=== PATIENT | male | born 1950 | race Caucasian/White ===

== ENCOUNTER 2020-03-30 07:05 | Outpatient (NON) | payer MEDICARE, SELFPAY ==
[2020-04-01 16:42] LABS: SARS-CoV-2 RNA PCR Negative
== END 2020-03-30 07:06 ==
PROVIDERS: PCP Student in an Organized Health Care Education/Training Program; Visit Provider Student in an Organized Health Care Education/Training Program
DX: R52 Pain, unspecified (principal); R68.83 Chills (without fever); Z20.828 Contact with and (suspected) exposure to other viral communicable diseases
CPT/HCPCS: 87635; C9803; U0003

== ENCOUNTER 2020-11-14 09:11 | Observation (INO) | payer MEDICARE, SELFPAY ==
[2020-11-14] VITALS (8 sets, daily range): BP systolic 106–127; BP diastolic 74–81; PULSE 60–69; RESP 16–20; TEMP 36.6–38.4; O2SAT 97–98; BMI 23.3
--- NOTE | ~2020-11-14 | CT_ITS ---
EXAMINATION: CT abdomen pelvis w con EXAM DATE: 11/14/2020 10:59 INDICATION: Low abdominal pain, dysuria. TECHNIQUE: Spiral CT of the abdomen and pelvis was performed following intravenous injection of 100 m L Omnipaque 350. Axial, coronal and sagittal images of the abdomen and pelvis were reviewed. The do se-length product (DLP) for this examination was 325.40 mGy-cm. The exposure was tailored according to patient size (auto mA exposure control), and iterative reconstruction (ASIR) was used as additiona l dose reduction technique. There is no prior study for comparison. FINDINGS: The liver, spleen, adrenal glands and pancreas are unremarkable. Gallbladder is unremarkab le. No biliary obstruction. Portal and splenic veins are patent. Kidneys enhance symmetrically. T here is no hydronephrosis. The prostate is unremarkable. The bladder is unremarkable. There is no retroperitoneal or pelvic lymphadenopathy. There is mild to moderate scattered arteriosclerotic di sease. Mild sigmoid diverticulosis with moderate adjacent inflammation, acute diverticulitis with possible m icroperforation. No gross free intraperitoneal air. No abscess. Inflammatory cancer not entirely excl udable. The stomach and small bowel are unremarkable. There is expected amount of colonic stool. N o free intraperitoneal gas. The heart is normal in size. There are no pericardial or pleural effus ions. Bibasilar subsegmental atelectasis dependent aspects. There are no osteoblastic or osteolytic lesions identified. Small umbilical fat-containing hernia. IMPRESSION: Acute sigmoid diverticulitis with possible microperforation. No abscess. Inflammatory can cer not excludable. Reviewed, dictated and finalized at location B. IMPRESSION: Acute sigmoid diverticulitis with possible microperforation. No abs cess. Inflammatory cancer not excludable.
[2020-11-14] MEDS: FAMOTIDINE 20 MG/2 ML VIAL IV PUSH ×2 (09:38→22:20)
[2020-11-14] MEDS: ONDANSETRON INJ 4 MG/2 ML VIAL IV PUSH (09:38)
[2020-11-14] MEDS: SODIUM CHLORIDE 0.9% IV 1,000 ML 999 ML IV CONT (09:38)
--- NOTE | 2020-11-14 09:44 | ED.GENADULT ---
HPI - General Adult General Chief complaint: Abdominal Pain Stated complaint: Abd Pain Time Seen by Provider: 11/14/20 09:18 Source: patient and RN notes reviewed Mode of arrival: ambulatory Limitations: no limitations History of Present Illness HPI narrative: Patient is a 70-year-old male who presents to emergency department for evaluation of GI discomfort had a liquid stool initially felt as though he may have been constipated took Ex-Lax. Patient notes he has diffuse cramping of the abdomen worse in the suprapubic region. Patient notes prior evening he did have some discomfort with urinating coupled with chills and sweats also reports nausea. Patient denies rectal bleeding emesis melena and on arrival does not appear uncomfortable has not eaten drinking or taking anything for his symptoms today. Patient notes that he is fully vaccinated against Covid Related Data Allergies Allergy/AdvReac Type Severity Reaction Status Date / Time No Known Allergies Allergy Verified 03/29/19 15:12 Review of Systems Review of Systems: All systems reviewed & are unremarkable except as noted in HPI and below PMFSH Surgical History Surgical History H/O inguinal hernia repair History of tonsillectomy Social History Social History Smoking status: Current every day smoker Gender identity (if verbalized by the patient): Male Exam Narrative: Exam Narrative: GENERAL: Well-appearing, well-nourished, and in no acute distress. HEAD: Normocephalic, atraumatic. EYES: PERRLA and EOMI. ENT: Nares clear, no rhinorrhea or epistaxis. Mucous membranes moist. CHEST: Clear to auscultation. No respiratory distress. No wheezes rales or rhonchi HEART: Regular rate and rhythm. No murmur heard. Normal peripheral pulses. ABDOMEN: Soft, generalized tenderness with voluntary guarding, nondistended EXTREMITIES: Normal range of motion. No edema. SKIN: Warm, dry, no rash. NEURO: No focal deficits. Alert and oriented x3. PSYCH: Normal mood and affect. Course Course Emergency Course: Patient in the room at this time aware of case findings treatment plan and diagnosis will be brought into the hospital given his findings for further evaluation is afebrile nontoxic-appearing no distress will be brought onto the surgical team Consultations Consultation #1: Discussed case with Dr. Og general surgeon who will admit the patient clear liquid diet IV antibiotics Date: 11/14/20 Time: 12:20 Vital Signs Vital signs: Vital Signs Temperature 98 F 11/14/20 09:16 Pulse Rate 69 11/14/20 09:16 Respiratory Rate 16 11/14/20 09:16 Blood Pressure 106/81 11/14/20 09:16 Pulse Oximetry 97 11/14/20 09:16 Temperature 98 F 11/14/20 10:27 Pulse Rate 64 11/14/20 10:35 Respiratory Rate 18 11/14/20 10:35 Blood Pressure 115/76 11/14/20 10:35 Pulse Oximetry 97 11/14/20 10:35 Medical Decision Making MDM Narrative Medical decision making narrative: Patient diagnosed microperforation diverticulitis, patient is afebrile nontoxic-appearing no distress felt appropriate inpatient therapy given the microperforation antibiotics fluids and surgical consult established patient agreeing with this plan Vital Signs Vital Signs: Vital Signs Temperature 98 F 11/14/20 09:16 Pulse Rate 69 11/14/20 09:16 Respiratory Rate 16 11/14/20 09:16 Blood Pressure 106/81 11/14/20 09:16 Pulse Oximetry 97 11/14/20 09:16 Temperature 98 F 11/14/20 10:27 Pulse Rate 64 11/14/20 10:35 Respiratory Rate 18 11/14/20 10:35 Blood Pressure 115/76 11/14/20 10:35 Pulse Oximetry 97 11/14/20 10:35 Lab Data Result diagrams: 11/14/20 09:29 11/14/20 09:29 Labs: Lab Results 11/14/20 11/14/20 11/14/20 Range/Units 09:29 09:29 09:29 WBC 12.3 H (4.5-10.0) K/mm3 RBC 4.87 (4.6-6.20) M/mm3 Hgb
[2020-11-14 09:51] LABS: Basophils Percent Auto 0.2 % (0.2-1.2); Hematocrit 46.6 % (42.0-52.0); Immature Granulocyte Absolute 0.07 K/mm3 (0.00-0.031); Immature Granulocyte Percent A 0.6 % (0-0.5); Immature Platelet Fraction Pct 2.1 % (0.9-11.2); Lymphocytes Absolute Auto 0.77 K/mm3 (0.9-3.2); Lymphocytes Percent Auto 6.3 % (18.3-44.2); Mean Corpuscular HGB Conc 34.3 g/dl (32-36); Mean Corpuscular Hemoglobin 32.9 pg (26-34); Mean Corpuscular Volume 95.7 fl (80-100); Mean Platelet Volume 9.5 fl (7.4-10.4); Monocytes Absolute Auto 1.2 K/mm3 (0.1-0.6); Monocytes Percent Auto 9.7 % (2.6-8.5); Neutrophils Absolute Auto 10.3 K/mm3 (1.3-6.7); Neutrophils Percent Auto 83.2 % (45.5-73.1); Platelet Count Result 139 k/mm3 (150-375); Red Blood Count 4.87 M/mm3 (4.6-6.20); Red Cell Distribution Width 12.8 % (11.5-14.5); White Blood Count 12.3 K/mm3 (4.5-10.0)
[2020-11-14 10:05] LABS: Alanine Aminotransferase 17 U/L (4-50); Albumin Level 4.4 g/dL (3.5-5.1); Alkaline Phosphatase 72 U/L (38-126); Anion Gap 11 mmol/L (8-16); Aspartate Amino Transferase 35 U/L (17-59); Blood Urea Nitrogen 18 mg/dL (9-20); Calcium 9.4 mg/dL (8.4-10.2); Carbon Dioxide 24 mmol/L (22-30); Chloride 100 mmol/L (98-107); Estimated CRCL calculation 58 ml/min; Estimated Glomerular Filt Rate 60; Glucose 110 mg/dL (75-110); Lipase 125 U/L (23-300); Sodium 135 mmol/L (137-145)
[2020-11-14 10:06] LABS: Add Urine Microscopic? YES; Appearance Urine Cloudy (Clear); Bacteria Urine Trace /hpf; Bilirubin Urine Negative (Negative); Blood Urine Negative (Negative); Color Urine Amber (Yellow); Glucose Urine UA Negative (Negative); Ketones Urine 1+ mg/dL (Negative); Leukocyte Esterase Ur Negative LEU/UL (Negative); Mucus Urine Few /lpf; Nitrate Urine Negative (Negative); Protein Urine Negative (Negative); RBC Urine 0-2 /hpf (0-2); Specific Grav Ur 1.021 (1.001-1.035); Urobilinogen Urine Negative mg/dL (<2.0); WBC Urine 0-3 /hpf
[2020-11-14] MEDS: HYOSCYAMINE SULFATE 0.125 MG TABLET PO (12:30)
[2020-11-14] MEDS: PANTOPRAZOLE SODIUM IV 40 MG VIAL IV PUSH (12:30)
--- NOTE | 2020-11-14 13:07 | PM.IMHP ---
H&P: HPI History of Present Illness Date/Time: 11/14/20 13:07 Chief Complaint: Lower abdominal pain Narrative: This is a 70-year-old male who presented to the ER with complaints of lower abdominal pain. He reports initially noticing mild pain about 1-2 days ago that he attributed to constipation. He took an OTC laxative and had multiple bowel movements without relief in symptoms. He reports yesterday also having chills and body aches, but no fever. Last night following dinner, his pain worsened and continued through the night. The pain was unrelenting this morning and he presented to the ER for evaluation. Never had this pain in the past. CT scan of the abd/pelvis showed acute sigmoid diverticulitis with microperforation and a small fat-containing umbilical hernia. Labs showed a WBC count of 12,300, but otherwise unremarkable. Our service was contacted by the ED physician for surgical evaluation of the diverticulitis. He is now seen in the ER. He reports his pain has improved with analgesics, but is still present. He does reports some nausea, but no vomiting. He has never had a colonoscopy in the past, and no history of diverticulitis. He reports doing Cologuard multiple times in the past that were all negative. Review of Systems Review of Systems: All systems reviewed & are unremarkable except as noted in HPI and below Constitutional: Constitutional: Reports as per HPI, Reports body ache(s) (yesterday), Reports chills, Denies fatigue, Denies fever(s) and Reports night sweats Eyes: Eyes: Reports no additional eye complaints and Denies change in vision ENT: Reports system reviewed and no additional complaints, except as documented and Reports Normal hearing present Cardiovascular: Cardiovascular: Reports no additional cardiovascular complaints, Denies chest pain and Denies leg edema Respiratory: Respiratory: Reports no additional respiratory complaints, Denies cough and Denies dyspnea Gastrointestinal: Gastrointestinal: Reports as per HPI, Reports no additional gastrointestinal complaints, Reports abdominal pain (suprapubic), Denies melena, Denies bloating, Denies hematochezia, Denies change in bowel habits, Denies tenesmus, Denies diarrhea, Denies loose stools, Reports nausea and Denies vomiting Genitourinary: Genitourinary: Denies hematuria and Denies dysuria Musculoskeletal: Musculoskeletal: Denies abnormal gait, Denies deformity and Denies joint swelling Integumentary/Breasts: Skin/Breast: Denies wounds and Denies jaundice Neurologic: Reports system reviewed and no additional complaints, except as documented, Denies dizziness, Denies focal weakness, Denies numbness and Denies tingling Psychiatric: Psychiatric: Denies anxiety and Denies depression [facility] Past Medical History Medical History History of hepatitis C Treated in 2018 Surgical History Surgical History H/O inguinal hernia repair Open right inguinal hernia repair x 2 History of tonsillectomy Family History Family History Other No pertinent family history Social History Social History Smoking status: Former smoker Additional smoking assessment comments: Smoked for 30 years and quit over 10 years ago Alcohol intake: never Substance use: never Living arrangements: alone Additional living arrangements comments: Lives alone. Occupation/Education: retired Additional occupation/education comments: Living in [place], from [place], for the past 2 years working on an [employer]ion. 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 Gender identity (if verbalized by the patient): Male Meds Home Medications and Allergies Allergies Allergy/AdvReac Type Severity Reaction Status Date / Time No Known Allergies Allergy Verified 03/29/19 15:12 Mayuri
[2020-11-14] MEDS: MORPHINE SULFATE (*CRX) 4 MG/ML INJ IV PUSH (13:10)
[2020-11-14] MEDS: LACTATED RINGERS 1,000 ML 125 ML IV CONT ×2 (13:14→23:43)
--- NOTE | 2020-11-14 14:00 | PC.NURSE ---
Pt asked Adeline Duran to go to car to retrieve overnight bag, he agreed. Pt ambulatory to vehicle and back without incident.
--- NOTE | 2020-11-14 14:47 | ADMGEN ---
This patient, Dorian Stephens, was admitted to 2 Medical Room 258-. Patient/family oriented to hospital policies and general routines including ID bracelet, bed and alarms, visiting hours, pain management, procedures, bathroom and other care routines, personal items, smoking policy, room service/diet, and visiting hours. Information on how to activate the Rapid Response Team has been discussed. Patient/Family are encouraged to report perceived risks to care and to ask questions if they do not understand what they are told or what they should do.
--- NOTE | 2020-11-14 20:15 | PC.NURSE ---
Per Dr. Og no blood cultures needed at this time. Treat fevers with ordered PRN IV tylenol.
[2020-11-14] MEDS: MIRTAZAPINE 15 MG TABLET PO (20:28)
[2020-11-15 05:16] LABS: Basophils Percent Auto 0.2 % (0.2-1.2); Eosinophils Absolute Auto 0.1 K/mm3 (0-0.3); Eosinophils Percent Auto 1.2 % (0-4.4); Hematocrit 41.3 % (42.0-52.0); Hemoglobin 14.1 g/dL (14.0-18.0); Immature Granulocyte Absolute 0.05 K/mm3 (0.00-0.031); Immature Granulocyte Percent A 0.5 % (0-0.5); Immature Platelet Fraction Pct 1.9 % (0.9-11.2); Lymphocytes Percent Auto 11.8 % (18.3-44.2); Mean Corpuscular HGB Conc 34.1 g/dl (32-36); Mean Corpuscular Hemoglobin 33.2 pg (26-34); Mean Corpuscular Volume 97.2 fl (80-100); Mean Platelet Volume 9.6 fl (7.4-10.4); Monocytes Absolute Auto 0.8 K/mm3 (0.1-0.6); Monocytes Percent Auto 8.8 % (2.6-8.5); Neutrophils Absolute Auto 7.3 K/mm3 (1.3-6.7); Neutrophils Percent Auto 77.5 % (45.5-73.1); Platelet Count Result 120 k/mm3 (150-375); Red Blood Count 4.25 M/mm3 (4.6-6.20); Red Cell Distribution Width 12.8 % (11.5-14.5); White Blood Count 9.4 K/mm3 (4.5-10.0)
[2020-11-15 05:18] VITALS: BP 117/67; PULSE 52; RESP 18; TEMP 37.2; O2SAT 97
[2020-11-15 06:19] LABS: Anion Gap 6 mmol/L (8-16); Blood Urea Nitrogen 14 mg/dL (9-20); Calcium 8.6 mg/dL (8.4-10.2); Carbon Dioxide 29 mmol/L (22-30); Chloride 104 mmol/L (98-107); Estimated CRCL calculation 53 ml/min; Estimated Glomerular Filt Rate 55; Glucose 91 mg/dL (75-110); Sodium 139 mmol/L (137-145)
[2020-11-15] MEDS: SACCHAROMYCES BOULARDII 250 MG CAPSULE PO ×3 (09:16→17:26)
[2020-11-15] MEDS: FAMOTIDINE 20 MG/2 ML VIAL IV PUSH ×2 (09:16→20:58)
--- NOTE | 2020-11-15 09:56 | PM.PNGS ---
Progress Note: A&P Assessment and Plan (1) Diverticulitis of colon with perforation: Code(s): K57.20 - Diverticulitis of large intestine with perforation and abscess without bleeding Status: Acute Assessment and Plan: better, exam improved, cont abx, soft diet, home in am if tabatha diet Subjective Subjective Date/Time Seen: 11/15/20 09:56 feels better, soreness improved, tabatha clears Review of Systems Review of Systems: All systems reviewed & are unremarkable except as noted in HPI and below Exam Const: General: cooperative, comfortable and no acute distress Nutritional Appearance: average body habitus Orientation/consciousness: patient oriented x3 Resp: Effort & Inspection: normal respiratory effort Auscultation: clear to auscultation bilaterally Cardio: Rate: regular rate Rhythm: regular rhythm GI: Inspection: normal to inspection GI Palp: Yes Soft to palpation, Yes Tenderness to palpation present (GI) and No Guarding due to palpation present (GI) Other: soft, sl dist, mild TTP LLQ Objective Data Vital Signs Vital Signs: Vital Signs - 24 hr 11/14/20 10:27 11/14/20 10:35 11/14/20 15:02 Temperature 36.6 C 36.8 C Pulse Rate 64 64 Respiratory Rate 18 18 Blood Pressure 115/76 115/76 Pulse Oximetry 97 97 11/14/20 15:17 11/14/20 20:22 11/14/20 20:25 Temperature 36.6 C 38.4 C H 38.4 C H Pulse Rate 60 64 Respiratory Rate 18 20 Blood Pressure 125/78 127/74 Pulse Oximetry 97 98 11/14/20 22:25 11/15/20 05:18 Temperature 37.1 C 37.2 C Pulse Rate 52 L Respiratory Rate 18 Blood Pressure 117/67 Pulse Oximetry 97 Intake/Output Intake/Output: Intake & Output 11/12/20 11/13/20 11/14/20 11/15/20 23:59 23:59 23:59 23:59 Intake Total 2660 970 Output Total 500 1800 Balance 2160 -830 Meds/Results Medications: Active Medications Generic Name Dose Route Start Last Admin Trade Name Freq PRN Reason Stop Dose Admin Famotidine 20 mg 11/14/20 21:00 11/15/20 09:16 Famotidine 20 Mg/2 Ml Vial IV PUSH 20 mg Q12HR DAWIT Administration Acetaminophen 1,000 mg in 100 mls @ 400 mls/hr 11/14/20 12:21 11/14/20 20:37 Ofirmev 1,000 Mg Ivpb IVPB 11/15/20 12:22 Infused Q6H PRN Infusion Mild Pain (1-3) or Fever Lactated Ringer's 1,000 mls @ 125 mls/hr 11/14/20 12:25 11/14/20 23:43 Lr - Lactated Ringers Iv IV CONT 125 mls/hr .Q8H DAWIT Administration Piperacillin/Tazobactam/Dextrose 3.375 gm in 50 mls @ 100 mls/hr 11/14/20 18:00 11/15/20 05:35 Zosyn 3.375 Gm/D5w 50ml Pm IVPB Infused Q6HR DAWIT Infusion Mirtazapine 15 mg 11/14/20 21:00 11/14/20 20:28 Mirtazapine 15 Mg Tablet PO 15 mg HS DAWIT Administration Ondansetron HCl 4 mg 11/14/20 12:21 Ondansetron Inj 4 Mg/2 Ml Vial IV PUSH Q4H PRN Nausea Pantoprazole Sodium 40 mg 11/15/20 09:00 Pantoprazole Sodium Iv 40 Mg Vial IV PUSH QAM DAWIT Saccharomyces Boulardii 250 mg 11/15/20 09:00 11/15/20 09:16 Saccharomyces Boulardii 250 Mg Capsule PO 250 mg TID DAWIT Administration Radiology Results: ITS Impressions Abdomen/Pelvis CT 11/14/20 11:06 IMPRESSION: Acute sigmoid diverticulitis with possible microperforation. No abscess. Inflammatory cancer not excludable. Labs Labs: Laboratory Results - last 24 hr 11/14/20 11/14/20 11/14/20 09:29 09:29 09:29 WBC 12.3 H RBC 4.87 Hgb 16.0 Hct 46.6 MCV 95.7 MCH 32.9 MCHC 34.3 RDW 12.8 Plt Count 139 L MPV 9.5 Immature Gran % (Auto) 0.6 H Neut % (Auto) 83.2 H Lymph % (Auto) 6.3 L [place] % (Auto) 9.7 H Eos % (Auto) 0.0 Baso % (Auto) 0.2 Lymph # (Auto) 0.77 L [place] # (Auto) 1.2 H Eos # (Auto) 0.0 Baso # (Auto) 0.0 Abs Immat Gran (auto) 0.07 H Absolute Neuts (auto) 10.3 H Absolute Nucleated RBC 0.0 Nucleated RBC % 0.0 % Immature Plt Fraction 2.1 Sodium 135 L Potassium 4.0 Chloride 100 Carbon Dioxi
[2020-11-15 10:35] VITALS: O2SAT 95
[2020-11-15] MEDS: PANTOPRAZOLE SODIUM IV 40 MG VIAL IV PUSH (11:15)
[2020-11-15 14:00] VITALS: BP 111/66; PULSE 50; RESP 16; TEMP 37.2; O2SAT 98
[2020-11-15] MEDS: LACTATED RINGERS 1,000 ML 125 ML IV CONT (20:57)
[2020-11-15] MEDS: MIRTAZAPINE 15 MG TABLET PO (20:59)
[2020-11-15 21:23] VITALS: BP 110/63; PULSE 58; RESP 18; TEMP 36.8; O2SAT 98
[2020-11-16] MEDS: LACTATED RINGERS 1,000 ML 125 ML IV CONT (05:21)
[2020-11-16 06:00] VITALS: BP 129/74; PULSE 60; RESP 18; TEMP 36.7; O2SAT 94
[2020-11-16 07:02] LABS: Hematocrit 44.8 % (42.0-52.0); Hemoglobin 15.8 g/dL (14.0-18.0); Immature Platelet Fraction Pct 2.9 % (0.9-11.2); Mean Corpuscular HGB Conc 35.3 g/dl (32-36); Mean Corpuscular Hemoglobin 33.6 pg (26-34); Mean Corpuscular Volume 95.3 fl (80-100); Mean Platelet Volume 9.6 fl (7.4-10.4); Platelet Count Result 127 k/mm3 (150-375); Red Cell Distribution Width 12.4 % (11.5-14.5); White Blood Count 6.3 K/mm3 (4.5-10.0)
[2020-11-16] MEDS: FAMOTIDINE 20 MG/2 ML VIAL IV PUSH (08:37)
[2020-11-16] MEDS: PANTOPRAZOLE SODIUM IV 40 MG VIAL IV PUSH (08:37)
[2020-11-16] MEDS: SACCHAROMYCES BOULARDII 250 MG CAPSULE PO ×2 (08:37→12:30)
[2020-11-16] MEDS: polyethylene glycoL 3350 17 GM POWD.PACK PO (11:44)
[2020-11-16 14:00] VITALS: BP 144/83; PULSE 53; RESP 16; TEMP 36.4; O2SAT 98
--- NOTE | 2020-11-16 14:25 | PM.DS ---
DS: Admitting Diagnosis Admitting Diagnosis Admitting Diagnosis: Diverticulitis DS: Discharge Diagnosis Discharge Diagnosis (1) Diverticulitis of colon with perforation: Code(s): K57.20 - Diverticulitis of large intestine with perforation and abscess without bleeding Status: Acute DS: Summary Hospital Course Reason for hospitalization: diverticulitis Hospital Course: this is a 70-year-old man presented to the emergency department on 11/14/2020 with complaints of left lower quadrant abdominal pain. He was found have an elevated white blood count and CT showed acute diverticulitis with possible microperforation. He was placed on Zosyn and was admitted to the hospital. His pain was controlled and he was initially placed on bowel rest. Once his pain improved he was started on a clear liquid diet and was slowly advanced over 2 days to a solid diet. His white blood count normalized and he showed no fevers or other worsening symptoms. On 11/16/2020 his pain was almost resolved and he was tolerating a regular diet. Was then discharged on 11/17/2019. Status at Discharge Functional status at discharge: independent ambulation Overall status at discharge: patient is progressing back to baseline Time Spent with Patient Time attestation: Total time spent providing and/or coordinating discharge services: Time spent: Less than 30 minutes Exam Const: General: comfortable and no acute distress Orientation/consciousness: patient oriented x3 Limitations: no limitations Resp: Effort & Inspection: normal respiratory effort Auscultation: clear to auscultation bilaterally Cardio: Jugular venous distension: no JVD Rate: regular rate Rhythm: regular rhythm Heart sounds: S1 normal heart sound present and S2 normal heart sound present GI: Inspection: normal to inspection and non-distended GI Palp: Yes Soft to palpation, Yes Tenderness to palpation present (GI) (mild left lower quadrant), No Guarding due to palpation present (GI) and No Rebound tenderness present DS: Data Data Completed and Pending Labs on day of discharge: Labs from last 24 hours 11/16/20 06:51 WBC 6.3 RBC 4.70 Hgb 15.8 Hct 44.8 MCV 95.3 MCH 33.6 MCHC 35.3 RDW 12.4 Plt Count 127 L MPV 9.6 % Immature Plt Fraction 2.9 Imaging Radiologist's impression: ITS Impressions Abdomen/Pelvis CT 11/14/20 11:06 IMPRESSION: Acute sigmoid diverticulitis with possible microperforation. No abscess. Inflammatory cancer not excludable. Discharge Plan Discharge Attending physician on discharge: Juany Og Consulting providers: Juan Duran Discharging Clinician: Jesus Marques Patient Disposition: Home, Self-Care Activity: may shower, unlimited and as tolerated Diet: low fiber Discharge Instructions: Stay on low fiber diet for 2 weeks, then may slowly transition back to a high fiber diet. Patient Instructions: Antibiotic Form, Diverticulitis (DC), Diverticulitis (GEN), Low Fiber Diet (GEN) Stand Alone Forms: General Discharge Information Follow-up/Referrals: Juany Og MD [Physician] - Mauricio,DO Patrick [Primary Care Provider] - Discharge Medications: New ciprofloxacin HCl 500 mg tablet 500 mg PO Q12H Qty: 14 RF: 0 metronidazole [Flagyl] 500 mg tablet 500 mg PO Q12H Qty: 14 RF: 0 Continued mirtazapine 15 mg tablet 15 mg PO HS RF: 0 doxylamine succinate 25 mg Tablet 25 mg PO HS PRN (Reason: Sleep) RF: 0 Date of admission: 11/14/20 12:22 Primary Care Provider: Mauricio,Patrick Admitting Provider: Juany Og Attending physician on admission: Juany Og Condition: Stable
== END 2020-11-16 16:10 | disposition home or self-care (01) ==
LOC: ANHED 12:04 → ANH2MED 11-15 09:53
PROVIDERS: Emergency Medicine Emergency Medical Services; Admitting Provider Surgery; Emergency Provider Emergency Medicine; PCP Student in an Organized Health Care Education/Training Program; Visit Provider Surgery
DX: K57.20 Diverticulitis of large intestine with perforation and abscess without bleeding (principal); Z86.19 Personal history of other infectious and parasitic diseases; Z87.891 Personal history of nicotine dependence
CPT/HCPCS: 36415; 74177; 80048; 80053; 81001; 83690; 85025; 85027; 85055; 96361; 96365; 96366; 96375; 96376; 99285; A9270; C9113; G0378; J0131; J2270; J2405; J2543; J7030; J7120; Q9967

== ENCOUNTER 2021-10-13 09:22 | Emergency (ER) | payer MEDICARE, SELFPAY ==
[2021-10-13 10:03] VITALS: BP 122/97; PULSE 50; RESP 14; TEMP 36.7; O2SAT 100
--- NOTE | 2021-10-13 10:57 | ED.WOUNDLAC ---
HPI - Wound/Laceration General Chief Complaint: Wound/Laceration Stated Complaint: laceration to R index finger Time Seen by Provider: 10/13/21 10:21 History of Present Illness HPI narrative: 71-year-old male presents to the ER today for evaluation of a laceration to his right index finger. Injury happened 2 weeks ago. He is concerned because it has not completely healed. He is is expecting to get sutures at today's visit. No redness, swelling, or drainage from the wound. Related Data Home Medications Medication Instructions Recorded Confirmed doxylamine succinate 25 mg tablet 25 mg PO HS PRN Sleep 11/14/20 11/27/20 mirtazapine 15 mg tablet 15 mg PO HS 11/14/20 11/27/20 Allergies Allergy/AdvReac Type Severity Reaction Status Date / Time No Known Allergies Allergy Verified 11/27/20 09:41 Review of Systems Review of Systems: CONSTITUTIONAL: Denies fever, chills, or sweats. EYES: Denies visual changes, redness, or discharge. ENT: Denies rhinorrhea, congestion, sore throat, or otalgia. CARDIOVASCULAR: Denies chest pain, palpitations, or edema. RESPIRATORY: Denies cough or dyspnea. GASTROINTESTINAL: Denies abdominal pain, nausea, vomiting, or diarrhea. GENITOURINARY: Denies dysuria or hematuria. SKIN: As per HPI MUSCULOSKELETAL: Denies back pain, joint pain, or myalgia. NEUROLOGIC: Denies headache, numbness, dizziness, or weakness. PSYCHIATRIC: Denies anxiety or depression. [facility] Past Medical History Medical History History of hepatitis C Treated in 2018 Surgical History Surgical History H/O inguinal hernia repair Open right inguinal hernia repair x 2 History of tonsillectomy Family History Family History Other No pertinent family history Social History Social History Smoking status: Former smoker Additional smoking assessment comments: Smoked for 30 years and quit over 10 years ago Alcohol intake: never Substance use: never Additional living arrangements comments: Lives alone. 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 Gender identity (if verbalized by the patient): Male Spiritual care concerns: No Exam Narrative: GENERAL: Well-appearing, well-nourished, and in no acute distress. HEAD: Normocephalic, atraumatic. NECK: Supple. CHEST: No respiratory distress. HEART: Regular rate and rhythm. . SKIN: small <1cm wound, crescent shape over the PIP joint of right index finger, dry wound bed, partially healed wound NEURO: No focal deficits. Alert and oriented x3. PSYCH: Normal mood and affect. Course Course Emergency Course: Discussed with patient that the wound is 2 weeks old and will have to heal by secondary intention. Pt given reassurance that it may need additional time to heal completely. Vital Signs Vital signs: Vital Signs Temperature 36.7 C 10/13/21 10:03 Pulse Rate 50 L 10/13/21 10:03 Respiratory Rate 14 10/13/21 10:03 Blood Pressure 122/97 H 10/13/21 10:03 Pulse Oximetry 100 10/13/21 10:03 Oxygen Delivery Room Air 10/13/21 10:03 Temperature 36.7 C 10/13/21 10:03 Pulse Rate 50 L 10/13/21 10:03 Respiratory Rate 14 10/13/21 10:03 Blood Pressure 122/97 H 10/13/21 10:03 Pulse Oximetry 100 10/13/21 10:03 Oxygen Delivery Room Air 10/13/21 10:03 Discharge Plan Discharge Clinical Impression: Laceration of right index finger Patient Disposition: Home, Self-Care Condition: Stable Instructions: Antibiotic Form, Chronic Wounds (ED) Additional Instructions: Continue to apply neosporin and bandaid to wound. Your wound is healing even if slowly. There is no evidence for infection. Pre
== END 2021-10-13 11:20 | disposition home or self-care (01) ==
PROVIDERS: Emergency Provider Nurse Practitioner Family; PCP Student in an Organized Health Care Education/Training Program
DX: S61.210A Laceration without foreign body of right index finger without damage to nail, initial encounter (principal); X58.XXXA Exposure to other specified factors, initial encounter
CPT/HCPCS: 99282

== ENCOUNTER 2023-04-08 10:45 | Emergency (ER) | payer MEDICARE, SELFPAY ==
--- NOTE | ~2023-04-08 | XR_ITS ---
EXAMINATION: XR chest 2V 04/08/2023 12:05 INDICATION: Chest tightness PROCEDURE: 2 view chest COMPARISON: No prior studies for comparison. FINDINGS: The lungs are clear. The cardiomediastinal silhouette is within normal limits. There are no pleural effusions. There is no pneumothorax suspected. IMPRESSION: 1: NO ACUTE CARDIOPULMONARY DISEASE. Reviewed, dictated and finalized at location L. TROCARDIOGRAPH OPERATOR
[2023-04-08 10:50] VITALS: BP 146/95; PULSE 81; RESP 16; TEMP 37.2; O2SAT 99
--- NOTE | 2023-04-08 10:59 | ECG_ITS ---
Measurements Intervals [place] Rate: 71 P: 79 MA: 203 QRS: -61 QRSD: 100 T: 65 QT: 373 QTc: 406 Interpretive Statements SINUS RHYTHM WITH SINUS ARRHYTHMIA POSSIBLE RIGHT ATRIAL ENLARGEMENT LEFT ATRIAL ENLARGEMENT BORDERLINE AV CONDUCTION DELAY INCOMPLETE RIGHT BUNDLE BRANCH BLOCK LEFT ANTERIOR FASCICULAR BLOCK CANNOT RULE OUT SEPTAL INFARCT, AGE INDETERMINATE BASELINE ARTIFACT- III, AVL, V5-V6 ABNORMAL ECG NO PREVIOUS ECG AVAILABLE FOR COMPARISON Electronically Signed On 04-08-2023 11:26:33 [facility] by Darrin Winslow D.O.
[2023-04-08 11:31] LABS: Basophils Percent Auto 0.5 % (0.2-1.2); Eosinophils Percent Auto 0.2 % (0-4.4); Hematocrit 42.5 % (42.0-52.0); Hemoglobin 14.7 g/dL (14.0-18.0); Immature Granulocyte Absolute 0.01 K/mm3 (0.00-0.031); Immature Granulocyte Percent A 0.2 % (0-0.5); Immature Platelet Fraction Pct 2.2 % (0.9-11.2); Lymphocytes Absolute Auto 0.78 K/mm3 (0.9-3.2); Mean Corpuscular HGB Conc 34.6 g/dl (32-36); Mean Corpuscular Hemoglobin 33.4 pg (26-34); Mean Corpuscular Volume 96.6 fl (80-100); Mean Platelet Volume 9.5 fl (7.4-10.4); Monocytes Absolute Auto 0.4 K/mm3 (0.1-0.6); Monocytes Percent Auto 7.1 % (2.6-8.5); Neutrophils Absolute Auto 4.8 K/mm3 (1.3-6.7); Platelet Count Result 138 k/mm3 (150-375); Red Cell Distribution Width 12.2 % (11.5-14.5)
[2023-04-08 11:37] LABS: Appearance Urine Cloudy (Clear); Bacteria Urine None Seen /hpf; Bilirubin Urine Negative (Negative); Blood Urine Negative (Negative); Color Urine Yellow (Yellow); Glucose Urine UA Negative (Negative); Ketones Urine Negative (Negative); Leukocyte Esterase Ur Trace LEU/UL (Negative); Nitrate Urine Negative (Negative); Non Pathogenic Casts 0-2; Protein Urine Negative (Negative); RBC Urine 0-2 /hpf (0-2); Specific Grav Ur 1.013 (1.001-1.035); Squamous Epithelial Cell Urine None seen /hpf (Few); Urobilinogen Urine 0.2 mg/dL (<2.0); WBC Urine 0-5 /hpf; pH Urine 7.5 (5.0-9.0)
[2023-04-08 11:42] LABS: Add Urine Microscopic? YES; Alanine Aminotransferase 18 U/L (6-50); Albumin Level 4.4 g/dL (3.5-5.1); Alkaline Phosphatase 66 U/L (38-126); Anion Gap 11 mmol/L (8-16); Aspartate Amino Transferase 35 U/L (17-59); Bilirubin,Total 0.6 mg/dL (0.2-1.3); Blood Urea Nitrogen 18 mg/dL (9-20); Calcium 9.3 mg/dL (8.4-10.2); Carbon Dioxide 22 mmol/L (22-30); Chloride 99 mmol/L (98-107); Estimated CRCL calculation 68 ml/min; Estimated Glomerular Filt Rate > 60; Glucose 101 mg/dL (65-110); Potassium 4.1 mmol/L (3.4-5.0); Sodium 132 mmol/L (137-145)
[2023-04-08 11:53] LABS: Troponin I < 0.012 ng/mL (0.000-0.034)
[2023-04-08 13:29] VITALS: BP 140/84; PULSE 63; RESP 17; O2SAT 99
[2023-04-08 13:32] VITALS: BP 127/98; PULSE 58; RESP 12; O2SAT 98
[2023-04-08 13:47] VITALS: BP 134/80; PULSE 55; RESP 16; TEMP 36.4; O2SAT 98
--- NOTE | 2023-04-08 14:05 | ED.GENADULT ---
HPI - General Adult General Chief complaint: Unspecified Stated complaint: INT TINGLING TO EXT Time Seen by Provider: 04/08/23 13:05 Source: patient Mode of arrival: ambulatory Limitations: no limitations History of Present Illness HPI narrative: 72 YEARS OLD WHITE MALE DROVE HIMSELF TO THE EMERGENCY ROOM WITH MULTIPLE SYMPTOMS. PATIENT REPORTED THAT HE BEEN WORKING OUT TOO MUCH AND PROBABLY HURT HIS ARM AND RIGHT HIP 2 WEEKS AGO. CURRENTLY NO PAIN. PATIENT WAS CONCERNED ABOUT NOT DOING TOO MUCH ACTIVITY, TODAY DEVELOPED SOME NUMBNESS OF THE FEET BILATERALLY, WENT TO WALK FOR AT LEAST 1 HOUR WITH COMPLETE IMPROVEMENT. CURRENTLY IS ASYMPTOMATIC, JUST HUNGRY AND ANXIOUS. HE DENIES ANY FEVER, CHILLS, NAUSEA, VOMITING, DIARRHEA, CONSTIPATION, CHEST PAIN, SHORTNESS OF BREATH, HEADACHE OR FOCAL NEURO DEFICIT Related Data Home Medications Medication Instructions Recorded Confirmed doxylamine succinate 25 mg tablet 25 mg PO HS PRN Sleep 11/14/20 11/27/20 mirtazapine 15 mg tablet 15 mg PO HS 11/14/20 11/27/20 Allergies Allergy/AdvReac Type Severity Reaction Status Date / Time No Known Allergies Allergy Verified 11/27/20 09:41 Review of Systems Review of Systems: All systems reviewed & are unremarkable except as noted in HPI and below PMFSH Past Medical History Medical History History of hepatitis C Treated in 2018 Surgical History Surgical History H/O inguinal hernia repair Open right inguinal hernia repair x 2 History of tonsillectomy Family History Family History Other No pertinent family history Social History Social History Smoking status: Former smoker Additional smoking assessment comments: Smoked for 30 years and quit over 10 years ago Alcohol intake: never Substance use: never Living arrangements: alone Additional living arrangements comments: Lives alone. 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 Gender identity (if verbalized by the patient): Male Spiritual care concerns: No Exam Narrative: GENERAL APPEARANCE: WELL-DEVELOPED, WELL-NOURISHED PATIENT WEARING GLOVES SKIN: NORMAL COLOR HEAD: NORMOCEPHALIC, NONTRAUMATIC EYES: CLEAR CONJUNCTIVA ENT: OROPHARYNX NORMAL, EARS NORMAL, NOSE NORMAL NECK: SUPPLE, NONTENDER CHEST AND RESPIRATORY: AIRWAY PATENT, NO RESPIRATORY DISTRESS, NO ACCESSORY MUSCLE USE HEART: REGULAR RATE/RHYTHM ABDOMEN: SOFT, NONTENDER, NO ORGANOMEGALY, QUIET BOWEL SOUNDS VASCULAR: NORMAL PERIPHERAL PULSES, NORMAL CAPILLARY REFILL. MUSCULOSKELETAL: NORMAL RANGE OF MOTION, NONTENDER BACK NEUROLOGIC: ALERT AND ORIENTED ?3, PACKAGING DESIGN ENGINEER IS NORMAL TESTED, NO GROSS MOTOR DEFICIT Course Reevaluation(s) Reevaluation #1: CURRENTLY PATIENT FEELING ANXIOUS AND HUNGRY OTHERWISE FEELING OKAY. THE PATIENT IS ASKING ME THAT HE EATS A LOT OF FRUIT AND VEGETABLE AND IF THIS IS OKAY OR NOT. Date: 04/08/23 Time: 14:44 Vital Signs Vital signs: Vital Signs Temperature 37.2 C 04/08/23 10:50 Pulse Rate 81 04/08/23 10:50 Respiratory Rate 16 04/08/23 10:50 Blood Pressure 146/95 H 04/08/23 10:50 Pulse Oximetry 99 04/08/23 10:50 Oxygen Delivery Room Air 04/08/23 10:50 Temperature 37.2 C 04/08/23 10:50 Pulse Rate 81 04/08/23 10:50 Respiratory Rate 16 04/08/23 10:50 Blood Pressure 146/95 H 04/08/23 10:50 Pulse Oximetry 9
[2023-04-08 14:51] LABS: Creatine Kinase 227 U/L (55-170)
== END 2023-04-08 15:02 | disposition home or self-care (01) ==
PROVIDERS: Emergency Provider Emergency Medicine; PCP Student in an Organized Health Care Education/Training Program
DX: F41.9 Anxiety disorder, unspecified (principal); Z86.19 Personal history of other infectious and parasitic diseases; Z87.891 Personal history of nicotine dependence; R94.31 Abnormal electrocardiogram [ECG] [EKG]; I45.2 Bifascicular block
CPT/HCPCS: 36415; 71046; 80053; 81001; 82550; 84484; 85025; 85055; 93005; 99284

== ENCOUNTER 2023-04-15 14:26 | Emergency (ER) | payer MEDICARE, SELFPAY ==
[2023-04-15 14:28] VITALS: BP 143/87; PULSE 66; RESP 18; TEMP 37.2; O2SAT 99
--- NOTE | 2023-04-15 14:33 | ECG_ITS ---
Measurements Intervals [place] Rate: 60 P: 76 WY: 198 QRS: -52 QRSD: 100 T: 63 QT: 374 QTc: 376 Interpretive Statements SINUS RHYTHM MARKED LEFT AXIS DEVIATION [QRS AXIS < -30] COMPARED TO ECG 04/08/2023 11:12:44 NO SIGNIFICANT CHANGE Electronically Signed On 04-15-2023 19:18:15 SUBWAY TRAIN DRIVER by Yessenia Duran M.D.
[2023-04-15 19:01] VITALS: BP 143/78; PULSE 59; RESP 16; O2SAT 99
== END 2023-04-15 19:05 | disposition left against medical advice (07) ==
PROVIDERS: Emergency Provider Emergency Medicine; PCP Student in an Organized Health Care Education/Training Program
DX: R42 Dizziness and giddiness (principal)
CPT/HCPCS: 93005; 99199

== ENCOUNTER 2023-04-17 18:39 | Emergency (ER) | payer MEDICARE, SELFPAY ==
[2023-04-17 18:51] VITALS: BP 139/78; PULSE 58; RESP 18; TEMP 36.8; O2SAT 97
--- NOTE | 2023-04-17 19:50 | PC.NURSE ---
Pt states he wants to leave and will f/u with PCP Wednesday.
== END 2023-04-17 23:03 | disposition left against medical advice (07) ==
LOC: ANHED 21:16
PROVIDERS: PCP Student in an Organized Health Care Education/Training Program
DX: R42 Dizziness and giddiness (principal)
CPT/HCPCS: 99199

== ENCOUNTER 2023-04-21 15:37 | Emergency (ER) | payer MEDICARE, SELFPAY ==
--- NOTE | ~2023-04-21 | XR_ITS ---
EXAMINATION: XR chest 2V DATE: 04/21/2023 16:14 INDICATION: Chest pain. TECHNIQUE: Frontal and lateral views of the chest were obtained. COMPARISON: Chest 2 views 04/08/2023, CT abdomen and pelvis 11/14/2020 FINDINGS: There is no pneumonia, pleural effusion, or pneumothorax. The heart size is normal. IMPRESSION: 1. No acute cardiopulmonary disease. Reviewed, dictated and finalized at location A. RVISOR STITCHING DEPARTMENT
[2023-04-21 15:39] VITALS: BP 149/89; PULSE 60; RESP 16; TEMP 36.6; O2SAT 98
--- NOTE | 2023-04-21 15:40 | ECG_ITS ---
Measurements Intervals [place] Rate: 61 P: 73 W[place]: 194 QRS: -8 QRSD: 99 T: 63 QT: 378 QTc: 384 Interpretive Statements SINUS RHYTHM CANNOT RULE OUT SEPTAL MYOCARDIAL INFARCTION , PROBABLY OLD [40+ ms Q WAVE IN V1/V2] COMPARED TO ECG 04/15/2023 14:38:41 NO SIGNIFICANT CHANGES Electronically Signed On 04-21-2023 16:43:41 WELDER FABRICATOR by Ansley Jim M.D.
[2023-04-21 16:19] LABS: Basophils Percent Auto 0.5 % (0.2-1.2); Eosinophils Absolute Auto 0.1 K/mm3 (0-0.3); Eosinophils Percent Auto 0.8 % (0-4.4); Hematocrit 41.8 % (42.0-52.0); Hemoglobin 14.3 g/dL (14.0-18.0); Immature Granulocyte Absolute 0.04 K/mm3 (0.00-0.031); Immature Granulocyte Percent A 0.5 % (0-0.5); Immature Platelet Fraction Pct 2.9 % (0.9-11.2); Lymphocytes Absolute Auto 1.16 K/mm3 (0.9-3.2); Lymphocytes Percent Auto 15.4 % (18.3-44.2); Mean Corpuscular HGB Conc 34.2 g/dl (32-36); Mean Corpuscular Hemoglobin 33.2 pg (26-34); Mean Platelet Volume 9.9 fl (7.4-10.4); Monocytes Absolute Auto 0.7 K/mm3 (0.1-0.6); Neutrophils Absolute Auto 5.6 K/mm3 (1.3-6.7); Neutrophils Percent Auto 73.8 % (45.5-73.1); Platelet Count Result 129 k/mm3 (150-375); Red Blood Count 4.31 M/mm3 (4.6-6.20); White Blood Count 7.6 K/mm3 (4.5-10.0)
[2023-04-21 16:28] LABS: INR 1.1; Prothrombin Time 14.2 Seconds (11.1-14.7)
[2023-04-21 16:29] LABS: Partial Thromboplastin Time 27.9 SECONDS (22.3-36.8)
[2023-04-21 16:31] LABS: Alanine Aminotransferase 19 U/L (6-50); Albumin Level 4.5 g/dL (3.5-5.1); Alkaline Phosphatase 63 U/L (38-126); Anion Gap 6 mmol/L (8-16); Aspartate Amino Transferase 36 U/L (17-59); Bilirubin,Total 0.5 mg/dL (0.2-1.3); Blood Urea Nitrogen 25 mg/dL (9-20); Calcium 9.3 mg/dL (8.4-10.2); Carbon Dioxide 30 mmol/L (22-30); Chloride 93 mmol/L (98-107); Estimated CRCL calculation 64 ml/min; Estimated Glomerular Filt Rate > 60; Glucose 141 mg/dL (65-110); Lipase 136 U/L (23-300); Potassium 4.1 mmol/L (3.4-5.0); Sodium 129 mmol/L (137-145)
[2023-04-21 16:43] LABS: Troponin I < 0.012 ng/mL (0.000-0.034)
--- NOTE | 2023-04-21 17:33 | PC.NURSE ---
no answer for room at 1732
--- NOTE | 2023-04-21 17:46 | PC.NURSE ---
no answer for room at 1748
--- NOTE | 2023-04-21 18:00 | PC.NURSE ---
no answer x3 for room at this time.
== END 2023-04-21 17:33 | disposition left against medical advice (07) ==
LOC: ANHED 18:04
PROVIDERS: Emergency Provider Emergency Medicine; PCP Student in an Organized Health Care Education/Training Program
DX: R07.9 Chest pain, unspecified (principal)
CPT/HCPCS: 36415; 71046; 80053; 83690; 84484; 85025; 85055; 85610; 85730; 93005; 99199

== ENCOUNTER 2023-04-22 01:14 | Emergency (ER) | payer MEDICARE, SELFPAY ==
--- NOTE | ~2023-04-22 | CT_ITS ---
CT of the Abdomen and Pelvis: Indication: Abdominal pain Technique: 2.5 mm axial scans were obtained through the abdomen and pelvis following intravenous adm inistration of 100 cc of Omnipaque 350. Dose reduction technique was used on this scan by utilizing a utomated exposure control and iterative reconstruction technique. The dose-length product (DLP) was 3 12.04 mGy-cm. COMPARISON: 11/14/2020 Findings: Scans through the lung bases are unremarkable. The liver, spleen, pancreas, gallbladder, adrenals and kidneys are within normal limits. There are at herosclerotic calcifications of the aorta. No lymphadenopathy. No bowel obstruction or bowel wall thickening. Appendix measures 8 mm in diameter. Questionable minim al infiltration of periappendiceal fat. No abscess or free air.. Images through the pelvis were performed. Urinary bladder unremarkable. No pelvic mass seen. No ascit es. Impression: Findings raise the possibility of very early acute appendicitis. Clinical correlation required. Reviewed, dictated and finalized at [facility]. EMATICAL STATISTICIAN Impression: Findings raise the possibility of very early acute appendicitis. Clinical corre lation required.
[2023-04-22 01:18] VITALS: BP 128/78; PULSE 53; RESP 14; TEMP 36.7; O2SAT 100
--- NOTE | 2023-04-22 02:20 | ED.GENADULT ---
HPI - General Adult General Chief complaint: Abdominal Pain Stated complaint: UMBILICAL PAIN Time Seen by Provider: 04/22/23 01:36 History of Present Illness HPI narrative: Patient is 72-year-old gentleman who presents to emergency department with chief complaint of epigastric pain. Patient reports that time he feels though he has had multiple heart attacks over the last several years the patient reports that he has not had a cardiac catheterization never been officially told that he has a heart attack but he just knows that he has had a heart attack the patient reports that he has seen his primary doctor but they do not believe that he has had anything and the patient reports that he was seen in the emergency department several other times but they do not find anything wrong with him patient reports that he has pain in the epigastric region reports that the pain is not improved by anything Related Data Home Medications Medication Instructions Recorded Confirmed doxylamine succinate 25 mg tablet 25 mg PO HS PRN Sleep 11/14/20 11/27/20 mirtazapine 15 mg tablet 15 mg PO HS 11/14/20 11/27/20 Allergies Allergy/AdvReac Type Severity Reaction Status Date / Time No Known Allergies Allergy Verified 04/15/23 14:27 Review of Systems Review of Systems: A 10 system review of systems was completed on the patient and is negative except for what is stated in the HPI. Nursing and ancillary documentation was reviewed. [facility] Past Medical History Medical History History of hepatitis C Treated in 2018 Surgical History Surgical History H/O inguinal hernia repair Open right inguinal hernia repair x 2 History of tonsillectomy Family History Family History Other No pertinent family history Social History Social History Smoking status: Former smoker Additional smoking assessment comments: Smoked for 30 years and quit over 10 years ago Alcohol intake: never Substance use: never Living arrangements: alone Additional living arrangements comments: Lives alone. Occupation/Education: retired Additional occupation/education comments: Living in [place], from [place], for the past 2 years working on an [employer]. 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 Gender identity (if verbalized by the patient): Male Spiritual care concerns: No Exam Narrative: GENERAL: Well-appearing, well-nourished, and in no acute distress. HEAD: Normocephalic, atraumatic. EYES: PERRLA and EOMI. ENT: Nares clear, no rhinorrhea or epistaxis. Mucous membranes moist. NECK: Supple. CHEST: Clear to auscultation. No respiratory distress. HEART: Regular rate and rhythm. No murmur heard. Normal peripheral pulses. ABDOMEN: Soft, tenderness palpation of the epigastric region, nondistended, normal active bowel sounds. EXTREMITIES: Normal range of motion. No edema. SKIN: Warm, dry, no rash. NEURO: No focal deficits. Alert and oriented x3. PSYCH: Normal mood and affect. Course Vital Signs Vital signs: Vital Signs Temperature 36.7 C 04/22/23 01:18 Pulse Rate 53 L 04/22/23 01:18 Respiratory Rate 14 04/22/23 01:18 Blood Pressure 128/78 04/22/23 01:18 Pulse Oximetry 100 04/22/23 01:18 Oxygen Delivery Room Air 04/22/23 01:18 Temperature 36.7 C 04/22/23 01:18 Pulse Rate 64 04/22/23 04:52 Respiratory Rate 12 04/22/23 04:52 Blood Pressure 126/82 04/22/23 04:52 Pulse Oximetry 98 04/22/23 04:52 Oxygen Delivery Room Air 04/22/23 01:18 Medical Decision Making [facility] Narrative Medical decision making narrative: differential diagnosis includes gastritis, pancreatitis, ACS, unstable angina, EKG was reviewed from earlier that showed no acute ischemic pruitt
[2023-04-22 02:40] LABS: Troponin I < 0.012 ng/mL (0.000-0.034)
[2023-04-22 03:30] VITALS: BP 121/74; PULSE 99; RESP 20; O2SAT 100
[2023-04-22 04:52] VITALS: BP 126/82; PULSE 64; RESP 12; O2SAT 98
[2023-04-22 05:10] VITALS: BP 130/87; PULSE 80; RESP 14; O2SAT 97
== END 2023-04-22 05:13 | disposition home or self-care (01) ==
PROVIDERS: Emergency Provider Emergency Medicine; PCP Student in an Organized Health Care Education/Training Program
DX: K29.70 Gastritis, unspecified, without bleeding (principal); Z86.19 Personal history of other infectious and parasitic diseases; Z87.891 Personal history of nicotine dependence
CPT/HCPCS: 36415; 74177; 84484; 99284; Q9967

== ENCOUNTER 2023-08-02 08:11 | Outpatient (CLI) | payer MEDICARE, SELFPAY ==
[2023-08-02 14:07] LABS: Basophils Percent Auto 0.9 % (0.2-1.2); Eosinophils Absolute Auto 0.1 K/mm3 (0-0.3); Eosinophils Percent Auto 2.3 % (0-4.4); Hematocrit 43.4 % (42.0-52.0); Hemoglobin 14.6 g/dL (14.0-18.0); Immature Granulocyte Absolute 0.01 K/mm3 (0.00-0.031); Immature Granulocyte Percent A 0.2 % (0-0.5); Lymphocytes Absolute Auto 1.43 K/mm3 (0.9-3.2); Lymphocytes Percent Auto 32.7 % (18.3-44.2); Mean Corpuscular HGB Conc 33.6 g/dl (32-36); Mean Corpuscular Hemoglobin 33.9 pg (26-34); Mean Corpuscular Volume 100.7 fl (80-100); Mean Platelet Volume 10.9 fl (7.4-10.4); Monocytes Absolute Auto 0.5 K/mm3 (0.1-0.6); Monocytes Percent Auto 12.4 % (2.6-8.5); Neutrophils Absolute Auto 2.3 K/mm3 (1.3-6.7); Neutrophils Percent Auto 51.5 % (45.5-73.1); Platelet Count Result 126 k/mm3 (150-375); Red Blood Count 4.31 M/mm3 (4.6-6.20); Red Cell Distribution Width 12.6 % (11.5-14.5); White Blood Count 4.4 K/mm3 (4.5-10.0)
[2023-08-02 15:01] LABS: Vitamin D 25 Hydroxy 56.7 ng/mL
[2023-08-02 15:58] LABS: Free T4 Free Thyroxine Reflex 0.91 ng/dL (0.78-2.19)
[2023-08-02 18:52] LABS: Total Triiodothyronine (T3) 1.15 NG/ML (0.97-1.69)
[2023-08-02 21:54] LABS: Alanine Aminotransferase 14 U/L (6-50); Albumin Level 4.2 g/dL (3.5-5.1); Alkaline Phosphatase 61 U/L (38-126); Anion Gap 5 mmol/L (8-16); Aspartate Amino Transferase 35 U/L (17-59); Bilirubin,Total 0.8 mg/dL (0.2-1.3); Blood Urea Nitrogen 24 mg/dL (9-20); Calcium 9.4 mg/dL (8.4-10.2); Carbon Dioxide 30 mmol/L (22-30); Chloride 100 mmol/L (98-107); Cholesterol 148 mg/dL (0-200); Estimated Glomerular Filt Rate > 60; Glucose 91 mg/dL (65-110); HDL Direct 55 mg/dL; Potassium 4.2 mmol/L (3.4-5.0); Sodium 135 mmol/L (137-145); Triglycerides 38 mg/dL (<150)
[2023-08-02 22:05] LABS: LDL Cholesterol Direct 81 mg/dL
[2023-08-02 22:23] LABS: Prostate Specific Antigen 0.9 ng/mL (< OR = 4.0)
== END 2023-08-02 08:12 | disposition home or self-care (01) ==
LOC: ANHGOSHLAB 08:14
PROVIDERS: PCP Family Medicine; Visit Provider Family Medicine
DX: E78.5 Hyperlipidemia, unspecified (principal); G47.00 Insomnia, unspecified; Z12.5 Encounter for screening for malignant neoplasm of prostate; E87.1 Hypo-osmolality and hyponatremia; E53.8 Deficiency of other specified B group vitamins; E55.9 Vitamin D deficiency, unspecified
CPT/HCPCS: 36415; 80053; 80061; 82306; 82607; 84153; 84439; 84443; 84480; 85025; G0103

== ENCOUNTER 2023-08-03 11:25 | Outpatient (CLI) | payer MEDICARE, SELFPAY ==
[2023-08-03 14:04] LABS: Basophils Percent Auto 0.8 % (0.2-1.2); Eosinophils Absolute Auto 0.1 K/mm3 (0-0.3); Eosinophils Percent Auto 1.3 % (0-4.4); Hematocrit 42.9 % (42.0-52.0); Hemoglobin 14.4 g/dL (14.0-18.0); Immature Granulocyte Absolute 0.01 K/mm3 (0.00-0.031); Immature Granulocyte Percent A 0.2 % (0-0.5); Lymphocytes Absolute Auto 1.03 K/mm3 (0.9-3.2); Lymphocytes Percent Auto 21.5 % (18.3-44.2); Mean Corpuscular HGB Conc 33.6 g/dl (32-36); Mean Corpuscular Hemoglobin 33.6 pg (26-34); Mean Platelet Volume 10.8 fl (7.4-10.4); Monocytes Absolute Auto 0.6 K/mm3 (0.1-0.6); Monocytes Percent Auto 11.9 % (2.6-8.5); Neutrophils Absolute Auto 3.1 K/mm3 (1.3-6.7); Neutrophils Percent Auto 64.3 % (45.5-73.1); Platelet Count Result 127 k/mm3 (150-375); Red Blood Count 4.29 M/mm3 (4.6-6.20); Red Cell Distribution Width 12.7 % (11.5-14.5); White Blood Count 4.8 K/mm3 (4.5-10.0)
== END 2023-08-03 11:26 | disposition home or self-care (01) ==
PROVIDERS: PCP Family Medicine; Visit Provider Family Medicine
DX: D69.6 Thrombocytopenia, unspecified (principal)
CPT/HCPCS: 36415; 85025

== ENCOUNTER 2023-08-03 11:38 | Outpatient (CLI) | payer MEDICARE, SELFPAY ==
--- NOTE | ~2023-08-03 | XR_ITS ---
XR hip RT 2V w AP pelvis 08/03/2023 12:02 Indication: Hip pain Procedure: AP pelvis and 2 views right hip Comparison: No prior studies for comparison. Findings: Pelvic rings are intact. 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 There is lower lumbar spondylosis. No fracture or traumatic malalignment. Impression: 1: Mild symmetric osteoarthritis of the hips. Reviewed, dictated and finalized at location L. Impression: 1: Mild symmetric osteoarthritis of the hips.
== END 2023-08-03 11:39 ==
PROVIDERS: PCP Family Medicine; Visit Provider Family Medicine
DX: M16.0 Bilateral primary osteoarthritis of hip (principal); M47.896 Other spondylosis, lumbar region
CPT/HCPCS: 73502

== ENCOUNTER 2023-08-11 09:48 | Outpatient (RCR) | payer MEDICARE, SELFPAY ==
--- NOTE | 2023-08-12 14:43 | PTOPEVAL1 ---
Assessment and note entered by Erma Fernandez, PT, DPT Evaluation Information Assessment Status Evaluation Diagnosis R hip pain Onset 6 months Subjective Information Pt states he is pain in his hip. He states his pain is increased with running, but he does not run. He states he can stand as long as he wants without an increase in pain. He states he needs to be cautions when rolling over in bed. He reports pain when bending over or squatting down. He states he is retired so he has no real limitations. He states he wants to be able to walk for 30 mins without an increase in pain. He states he has been trying his pain on his own with diet and temperature changes with benefit. He states he has limited foot from his diet to decrease his arthritis. Pt states Western medicine and pharmaceutical have ruined his health and he is doing better now that he has quit them. Reported Pain Level Pain Score 2: Self Report Assessment PT Clinical Summary Dorian presents to therapy today for his initial evaluation with a diagnosis of R hip pain. Hands on assessments were limited this day d/t pt refusal for ROM to end range, resistance testing, as well as refusing various other movement assessments. Pt educated on the benefits of physical therapy for muscle strength and ROM and on the benefits of preserving functional movements . Generalized HEP for hip OA was issued to the patient today. Answered any and all questions pt had. Pt states he is going to decide if therapy is something that is worth the risks for him. Educated pt on therapy limitations if he is reluctant to participate. He has not been scheduled at this time per his request. Plan of Care Interventions Gait Training,Hot Pack/Cold Pack,Manual Therapy, Neuro Re-education,Patient/Caregiver Educati, Therapeutic Activities,Therapeutic Exercise PT Services Indicated Yes Treatment Frequency and 1x/wk for 6 visits, if pt decides he wants to Duration continue These treatments will address the objective and functional deficits as defined above. The patient will be advanced safely and appropriately in order for the patient to progress towards his/her prior level of function. Additional exercises will be introduced and as well as a comprehensive home exercise program upon discharge, if needed, ?to ensure c
--- NOTE | 2023-11-02 13:30 | PTOPDC ---
Assessment and note entered by Yuki Hanna DPT Evaluation Information Assessment Status Discharge - Pt Not Present Diagnosis R hip pain Onset 6 months Subjective Information - Assessment PT Clinical Summary Patient has not attended therapy since evaluation 08/11/23. He will be discharged this date. Plan of Care PT Services Indicated No
== END 2023-11-02 15:19 | disposition home or self-care (01) ==
LOC: ANHGOSHPT 09:48
PROVIDERS: PCP Family Medicine; Visit Provider Family Medicine
DX: M25.551 Pain in right hip (principal)
CPT/HCPCS: 97110; 97161

== ENCOUNTER 2023-10-08 08:48 | Outpatient (CLI) | payer MEDICARE, SELFPAY ==
--- NOTE | ~2023-10-08 | US_ITS ---
EXAMINATION: US soft tissue abdomen DATE: 10/08/2023 09:12 INDICATION: Right groin lump. TECHNIQUE: Multiple grayscale and Doppler ultrasound images of the abdomen were obtained. COMPARISON: CT abdomen and pelvis 04/22/2023 FINDINGS: There is an umbilical hernia containing fat. There is no abnormal mass or lymphadenopathy i n the right inguinal region. IMPRESSION: 1. Umbilical hernia containing fat. 2. No abnormal mass or lymphadenopathy in the right inguinal region. Reviewed, dictated and finalized at location A.
== END 2023-10-08 08:49 ==
LOC: GOSHIMG 08:48
PROVIDERS: PCP Family Medicine; Visit Provider Student in an Organized Health Care Education/Training Program
DX: R10.31 Right lower quadrant pain (principal); K42.9 Umbilical hernia without obstruction or gangrene
CPT/HCPCS: 76705

== ENCOUNTER 2023-11-03 11:08 | Outpatient (CLI) | payer MEDICARE, SELFPAY ==
[2023-11-03 19:26] LABS: Basophils Percent Auto 0.8 % (0.2-1.2); Eosinophils Absolute Auto 0.1 K/mm3 (0-0.3); Eosinophils Percent Auto 1.2 % (0-4.4); Hematocrit 42.2 % (42.0-52.0); Hemoglobin 14.9 g/dL (14.0-18.0); Immature Granulocyte Absolute 0.01 K/mm3 (0.00-0.031); Immature Granulocyte Percent A 0.2 % (0-0.5); Lymphocytes Absolute Auto 1.19 K/mm3 (0.9-3.2); Lymphocytes Percent Auto 24.1 % (18.3-44.2); Mean Corpuscular HGB Conc 35.3 g/dl (32-36); Mean Corpuscular Hemoglobin 34.3 pg (26-34); Mean Platelet Volume 10.2 fl (7.4-10.4); Monocytes Absolute Auto 0.6 K/mm3 (0.1-0.6); Monocytes Percent Auto 12.6 % (2.6-8.5); Neutrophils Percent Auto 61.1 % (45.5-73.1); Platelet Count Result 136 k/mm3 (150-375); Red Blood Count 4.35 M/mm3 (4.6-6.20); Red Cell Distribution Width 12.4 % (11.5-14.5); White Blood Count 4.9 K/mm3 (4.5-10.0)
[2023-11-03 19:33] LABS: Alanine Aminotransferase 13 U/L (6-50); Albumin Level 4.6 g/dL (3.5-5.1); Alkaline Phosphatase 56 U/L (38-126); Anion Gap 6 mmol/L (4-12); Aspartate Amino Transferase 29 U/L (17-59); Bilirubin,Total 0.6 mg/dL (0.2-1.3); Blood Urea Nitrogen 27 mg/dL (9-20); Calcium 9.1 mg/dL (8.4-10.2); Carbon Dioxide 30 mmol/L (22-30); Chloride 97 mmol/L (98-107); Estimated Glomerular Filt Rate > 60; Glucose 73 mg/dL (65-110); Potassium 4.8 mmol/L (3.4-5.0); Sodium 133 mmol/L (137-145)
[2023-11-03 19:54] LABS: HIV 1/2 Ab P24 Ag Result Negative (Negative)
[2023-11-03 20:03] LABS: Hepatitis C Virus Antibody Reactive (Negative)
[2023-11-03 20:08] LABS: Erythrocyte Sedimentation Rate 5 mm/hr (0-20)
[2023-11-04 13:03] LABS: ANA Cascade Screen NEGATIVE (NEGATIVE)
[2023-11-05 14:08] LABS: Hepatitis C RNA, Quant PCR <15 NOT DETECTED IU/mL (NOT DETECTED)
== END 2023-11-03 11:09 | disposition home or self-care (01) ==
PROVIDERS: PCP Family Medicine; Visit Provider Nurse Practitioner
DX: R50.9 Fever, unspecified (principal); R53.81 Other malaise; R53.83 Other fatigue; G47.00 Insomnia, unspecified; Z11.4 Encounter for screening for human immunodeficiency virus [HIV]
CPT/HCPCS: 36415; 80053; 85025; 85652; 86038; 86225; 86235; 86364; 86703; 86803; 87522; G0432

== ENCOUNTER 2024-01-28 14:51 | Emergency (ER) | payer MEDICARE, SELFPAY ==
[2024-01-28 15:00] VITALS: BP 123/78; PULSE 60; RESP 20; TEMP 36.8; O2SAT 99
[2024-01-28 16:02] LABS: Basophils Percent Auto 0.5 % (0.2-1.2); Eosinophils Absolute Auto 0.1 K/mm3 (0-0.3); Eosinophils Percent Auto 1.7 % (0-4.4); Hematocrit 43.2 % (42.0-52.0); Hemoglobin 15.7 g/dL (14.0-18.0); Immature Granulocyte Absolute 0.03 K/mm3 (0.00-0.031); Immature Granulocyte Percent A 0.5 % (0-0.5); Lymphocytes Absolute Auto 1.59 K/mm3 (0.9-3.2); Lymphocytes Percent Auto 25.2 % (18.3-44.2); Mean Corpuscular HGB Conc 36.3 g/dl (32-36); Mean Corpuscular Hemoglobin 34.7 pg (26-34); Mean Corpuscular Volume 95.4 fl (80-100); Mean Platelet Volume 9.6 fl (7.4-10.4); Monocytes Absolute Auto 0.8 K/mm3 (0.1-0.6); Monocytes Percent Auto 11.9 % (2.6-8.5); Neutrophils Absolute Auto 3.8 K/mm3 (1.3-6.7); Neutrophils Percent Auto 60.2 % (45.5-73.1); Platelet Count Result 138 k/mm3 (150-375); Red Blood Count 4.53 M/mm3 (4.6-6.20); Red Cell Distribution Width 12.1 % (11.5-14.5); White Blood Count 6.3 K/mm3 (4.5-10.0)
[2024-01-28 16:11] LABS: Alanine Aminotransferase 18 U/L (6-50); Albumin Level 5.1 g/dL (3.5-5.1); Alkaline Phosphatase 62 U/L (38-126); Anion Gap 12 mmol/L (4-12); Aspartate Amino Transferase 33 U/L (17-59); Bilirubin,Total 0.6 mg/dL (0.2-1.3); Blood Urea Nitrogen 24 mg/dL (9-20); Calcium 9.6 mg/dL (8.4-10.2); Carbon Dioxide 24 mmol/L (22-30); Chloride 91 mmol/L (98-107); Estimated CRCL calculation 63 ml/min; Estimated Glomerular Filt Rate > 60; Glucose 114 mg/dL (65-110); Lipase 106 U/L (23-300); Potassium 4.7 mmol/L (3.4-5.0); Sodium 127 mmol/L (137-145)
[2024-01-28 17:38] VITALS: BP 130/83; PULSE 73; TEMP 37
--- NOTE | 2024-01-28 18:39 | ED.ABDPAIN ---
HPI - Abdominal Pain General Chief Complaint: Abdominal Pain Stated Complaint: abd pain, blood in stool Time Seen by Provider: 01/28/24 17:41 History of Present Illness HPI narrative: Patient is a 73-year-old male who presents to the emergency department this afternoon complaining of a suprapubic abdominal pain and rectal bleeding for the past 2 weeks. Patient states that his primary care physician is currently treating him for hemorrhoids and diverticulitis. Patient states that his PCP told him that his hemorrhoids are likely internal as patient cannot feel them and he states that yesterday he started to use the suppository that his PCP prescribed him for hemorrhoids and states that today was the 1st day that he did not notice any rectal bleeding. Patient states the bleeding is bright red in color, denies any dark tarry stools and denies any blood thinner use. Patient is also denying any urinary symptoms including dysuria or hematuria. No additional symptoms or concerns at this time. Related Data Home Medications Medication Instructions Recorded Confirmed Lactobacillus acidophilus 10 mg PO DAILY 06/01/23 01/25/24 (Acidophilus capsule) ascorbic acid (vitamin C) 1,000 mg 1 g PO DAILY 06/01/23 01/25/24 capsule magnesium 266 mg PO DAILY 06/01/23 01/25/24 multivitamin 1 tablet PO DAILY 06/01/23 01/25/24 saw palmetto 160 mg capsule 160 mg PO BID 06/01/23 01/25/24 vibegron 75 mg tablet (Gemtesa) 75 mg PO DAILY 01/25/24 01/25/24 Allergies Allergy/AdvReac Type Severity Reaction Status Date / Time No Known Allergies Allergy Verified 01/25/24 13:30 Review of Systems Review of Systems: All systems are reviewed and are negative unless stated otherwise in the HPI. [facility] Past Medical History Medical History Diverticulitis of colon with perforation (~11/2020) managed conservatively History of hepatitis C (~2017) Treated in 2018 History of Lyme disease (~1997) Insomnia Thrombocytopenia Surgical History Surgical History H/O inguinal hernia repair Open right inguinal hernia repair x 2 History of tonsillectomy Family History Family History Father Heart disease Alcoholism Other No pertinent family history Social History Social History Social History: caffeine-none Smoking status: Former smoker (< 5 pack years) Smoking end date: 05/10/02 Additional smoking assessment comments: Smoked for 30 years and quit over 10 years ago Alcohol intake: former Alcohol use details: 20 years ago Substance use: never Substance use type: does not use Do You Feel Safe in your Home?: Yes Lack of Transportation: No Lack of Food: Never True Current Housing: I Have Housing Concerned About Future Housing: No Difficulty Paying Gas/Electric Bills: No Difficulty Paying for Meds: No Currently Unemployed: No Education: Decline to Answer Difficulty w/ Childcare or Family Care: No Living arrangements: alone Additional living arrangements comments: Lives alone. 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 Gender identity (if verbalized by the patient): Male Spiritual care concerns: No Agree to blood products: Yes Exam Narrative: General: Alert, awake, afebrile, in no acute distress. HEENT: PERRL, no rhinorrhea, no post nasal drip, oropharynx clear. Cardiovascular: Regular rate and rhythm, no murmurs, rubs or gallops, no peripheral edema. Respiratory: Clear to auscultation bilaterally, no tachypnea, no wheezing, no rhonchi, no rubs, no respiratory distress. Abdomen: Soft, nontender, nondistended, no rebound, no guarding, no peritoneal si
[2024-01-28 18:56] LABS: Add Urine Microscopic? NO; Appearance Urine Clear (Clear); Bilirubin Urine Negative (Negative); Blood Urine Negative (Negative); Color Urine Yellow (Yellow); Glucose Urine UA Negative (Negative); Ketones Urine Negative (Negative); Leukocyte Esterase Ur Negative LEU/UL (Negative); Nitrate Urine Negative (Negative); Protein Urine Negative (Negative); Specific Grav Ur 1.016 (1.001-1.035); Urobilinogen Urine 0.2 mg/dL (<2.0)
[2024-01-28] MEDS: SODIUM CHLORIDE 0.9% IV 1,000 ML 150 ML IV CONT (19:15)
[2024-01-28 19:20] VITALS: BP 130/83; PULSE 73; TEMP 36.8; O2SAT 97
== END 2024-01-28 19:52 | disposition home or self-care (01) ==
PROVIDERS: Emergency Provider Emergency Medicine; PCP Family Medicine
DX: R10.30 Lower abdominal pain, unspecified (principal); K92.1 Melena; D69.6 Thrombocytopenia, unspecified; G47.00 Insomnia, unspecified; Z86.19 Personal history of other infectious and parasitic diseases; Z87.891 Personal history of nicotine dependence; Z79.899 Other long term (current) drug therapy
CPT/HCPCS: 36415; 80053; 81003; 83690; 85025; 96360; 99283; J7030

== ENCOUNTER 2024-02-14 10:56 | Outpatient (CLI) | payer MEDICARE, SELFPAY ==
--- NOTE | ~2024-02-14 | XR_ITS ---
XR foot LT min 3V Ordering provider: Dylan Bull Jr., DPM History: . 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 Comparison: None. FINDINGS: BONES: No acute fracture or dislocation. Minimal medial subluxation of the second metatarsophalangeal joint is not excluded. JOINT SPACES: Normal. No tarsal coalition. SOFT TISSUES: Normal. IMPRESSION: No acute osseous abnormality left foot. Possible medial subluxation of the second metatarsophalangeal joint. Reviewed, dictated and finalized at location A.
== END 2024-02-14 10:57 | disposition home or self-care (01) ==
PROVIDERS: PCP Family Medicine; Visit Provider Podiatrist Foot & Ankle Surgery
DX: M77.42 Metatarsalgia, left foot (principal)
CPT/HCPCS: 73630

== ENCOUNTER 2024-04-05 01:30 | Day surgery (SDC) | payer MEDICARE, SELFPAY ==
[2024-03-16 12:41] VITALS: BMI 22.1
[2024-03-30 13:25] VITALS: BMI 22.1
[2024-04-05 08:46] VITALS: BP 135/73; PULSE 56; RESP 20; TEMP 36.1; O2SAT 100; BMI 21.4
[2024-04-05] MEDS: LACTATED RINGERS 1,000 ML 150 ML IV CONT (09:05)
--- NOTE | 2024-04-05 09:16 | WPDANESEPPF ---
Anes - Initial Pre Proc Eval Procedure: Operation Date: 03/29/24 11:00 Proposed Procedures p Screening Colonoscopy - Simon Cedillo MD Operation Date: 04/05/24 10:00 Proposed Procedures p Colonoscopy - Simon Cedillo MD Operation Date: 06/16/24 11:30 Proposed Procedures p Screening Colonoscopy - Simon Cedillo MD Date/Time: 04/05/24 09:16 Surgeon: Simon Cedillo MD Pre Op Diagnosis: screening colon Patient Data Age: 73 Gender: M Height: 1.83 m Weight: 71.9 kg Last Vital Signs Temp 96.9 F L 04/05/24 08:46 Pulse 56 L 04/05/24 08:46 Resp 20 04/05/24 08:46 BP 135/73 04/05/24 08:46 Pulse Ox 100 04/05/24 08:46 O2 Del Method Room Air 04/05/24 08:46 Allergies Allergy/AdvReac Type Severity Reaction Status Date / Time No Known Allergies Allergy Verified 04/05/24 08:44 Home Medications Medication Instructions Recorded Confirmed Type ascorbic acid (vitamin C) 1,000 mg 1 g PO DAILY 06/01/23 04/05/24 History capsule magnesium 143 mg PO DAILY 06/01/23 04/05/24 History multivitamin 1 tablet PO DAILY 06/01/23 04/05/24 History saw palmetto 160 mg capsule 160 mg PO BID 06/01/23 04/05/24 History suvorexant 10 mg tablet (Belsomra) 10 mg PO QHS #90 tabs 01/12/24 04/05/24 Rx vibegron 75 mg tablet (Gemtesa) 75 mg PO DAILY 01/25/24 04/05/24 History Patient hx anesthesia problems: none Family hx anesthesia problems: none Results Review: All pre-operative results and documents have been reviewed as part of the pre-operative evaluation. [facility] Past Medical History Medical History (Updated 03/02/24 @ 11:56 by Eric Lakhani MD) Colon cancer screening Diverticulitis of colon with perforation (~11/2020) managed conservatively History of hepatitis C (~2017) Treated in 2018 History of Lyme disease (~1997) Insomnia Thrombocytopenia Surgical History Surgical History H/O inguinal hernia repair Open right inguinal hernia repair x 2 History of tonsillectomy Family History Family History Father Heart disease Alcoholism Other No pertinent family history Social History Social History Social History: caffeine-none Years smoked: 10 Smoking status: Former smoker Tobacco type: cigarettes Smoking end date: 05/10/02 Additional smoking assessment comments: Smoked for 30 years and quit over 10 years ago Alcohol intake: former Alcohol use details: 20 years ago Substance use: never Substance use type: does not use Do You Feel Safe in your Home?: Yes Lack of Transportation: No Lack of Food: Never True Current Housing: I Have Housing Concerned About Future Housing: No Difficulty Paying Gas/Electric Bills: No Difficulty Paying for Meds: No Currently Unemployed: No Education: Decline to Answer Difficulty w/ Childcare or Family Care: No Living arrangements: alone Additional living arrangements comments: Lives alone. Occupation/Education: retired Additional occupation/education comments: Living in [place], from [place], for the past 2 years working on an [employer]. 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 Gender identity (if verbalized by the patient): Male Spiritual care concerns: No Agree to blood products: Yes Anes - Eval Final PreProcedure Day of Procedure 04/05/24 09:16 Patient weight: normal Heart: regular rate and rhythm Lungs: clear to auscultation Airway: Mallampati scale class II Neurological: alert and oriented Last oral intake: >/= 8 hours ASA classification: II Emergent: no Anesthetic plan: proceed Anesthesia type and monitoring: general GIVS and standard monitoring Results Review: All pre-operative results and documents have been reviewed as part of the pre-operative evaluation. Informed Consent: The patient's anesthetic plan and its attendant risks and benefits were discussed with the patient/family/POA. Questions were solicited and answers provided to the satisfaction of the patient/family/POA.
--- NOTE | 2024-04-05 09:43 | HP_ITS ---
This report was moved to the correct visit on 04/10/2024. The original report was signed by Simon Cedillo MD on 04/05/24 0943. H&P: HPI History of Present Illness Date/Time: 04/05/24 09:42 Chief Complaint: Screening colonoscopy Narrative: This is the patient's first colonoscopy. There are no GI symptoms and there is no family history of colorectal cancer. Review of Systems Review of Systems: All systems reviewed & are unremarkable except as noted in HPI and below PMFSH Past Medical History Medical History (Updated 03/02/24 @ 11:56 by Eric Lakhani MD) Colon cancer screening Diverticulitis of colon with perforation (~11/2020) managed conservatively History of hepatitis C (~2017) Treated in 2018 History of Lyme disease (~1997) Insomnia Thrombocytopenia Surgical History Surgical History H/O inguinal hernia repair Open right inguinal hernia repair x 2 History of tonsillectomy Family History Family History Father Heart disease Alcoholism Other No pertinent family history Social History Social History Social History: caffeine-none Years smoked: 10 Smoking status: Former smoker Tobacco type: cigarettes Smoking end date: 05/10/02 Additional smoking assessment comments: Smoked for 30 years and quit over 10 years ago Alcohol intake: former Alcohol use details: 20 years ago Substance use: never Substance use type: does not use Do You Feel Safe in your Home?: Yes Lack of Transportation: No Lack of Food: Never True Current Housing: I Have Housing Concerned About Future Housing: No Difficulty Paying Gas/Electric Bills: No Difficulty Paying for Meds: No Currently Unemployed: No Education: Decline to Answer Difficulty w/ Childcare or Family Care: No Living arrangements: alone Additional living arrangements comments: Lives alone. Occupation/Education: retired Additional occupation/education comments: Living in [place], from [place], for the past 2 years working on an [employer]. 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 Gender identity (if verbalized by the patient): Male Spiritual care concerns: No Agree to blood products: Yes Meds Home Medications and Allergies Home Medications Medication Instructions Recorded Confirmed Type ascorbic acid (vitamin C) 1,000 mg 1 g PO DAILY 06/01/23 04/05/24 History capsule magnesium 143 mg PO DAILY 06/01/23 04/05/24 History multivitamin 1 tablet PO DAILY 06/01/23 04/05/24 History saw palmetto 160 mg capsule 160 mg PO BID 06/01/23 04/05/24 History suvorexant 10 mg tablet (Belsomra) 10 mg PO QHS #90 tabs 01/12/24 04/05/24 Rx vibegron 75 mg tablet (Gemtesa) 75 mg PO DAILY 01/25/24 04/05/24 History Allergies Allergy/AdvReac Type Severity Reaction Status Date / Time No Known Allergies Allergy Verified 04/05/24 08:44 Exam Const: General: cooperative and healthy appearing Resp: Effort & Inspection: normal respiratory effort and able to speak in complete sentences Auscultation: clear to auscultation bilaterally Cardio: Rate: regular rate Rhythm: regular rhythm GI: Inspection: normal to inspection GI Palp: No No hepatosplenomegaly present Auscultation: normal bowel sounds Rectal Exam: deferred Skin: General skin exam: normal color Psych: Appearance: grossly normal Mental Status: mental status grossly normal Assessment and Plan Assessment and plan (1) Colon cancer screening: Code(s): Z12.11 - Encounter for screening for malignant neoplasm of colon Status: Acute Assessment and Plan: The patient is deemed a good candidate for the procedure. Consent signed. Will proceed. This report may have been done utilizing a voice recognition system. Attempts have been made to correct errors. However, there may be uncorrected grammatical, spelling, and recognition errors present. Report Initialized date/time: Simon Cedillo MD 04/05/24942 Electronically signed by: Simon Cedillo MD 04/05/24 0943 [facility]
--- NOTE | 2024-04-05 09:43 | HP_ITS ---
H&P: HPI History of Present Illness Date/Time: 04/05/24 09:42 Chief Complaint: Screening colonoscopy Narrative: This is the patient's first colonoscopy. There are no GI symptoms and there is no family history of colorectal cancer. Review of Systems Review of Systems: All systems reviewed & are unremarkable except as noted in HPI and below PMFSH Past Medical History Medical History (Updated 03/02/24 @ 11:56 by Eric Lakhani MD) Colon cancer screening Diverticulitis of colon with perforation (~11/2020) managed conservatively History of hepatitis C (~2017) Treated in 2018 History of Lyme disease (~1997) Insomnia Thrombocytopenia Surgical History Surgical History H/O inguinal hernia repair Open right inguinal hernia repair x 2 History of tonsillectomy Family History Family History Father Heart disease Alcoholism Other No pertinent family history Social History Social History Social History: caffeine-none Years smoked: 10 Smoking status: Former smoker Tobacco type: cigarettes Smoking end date: 05/10/02 Additional smoking assessment comments: Smoked for 30 years and quit over 10 years ago Alcohol intake: former Alcohol use details: 20 years ago Substance use: never Substance use type: does not use Do You Feel Safe in your Home?: Yes Lack of Transportation: No Lack of Food: Never True Current Housing: I Have Housing Concerned About Future Housing: No Difficulty Paying Gas/Electric Bills: No Difficulty Paying for Meds: No Currently Unemployed: No Education: Decline to Answer Difficulty w/ Childcare or Family Care: No Living arrangements: alone Additional living arrangements comments: Lives alone. Occupation/Education: retired Additional occupation/education comments: Living in [place], from [place], for the past 2 years working on an [employer]. 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 Gender identity (if verbalized by the patient): Male Spiritual care concerns: No Agree to blood products: Yes Meds Home Medications and Allergies Home Medications Medication Instructions Recorded Confirmed Type ascorbic acid (vitamin C) 1,000 mg 1 g PO DAILY 06/01/23 04/05/24 History capsule magnesium 143 mg PO DAILY 06/01/23 04/05/24 History multivitamin 1 tablet PO DAILY 06/01/23 04/05/24 History saw palmetto 160 mg capsule 160 mg PO BID 06/01/23 04/05/24 History suvorexant 10 mg tablet (Belsomra) 10 mg PO QHS #90 tabs 01/12/24 04/05/24 Rx vibegron 75 mg tablet (Gemtesa) 75 mg PO DAILY 01/25/24 04/05/24 History Allergies Allergy/AdvReac Type Severity Reaction Status Date / Time No Known Allergies Allergy Verified 04/05/24 08:44 Exam Const: General: cooperative and healthy appearing Resp: Effort & Inspection: normal respiratory effort and able to speak in complete sentences Auscultation: clear to auscultation bilaterally Cardio: Rate: regular rate Rhythm: regular rhythm GI: Inspection: normal to inspection GI Palp: No No hepatosplenomegaly present Auscultation: normal bowel sounds Rectal Exam: deferred Skin: General skin exam: normal color Psych: Appearance: grossly normal Mental Status: mental status grossly normal Assessment and Plan Assessment and plan (1) Colon cancer screening: Code(s): Z12.11 - Encounter for screening for malignant neoplasm of colon Status: Acute Assessment and Plan: The patient is deemed a good candidate for the procedure. Consent signed. Will proceed. This report may have been done utilizing a voice recognition system. Attempts have been made to correct errors. However, there may be uncorrected grammatical, spelling, and recognition errors present. Report Initialized date/time: Simon Cedillo MD 04/05/24942 Electronically signed by: Simon Cedillo MD 04/05/24 0943 [facility]
[2024-04-05 10:08] VITALS: BP 101/65; PULSE 42; RESP 13; O2SAT 99
[2024-04-05 10:18] VITALS: BP 105/68; PULSE 41; RESP 17; O2SAT 99
[2024-04-05 10:28] VITALS: BP 118/74; PULSE 44; RESP 13; O2SAT 100
== END 2024-04-05 11:00 | disposition home or self-care (01) ==
PROVIDERS: PCP Family Medicine; Referring Provider Student in an Organized Health Care Education/Training Program; Visit Provider Internal Medicine Gastroenterology
PROC: 0DJD8ZZ Inspection of Lower Intestinal Tract, Via Natural or Artificial Opening Endoscopic (ICD-10-PCS; CPT 45378; principal; 2024-04-05 10:00)
DX: Z12.11 Encounter for screening for malignant neoplasm of colon (principal); K57.30 Diverticulosis of large intestine without perforation or abscess without bleeding; K64.2 Third degree hemorrhoids; Z87.891 Personal history of nicotine dependence; Z86.19 Personal history of other infectious and parasitic diseases
CPT/HCPCS: G0121; J2704; J7120

== ENCOUNTER 2024-05-05 09:09 | Outpatient (CLI) | payer MEDICARE, SELFPAY | END 2024-05-05 09:10 | disposition home or self-care (01) | PROVIDERS: Visit Provider Surgery | DX: K42.9 Umbilical hernia without obstruction or gangrene (principal) | CPT/HCPCS: 36415; 86850; 86900; 86901 ==

== ENCOUNTER 2024-05-17 01:27 | Day surgery (SDC) | payer MEDICARE, SELFPAY ==
[2024-04-28 14:48] VITALS: BMI 23.0
--- NOTE | 2024-04-28 15:24 | PC.NURSE ---
Report to the Outpatient Waiting Room, entrance under the green pavilion located off [facility], at time ___7:00AM____ on date ___05/17/24____. Planned Procedure Time: ___9:00AM .? Time changes happen often and if your time is changed the preop area will call you the afternoon before. - You and your visitor will be asked to self-screen and do not enter if you have any COVID symptoms. Please call surgeon if you need to reschedule. - A mask is optional within the hospital at this time. Patients may have clear liquids (water, carbonated beverages, clear teas, apple juice) until 3 hours prior to surgery (6:00AM) with a maximum of 20 ounces. - No food from midnight until time of surgery and no smoking. This includes no chewing gum, candy or mints. - Infants may have breast milk until 4 hours before surgery, infant formula 6 hours prior to surgery. - Children will be allowed to drink immediately following surgery.? If applicable, please bring a bottle or sippy cup to assist with drinking. Juice, water, soda, and popsicles are readily available.? For infants on formula, please bring formula the day of surgery.? Pacifiers are allowed. Take only the following medications with a SIP of water on the morning of surgery: NONE DO NOT STOP ANY OF YOUR OTHER PRESCRIPTION MEDICATIONS PRIOR TO SURGERY EXCEPT THE FOLLOWING Medications to discontinue per physician HOLD ALL VITAMINS/SUPPLEMENTS 3 DAYS PRIOR TO SURGERY PER ANESTHESIA Date to take last dose 05/13/24 Please no make-up, nail japanese, hairspray, perfume, deodorant, or body powder the day of surgery.? No jewelry (including any body piercings) or valuables the day of surgery, leave them at home.? Please take a shower or bath the night before, or the morning of, surgery with an antibacterial soap.? Wear comfortable, loose fitting clothing.? Children are encouraged to wear pajamas. - Jewelry must be removed prior to entering the operating room.? Rings and piercings that are not removed may be cut off. - The hospital will not accept responsibility for valuables.? - Please leave all valuables, including medications, at home the day of surgery. If you are going home after surgery, a licensed owner operator tanker truck driver must drive you home.? - NO public transportation without another adult if you receive anesthesia. - We recommend that an adult stay with you for 24 hours following discharge. - We also recommend that you do not drive, make important decision, drink alcoholic beverages, or take any drugs that were not prescribed by your health care provider for at least 24 hours after your discharge time. Follow any additional instructions given to you from your surgeon. Telephone instructions given to ___PATIENT and asked if any additional questions and then verbalized understanding. Patient advised to call surgeon office or pre surgery nurse liaison [phone] if any additional questions.
[2024-05-17] VITALS (9 sets, daily range): BP systolic 96–139; BP diastolic 60–81; PULSE 47–62; RESP 12–20; TEMP 36.3–36.6; O2SAT 97–100; BMI 21.6
[2024-05-17] MEDS: LACTATED RINGERS 1,000 ML 30 ML IV CONT ×2 (07:55→10:56)
--- NOTE | 2024-05-17 08:36 | P.HP_ITS ---
H&P: HPI History of Present Illness Date/Time: 05/17/24 08:36 Chief Complaint: Umbilical hernia Narrative: This is a 73 yo man who presents for umbilical hernia repair. He reports no changes with the umbilical hernia since last seen in office. He does want me to look at the left and right inguinal region during the surgery to see if there are any other abnormalities. Review of Systems Review of Systems: All systems reviewed & are unremarkable except as noted in HPI and below Constitutional: Constitutional: Denies chills, Denies fever(s), Denies headache(s) and Denies weight loss Eyes: Eyes: Denies change in vision ENT: Denies dizziness, Denies headache(s), Denies neck mass and Denies throat swelling Cardiovascular: Cardiovascular: Denies chest pain, Denies lightheadedness and Denies dyspnea Respiratory: Respiratory: Denies cough, Denies dyspnea and Denies wheezing Gastrointestinal: Gastrointestinal: Denies abdominal pain, Denies change in bowel habits, Denies nausea and Denies vomiting Genitourinary: Genitourinary: Denies hematuria and Denies dysuria Musculoskeletal: Musculoskeletal: Reports as per HPI Integumentary/Breasts: Skin/Breast: Reports as per HPI Neurologic: Denies dizziness and Denies headache(s) Allergic/Immunologic: Allergic/Immunologic: Denies throat swelling and Denies wheezing PMFSH Past Medical History Medical History Colon cancer screening Thrombocytopenia Insomnia History of Lyme disease (~1997) Diverticulitis of colon with perforation (~11/2020) managed conservatively History of hepatitis C (~2017) Treated in 2018 Surgical History Surgical History History of tonsillectomy H/O inguinal hernia repair Open right inguinal hernia repair x 2 Family History Family History Father Heart disease Alcoholism Other No pertinent family history Social History Social History Social History: caffeine-none Smoking packs per day: 0.25 Smoking cigarettes per day: 5.0 Years smoked: 30 Smoking pack-years: 7.50 Smoking status: Former smoker Tobacco type: cigarettes Smoking end date: 11/07/01 Additional smoking assessment comments: Smoked for 30 years and quit over 10 years ago Alcohol intake: former Alcohol use details: 20 years ago Substance use: never Substance use type: does not use Do You Feel Safe in your Home?: Yes Lack of Transportation: No Lack of Food: Never True Current Housing: I Have Housing Concerned About Future Housing: No Difficulty Paying Gas/Electric Bills: No Difficulty Paying for Meds: No Currently Unemployed: No Education: Decline to Answer Difficulty w/ Childcare or Family Care: No Living arrangements: alone Additional living arrangements comments: Lives alone. Occupation/Education: retired Additional occupation/education comments: Living in [place], from [place], for the past 2 years working on an [employer]. 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 Gender identity (if verbalized by the patient): Male Spiritual care concerns: No Agree to blood products: Yes Meds Home Medications and Allergies Home Medications ?Medication ?Instructions ?Recorded ?Confirmed ?Type ascorbic acid (vitamin C) 1,000 mg 1 g PO DAILY 06/01/23 04/28/24 History capsule multivitamin 1 tablet PO DAILY 06/01/23 04/28/24 History saw palmetto 160 mg capsule 160 mg PO BID 06/01/23 04/28/24 History vibegron 75 mg tablet (Gemtesa) 75 mg PO DAILY 01/25/24 04/28/24 History lactobacillus combination no.4 3 3,000 mmu cells PO DAILY 04/28/24 04/28/24 History billion cell capsule (Probiotic) magnesium 250 mg tablet 250 mg PO DAILY 04/28/24 04/28/24 History testosterone 100 mg/mL 100 mg IM .X2/WEEK 04/28/24 04/28/24 History intramuscular suspension hydrocortisone acetate 25 mg 25 mg RECTAL QHS #12 ea 05/08/24 Rx rectal suppository (Anusol-HC) suvorexant 10 mg tablet (Belsomra) 10 mg PO QHS #90 tabs 05/16/24 Rx Allergies Allergy/AdvReac Type Severity Reaction Status Date / Time No Known Allergies Allergy Verified 04/28/24 14:43 Exam Const: General: no acute distress and alert Orientation/consciousness: patient oriented x3 HENMT: Head: normocephalic and atraumatic Ears: hearing grossly normal bilaterally Face/Nose/Sinus: Normal nares present Mouth: Yes Normal oral and palatal mucosa present Eyes: Periorbital: periorbital findings normal Sclera: sclerae normal EOM: EOMs intact bilaterally Neck: Neck: normal visual inspection, no lymphadenopathy and trachea midline Chest: Chest palpation & inspection: normal inspection of the chest Resp: Effort & Inspection: normal respiratory effort Auscultation: clear to auscultation bilaterally Cardio: Jugular venous distension: no JVD Rate: regular rate Rhythm: re gular rhythm Heart sounds: S1 normal heart sound present and S2 normal heart sound present Peripheral pulses: Peripheral pulses 2+ throughout GI: Inspection: normal to inspection GI Palp: Yes Soft to palpation, No Tenderness to palpation present (GI), No Guarding due to palpation present (GI), Yes Hernia present umbilical < 3 cm and No Rebound tenderness present Percussion: Yes normal to percussion Auscultation: normal bowel sounds : General: Yes no CVA tenderness Back/Spine/Pelvis: Back: no CVA tenderness Neuro: General: patient oriented x3, no focal motor deficits and CN's II-XI intact bilaterally Cognition (Neuro): normal cognition Speech: normal speech Motor exam (neuro): 5/5 motor strength present throughout Extrem: General: capillary refill normal and no clubbing, cyanosis or edema Assessment and Plan Assessment and plan (1) Umbilical hernia: Qualifiers: Obstruction and gangrene presence: without obstruction or gangrene Qualified Code(s): K42.9 - Umbilical hernia without obstruction or gangrene Code(s): K42.9 - Umbilical hernia without obstruction or gangrene Status: Acute Assessment and Plan: I have recommended laparoscopic umbilical hernia repair with mesh, da Yolanda assisted. I have discussed the procedure, risks, benefits, and alternatives with the patient. All questions answered. No changes since last seen in office. (2) Right groin pain: Code(s): R10.31 - Right lower quadrant pain Status: Acute
--- NOTE | 2024-05-17 08:36 | P.PNAN_ITS ---
Anes - Initial Pre Proc Eval Procedure: Operation Date: 05/17/24 09:00 Proposed Procedures p Laparoscopic Umbilical Hernia Repair with Mesh, Davinci Assisted - Jesus Marques DO Date/Time: 05/17/24 08:36 Surgeon: Jesus Marques DO Pre Op Diagnosis: umbilical hernia Patient Data Age: 73 Gender: M Height: 1.83 m Weight: 77 kg Allergies Allergy/AdvReac Type Severity Reaction Status Date / Time No Known Allergies Allergy Verified 04/28/24 14:43 Home Medications ?Medication ?Instructions ?Recorded ?Confirmed ?Type ascorbic acid (vitamin C) 1,000 mg 1 g PO DAILY 06/01/23 04/28/24 History capsule multivitamin 1 tablet PO DAILY 06/01/23 04/28/24 History saw palmetto 160 mg capsule 160 mg PO BID 06/01/23 04/28/24 History vibegron 75 mg tablet (Gemtesa) 75 mg PO DAILY 01/25/24 04/28/24 History lactobacillus combination no.4 3 3,000 mmu cells PO DAILY 04/28/24 04/28/24 History billion cell capsule (Probiotic) magnesium 250 mg tablet 250 mg PO DAILY 04/28/24 04/28/24 History testosterone 100 mg/mL 100 mg IM .X2/WEEK 04/28/24 04/28/24 History intramuscular suspension hydrocortisone acetate 25 mg 25 mg RECTAL QHS #12 ea 05/08/24 Rx rectal suppository (Anusol-HC) suvorexant 10 mg tablet (Belsomra) 10 mg PO QHS #90 tabs 05/16/24 Rx Patient hx anesthesia problems: none Family hx anesthesia problems: none Results Review: All pre-operative results and documents have been reviewed as part of the pre- operative evaluation. [facility] Past Medical History Medical History Colon cancer screening Thrombocytopenia Insomnia History of Lyme disease (~1997) Diverticulitis of colon with perforation (~11/2020) managed conservatively History of hepatitis C (~2017) Treated in 2018 Surgical History Surgical History History of tonsillectomy H/O inguinal hernia repair Open right inguinal hernia repair x 2 Family History Family History Father Heart disease Alcoholism Other No pertinent family history Social History Social History Social History: caffeine-none Smoking packs per day: 0.25 Smoking cigarettes per day: 5.0 Years smoked: 30 Smoking pack-years: 7.50 Smoking status: Former smoker Tobacco type: cigarettes Smoking end date: 11/07/01 Additional smoking assessment comments: Smoked for 30 years and quit over 10 years ago Alcohol intake: former Alcohol use details: 20 years ago Substance use: never Substance use type: does not use Do You Feel Safe in your Home?: Yes Lack of Transportation: No Lack of Food: Never True Current Housing: I Have Housing Concerned About Future Housing: No Difficulty Paying Gas/Electric Bills: No Difficulty Paying for Meds: No Currently Unemployed: No Education: Decline to Answer Difficulty w/ Childcare or Family Care: No Living arrangements: alone Additional living arrangements comments: Lives alone. Occupation/Education: retired Additional occupation/education comments: Living in [place], from [place], for the past 2 years working on an [employer]. 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 Gender identity (if verbalized by the patient): Male Spiritual care concerns: No Agree to blood products: Yes Anes - Eval Final PreProcedure Day of Procedure 05/17/24 08:36 Patient weight: normal Heart: regular rate and rhythm Lungs: clear to auscultation Airway: Mallampati scale class II Neurological: alert and oriented Last oral intake: >/= 8 hours ASA classification: II Emergent: no Anesthetic plan: proceed Anesthesia type and monitoring: general ETT and standard monitoring Results Review: All pre-operative results and documents have been reviewed as part of the pre- operative evaluation. Informed Consent: The patient's anesthetic plan and its attendant risks and benefits were discussed with the patient/family/POA. Questions were solicited and answers provided to the satisfaction of the patient/family/POA.
--- NOTE | 2024-05-17 08:36 | WPDHPUPDATE1 ---
History and Physical Update Update Date/Time: 05/17/24 08:36 History and Physical has been reviewed, including an updated exam of the patient. There are NO changes in the patient's condition. Risks, benefits, and alternatives have been discussed and questions answered. Patient agrees to proceed with procedure.
[2024-05-17] MEDS: ceFAZolin 2 GM/D5W 50 ML 2 GM/50 ML BAG IVPB (09:00)
[2024-05-17] MEDS: BUPIVACAINE/EPINEPHRINE 0.5% 10 ML VIAL 30 ML INFILTRATE (09:32)
--- NOTE | 2024-05-17 10:56 | P.OP_ITS ---
Procedure Note - Detailed Date of Procedure 05/17/24 Pre-op Diagnosis umbilical hernia Post-op Diagnosis Same (2 cm umbilical hernia) Procedure Performed Laparoscopic 2 cm umbilical hernia repair with mesh, da Yolanda assisted Surgeon Jesus Marques DO Anesthesia General and Local (0.5% bupivacaine with epinephrine) Indications This is a 73-year-old man who presented with a periumbilical bulge and discomfort. He was noticing discomfort with activity for about the last 6-8 months. He had an ultrasound performed which showed evidence of an umbilical hernia. He has a history of right inguinal hernia repair and ultrasound showed no evidence of recurrent right inguinal hernia. Discussions were made with the patient about treatment options and decision was made to proceed with robotic assisted laparoscopic umbilical hernia repair with mesh. The patient was having right groin pain and occasional left groin pain and it was discussed that we could inspect that area laparoscopically at the time of umbilical hernia repair. Findings Robotic assisted laparoscopic 2 cm umbilical hernia repair with mesh was performed. Upon inspecting the abdomen laparoscopically, he was found to have a 2 cm umbilical hernia containing preperitoneal fat. Inspecting the inguinal region, there did not appear to be evidence of a recurrent right inguinal hernia or a left inguinal hernia. A robotic transabdominal preperitoneal approach was utilized for the hernia repair. The patient did have 2 periumbilical vessels that were risk of causing bleeding with just using cautery alone, therefore I used a robotic clip juvenile detention officer to place 2 clips on these vessels for hemostasis. No other intra-abdominal abnormalities were noted. No specimens were obtained for pathology. Description of Procedure Procedure as well as risks, benefits, and alternatives were discussed with the patient. Written consent was obtained and placed in chart prior to procedure. Patient was brought back to surgical suite. He was placed supine on operating table. Time-out was done to confirm patient and procedure. He was then intubated by the anesthesia department. A bump was placed under his left hip, and the bed was flexed slightly to extend the space between his costal margin and iliac crest. His abdomen was prepped and draped in sterile fashion using chlorhexidine prep. A 5 millimeter incision was made in the left upper quadrant, and a 5 millimeter Optiview trocar was advanced through the abdominal layers under direct visualization. Once inside the abdominal cavity, carbon dioxide insufflation was used to create a pneumoperitoneum. His abdomen was inspected. An 8 millimeter incision was made in the left lower quadrant, and an 8 millimeter robotic trocar was placed under direct visualization. Another 8 millimeter incision was made in the left lateral abdomen, and an 8 millimeter robotic trocar was placed under direct visualization. 0.5% bupivacaine with epinephrine was infiltrated around each port site. The 5 millimeter port was removed, and an 8 mm robotic trocar was placed under direct visualization. The robotic arms were brought up to the patient's bedside and secured to the ports. The camera and instruments were inserted, and I then moved over to the robotic console and took control of the camera and instruments. After careful thorough inspection of the abdominal cavity, I began my dissection at the hernia. A preperitoneal plane was entered in the left upper quadrant and this was developed caudally to the left lower quadrant using scissors with electrocautery. I then continued this dissection medially and reduced the hernia sac. There were 2 small periumbilical vessels going up from the peritoneum to the periumbilical abdominal wall. These vessels were ligated using a robotic clip juvenile detention officer. The preperitoneal plane was then continued to the right lateral abdomen far enough to allow for mesh placement and the hernia sac was completely reduced. I then measured the hernia size. The hernia measured 2 cm. The fascia was closed using an 0-Stratafix running suture in a vertical fashion. A 10 cm x 10 cm Bard soft mesh was then placed within the preperitoneal plane. This was oriented vertically with the mesh centered on the hernia defect. The mesh was then secured to the abdominal wall at the center and 4 corners using 3-0 Vicryl simple interrupted sutures. The peritoneum was then closed over the mesh using a 3 0 V lock running absorbable suture. The repair was inspected, and one final inspection was made around the abdominal cavity. The robotic instruments were then removed, and the robotic arms were disengaged from the trocars. The ports were then removed under direct visualization, the camera was removed, and the pneumoperitoneum was released. The skin of the incisions was then approximated using 4-0 Monocryl subcuticular suture. Exofin glue was then applied on top. The patient was then awakened from anesthesia, extubated, and transferred to recovery. Implants Bard soft mesh 10 cm x 10 cm Estimated Blood Loss 5 Complications No immediate complications Condition Stable Disposition Same day [facility] - Charge Forward: Surgery Billing
[2024-05-17] MEDS: fentaNYL CITRATE INJ (*CRX) 100 MCG/2 ML VIAL 25 MCG IV PUSH ×6 (11:17→11:36)
[2024-05-17] MEDS: oxyCODONE HCL (*CRX) 5 MG TAB IR PO (12:06)
--- NOTE | 2024-05-17 12:59 | SUR.PHASEII ---
1250: patient dressed and ready for dc. waiting on ride service.
== END 2024-05-17 13:20 | disposition home or self-care (01) ==
PROVIDERS: Visit Provider Surgery
PROC: (CPT 49591; principal; 2024-05-17 09:00)
DX: K42.9 Umbilical hernia without obstruction or gangrene (principal); D69.6 Thrombocytopenia, unspecified; G47.00 Insomnia, unspecified; A69.20 Lyme disease, unspecified; Z98.890 Other specified postprocedural states; Z87.891 Personal history of nicotine dependence; Z87.19 Personal history of other diseases of the digestive system; Z82.49 Family history of ischemic heart disease and other diseases of the circulatory system
CPT/HCPCS: 49591; S2900; A9270; C1781; J0330; J0690; J1100; J2003; J2250; J2405; J2704; J3010; J7030; J7120

== ENCOUNTER 2024-07-28 08:37 | Outpatient (CLI) | payer MEDICARE, SELFPAY ==
[2024-07-28 13:40] LABS: Basophils Percent Auto 0.9 % (0.2-1.2); Eosinophils Absolute Auto 0.1 K/mm3 (0-0.3); Hematocrit 44.4 % (42.0-52.0); Hemoglobin 15.2 g/dL (14.0-18.0); Immature Granulocyte Absolute 0.01 K/mm3 (0.00-0.031); Immature Granulocyte Percent A 0.2 % (0-0.5); Lymphocytes Absolute Auto 1.39 K/mm3 (0.9-3.2); Lymphocytes Percent Auto 32.3 % (18.3-44.2); Mean Corpuscular HGB Conc 34.2 g/dl (32-36); Mean Corpuscular Hemoglobin 34.3 pg (26-34); Mean Corpuscular Volume 100.2 fl (80-100); Mean Platelet Volume 10.5 fl (7.4-10.4); Monocytes Absolute Auto 0.6 K/mm3 (0.1-0.6); Monocytes Percent Auto 13.7 % (2.6-8.5); Neutrophils Absolute Auto 2.1 K/mm3 (1.3-6.7); Neutrophils Percent Auto 49.9 % (45.5-73.1); Platelet Count Result 139 k/mm3 (150-375); Red Blood Count 4.43 M/mm3 (4.6-6.20); Red Cell Distribution Width 13.2 % (11.5-14.5); White Blood Count 4.3 K/mm3 (4.5-10.0)
[2024-07-28 14:06] LABS: Alanine Aminotransferase 20 U/L (6-50); Albumin Level 4.4 g/dL (3.5-5.1); Alkaline Phosphatase 74 U/L (38-126); Anion Gap 5 mmol/L (4-12); Aspartate Amino Transferase 43 U/L (17-59); Bilirubin,Total 0.8 mg/dL (0.2-1.3); Blood Urea Nitrogen 24 mg/dL (9-20); Calcium 9.2 mg/dL (8.4-10.2); Carbon Dioxide 30 mmol/L (22-30); Chloride 101 mmol/L (98-107); Cholesterol 134 mg/dL (0-200); Estimated Glomerular Filt Rate > 60; Glucose 79 mg/dL (65-110); HDL Direct 55 mg/dL; Potassium 4.3 mmol/L (3.4-5.0); Sodium 136 mmol/L (137-145); Triglycerides 40 mg/dL (<150)
[2024-07-28 14:17] LABS: LDL Cholesterol Direct 58 mg/dL
[2024-07-28 14:35] LABS: Vitamin D 25 Hydroxy 40.8 ng/mL
[2024-07-28 14:36] LABS: Prostate Specific Antigen 0.7 ng/mL (< OR = 4.0)
[2024-07-28 15:36] LABS: Free T4 Free Thyroxine Reflex 0.91 ng/dL (0.78-2.19)
[2024-07-28 16:18] LABS: Total Triiodothyronine (T3) 1.17 NG/ML (0.97-1.69)
== END 2024-07-28 08:38 | disposition home or self-care (01) ==
LOC: ANHGOSHLAB 08:38
PROVIDERS: PCP Family Medicine; Visit Provider Family Medicine
DX: D69.6 Thrombocytopenia, unspecified (principal); Z00.00 Encounter for general adult medical examination without abnormal findings; R73.9 Hyperglycemia, unspecified; E55.9 Vitamin D deficiency, unspecified; Z12.5 Encounter for screening for malignant neoplasm of prostate; Z79.899 Other long term (current) drug therapy; Z13.220 Encounter for screening for lipoid disorders; G47.00 Insomnia, unspecified
CPT/HCPCS: 36415; 80053; 80061; 82306; 83036; 84153; 84439; 84443; 84480; 85025; G0103

== ENCOUNTER 2024-08-18 09:43 | Outpatient (CLI) | payer MEDICARE, SELFPAY ==
--- NOTE | ~2024-08-18 | MR_ITS ---
EXAMINATION: MR foot LT wo con DATE: 08/18/2024 10:48 INDICATION: Left foot pain TECHNIQUE: Magnetic resonance imaging (MRI) of the left fore/mid foot was performed without intraveno us contrast. Sequences included sagittal T1-weighted FSE, sagittal fluid sensitive FSE STIR, coronal PD-weighted FS FSE, coronal T1-weighted FSE, axial PD-weighted FS FSE, and axial PD-weighted FSE. COMPARISON: Left foot radiographs dated 02/14/2024 FINDINGS: There is mild lateral angulation at the first interphalangeal joint resulting from either development al hypoplasia or old fracture of the lateral condyle of the proximal phalanx. There are dorsal and pl janet sided tarsal bones occupying the normal location of the medial cuneiform which is likely develo pmental. 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 Bon e alignment is otherwise normal. Mild osteoarthritis at the naviculocuneiform articulation with mild subarticular cystlike changes suggesting regions of high-grade chondromalacia. Moderate osteoarthriti s at the articulation of the first metatarsal at the first metatarsal sesamoids and mild osteoarthrit is at the first metatarsophalangeal joint proper. Moderate osteoarthritis with subarticular edema-lik e signal change at the articulation of the base of the first metatarsal and the dorsal sided medial c uneiform. Additional mild polyarticular osteoarthritis at the remaining tarsometatarsal and multiple interphalangeal joints with mild subarticular edema-like signal change at the first tarsometatarsal j oint and additional mild subarticular cystlike changes at the base of the second and third proximal p halanges. No fracture, stress reaction or pathologic marrow replacing process. Small joint effusion a t the first metatarsophalangeal joint. The Lisfranc ligament complex as well as the collateral ligame nt complex at the metatarsal phalangeal and interphalangeal joints are normal. The visualized portion of the flexor and extensor tendons are normal. IMPRESSION: 1. 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 2. 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 Reviewed, dictated and finalized at location B. IMPRESSION: 1. 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 2. 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
== END 2024-08-18 09:44 | disposition home or self-care (01) ==
LOC: GOSHIMG 09:43
PROVIDERS: PCP Family Medicine
DX: M77.42 Metatarsalgia, left foot (principal); M20.42 Other hammer toe(s) (acquired), left foot; S93.332A Other subluxation of left foot, initial encounter; X58.XXXA Exposure to other specified factors, initial encounter; M19.072 Primary osteoarthritis, left ankle and foot
CPT/HCPCS: 73718

== ENCOUNTER 2024-10-23 11:35 | Emergency (ER) | payer MEDICARE, SELFPAY ==
--- NOTE | 2024-10-23 11:38 | ED.URI ---
HPI - URI/Sore Throat General Chief Complaint: Upper Respiratory Infection Stated Complaint: FEVER/NO ENERGY/SWOLLEN GLANDS/LUNGS BURNING Time Seen by Provider: 10/23/24 11:44 Source: patient, RN notes reviewed and old records reviewed Mode of arrival: ambulatory Limitations: no limitations History of Present Illness HPI Narrative: 74-year-old male presents to the [facility] with very vague symptoms. States on Wednesday, 5 days ago he started with swollen glands, fatigue, chest congestion. States that whenever he eats protein that his lungs burn. States 5 days ago he did have an earache but put ?Cresson in it which helped the ear pain. Patient denies any cough. Denies any head congestion. Has not felt feverish. States that he has also taken vitamin-C for for his symptoms Patient is wearing a mask and gloves on exam. Onset (ago): day(s) (5) Related Data Home Medications ?Medication ?Instructions ?Recorded ?Confirmed ?Last Taken ?Type ascorbic acid (vitamin C) 1,000 mg 1 g PO DAILY 06/01/23 10/23/24 05/13/24 History capsule saw palmetto 160 mg capsule 160 mg PO BID 06/01/23 10/23/24 05/13/24 History lactobacillus combination no.4 3 3,000 mmu cells PO DAILY 04/28/24 10/23/24 05/13/24 History billion cell capsule (Probiotic) magnesium 250 mg tablet 250 mg PO DAILY 04/28/24 10/23/24 05/13/24 History Allergies Allergy/AdvReac Type Severity Reaction Status Date / Time No Known Allergies Allergy Verified 10/23/24 11:41 Review of Systems Review of Systems: All systems reviewed & are unremarkable except as noted in HPI and below Constitutional: Constitutional: Reports as per HPI and Reports fatigue ENT: Reports as per HPI Cardiovascular: Cardiovascular: Denies chest pain and Denies dyspnea Respiratory: Respiratory: Reports as per HPI, Reports no additional respiratory complaints, Reports chest congestion, Denies cough and Denies dyspnea Musculoskeletal: Musculoskeletal: Reports no additional musculoskeletal complaints Integumentary/Breasts: Skin/Breast: Reports system reviewed and no additional complaints, except as docu PMFSH Past Medical History Medical History OAB (overactive bladder) Umbilical hernia Thrombocytopenia Insomnia History of Lyme disease (~1997) Diverticulitis of colon with perforation (~11/2020) managed conservatively History of hepatitis C (~2017) Treated in 2018 Surgical History Surgical History History of varicose vein stripping (~2017) right thigh H/O umbilical hernia repair (~05/2024) 05/17/24 Laparoscopic 2 cm umbilical hernia repair with mesh, da Yolanda assisted Dr. Marques History of tonsillectomy (~1957) H/O inguinal hernia repair Open right inguinal hernia repair x 2 1998, 2015 Family History Family History Father Heart disease Alcoholism Other No pertinent family history Social History Social History Social History: caffeine-none Smoking packs per day: 0.25 Smoking cigarettes per day: 5.0 Years smoked: 30 Smoking pack-years: 7.50 Smoking status: Former smoker Tobacco type: cigarettes Smoking end date: 11/07/01 Additional smoking assessment comments: Smoked for 30 years and quit over 10 years ago Alcohol intake: former Alcohol use details: 20 years ago Substance use: never Substance use type: does not use Do You Feel Safe in your Home?: Yes Lack of Transportation: No Lack of Food: Never True Current Housing: I Have Housing Concerned About Future Housing: No Difficulty Paying Gas/Electric Bills: No Difficulty Paying for Meds: No Currently Unemployed: No Education: Decline to Answer Difficulty w/ Childcare or Family Care: No Living arrangements: alone Additional living arrangements comments: Lives alone. Occupation/Education: retired Additional occupation/education comments: Living in [place], from [place], for the past 2 years working on an [employer]. 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 Gender identity (if verbalized by the patient): Male Spiritual care concerns: No Agree to blood products: Yes Comments At the time of my signature, I reviewed and agree with the nursing past medical, surgical, social, and family history. There is no relevant family history pertinent to the patient complaint. Exam Const: General: cooperative, no acute distress, well developed, alert and thin Nutritional Appearance: well nourished Orientation/consciousness: patient oriented x3 Limitations: no limitations HENMT: Head: normal to inspection Ears: hearing grossly normal bilaterally, external ears normal, TM's normal bilaterally, EAC's normal, mastoids normal and no periauricular adenopathy Face/Nose/Sinus: Normal external nose present, Normal nares present and Normal nasal mucous membranes and turbinates present Face and sinus: normal facial exam and face symmetric Mouth: Yes Normal oral and palatal mucosa present, Yes lip normal, Yes tongue normal and Yes moist mucous membranes Throat: posterior oropharynx normal, uvula midline and no uvular edema Eyes: General: appearance normal, both eyes and all related structures Alignment and Position: alignment normal Neck: Neck: normal visual inspection, full ROM, no lymphadenopathy and no meningeal signs Chest: Chest palpation & inspection: normal inspection of the chest Resp: Effort & Inspection: normal respiratory effort and able to speak in complete sentences Auscultation: clear to auscultation bilaterally, no crackles, no rales, no rhonchi and no wheezes Cardio: Rate: regular rate Skin: General skin exam: normal color and no rashes or lesions noted Neuro: General: patient oriented x3, gait normal, moves all extremities and no meningeal signs Cognition (Neuro): normal cognition Speech: normal speech Gait exam (Neuro): Normal gait present Extrem: General: normal to inspection, full ROM, capillary refill normal and normal gait Psych: Appearance: grossly normal and well kempt Mental Status: mental status grossly normal Speech and movement: Normal speech and movement present and Clear speech present Affect: normal affect Attitude: cooperative Course Course Level of Care: Express Care Visit Vital Signs Vital signs: Vital Signs Temperature 98.3 F 10/23/24 11:40 Pulse Rate 58 L 10/23/24 11:40 Respiratory Rate 10/23/24 11:40 Blood Pressure 140/76 10/23/24 11:40 Pulse Oximetry 100 10/23/24 11:40 Oxygen Delivery Room Air 10/23/24 11:40 Temperature 98.3 F 10/23/24 11:40 Pulse Rate 58 L 10/23/24 11:40 Respiratory Rate 10/23/24 11:40 Blood Pressure 140/76 10/23/24 11:40 Pulse Oximetry 100 10/23/24 11:40 Oxygen Delivery Room Air 10/23/24 11:40 Reviewed MDM - URI/Sore Throat MDM Narrative Medical decision making narrative: Patient sitting in exam room. Patient is nontoxic. Patient presents with very vague symptoms of fatigue, congestion but denies cough or head congestion. Patient is reporting that whenever he eats protein he has lungs burn. Denies any other symptoms, shortness of breath, nausea or vomiting. Discussed possibility of acid reflux with patient which he denied. Patient was offered flu, COVID testing as well as a chest x-ray which he laughed at and states he does not believe he has those. Discussed no acute findings on exam with patient. Again offered the flu, COVID testing which he declined. Offered a chest x-ray which he declined. Patient laughed, stood up collected his belongings and left. Unable to give discharge instructions because patient walked out of clinic. Patient verbalized that he was not satisfied with what we offered Some parts of this dictation were generated by voice recognition software and may contain typographical and/or grammatical inaccuracies. Differential Diagnosis Differential diagnosis: Likely upper respiratory infection, otitis media, sinusitis, viral infection, bronchitis, influenza and pharyngitis Critical Care Time Critical Care Time Critical Care Time: No Discharge Plan Discharge Clinical Impression: Upper respiratory infection Patient Disposition: Elopement After Seen by Prov Patient Language: [place] Prescriptions: No Action ascorbic acid (vitamin C) 1,000 mg capsule 1 g PO DAILY saw palmetto 160 mg capsule 160 mg PO BID Rx Instructions: give with meal/snack magnesium 250 mg tablet 250 mg PO DAILY Probiotic 3 billion cell capsule 3,000 mmu cells PO DAILY Rx Instructions: administer with a meal Belsomra 10 mg tablet 10 mg PO QHS Qty: 90 1RF Follow-up/Referrals: Radha Sanchez MD [Primary Care Provider] -
[2024-10-23 11:40] VITALS: BP 140/76; PULSE 58; RESP 16; TEMP 36.8; O2SAT 100
== END 2024-10-23 12:05 | disposition left against medical advice (07) ==
PROVIDERS: Emergency Provider Nurse Practitioner; PCP Family Medicine
DX: J06.9 Acute upper respiratory infection, unspecified (principal); Z87.891 Personal history of nicotine dependence
CPT/HCPCS: 99211; G0463

== ENCOUNTER 2024-10-23 14:15 | Outpatient (CLI) | payer MEDICARE, SELFPAY ==
--- OUTSIDE RECORDS SUMMARY | 2024-10-23 15:23 | XMS_ITS | Clinical Summary ---
Author Organization [facility] Address [address] [place] [address] Care Team Providers Care [place] Machine Operator Name Role Phone Patrick Martínez Primary Care Provider + Allergies No known active allergies Medications doxylamine 25 MG tablet BEDTIME 1 Active sildenafil (VIAGRA) 100 MG tabletIndication s:Erectile dysfunction, unspecified erectile dysfunction type TAKE 1/2 TO 1 (ONE-HALF TO ONE) TABLET BY MOUTH ONCE DAILY NEEDED FOR ERECTILE DYSFUNCTION 30 tablet 3 Active Additional Information Patient not taking.Reported on 04/27/2023 mirtazapine (REMERON) 30 MG tabletIndication s:Primary insomnia TAKE 1 TABLET AT BEDTIME 90 tablet 10 3 Active pantoprazole EC (PROTONIX) 40 MG tablet TAKE 1 TABLET BY MOUTH EVERY MORNING FOR 4 WEEKS 3 Active Active Problems Problem Noted Date Diagnosed Date Gastritis 04/27/2023 Anxiety-like symptoms 04/27/2023 Diverticulitis of colon with perforation 021 BMI 26.0-26.9,adult 05/22/2019 Chronic hepatitis C without hepatic coma (CMS/HC C HHS/HCC) 10/15/2017 Primary insomnia 10/14/2017 Chronic insomnia 05/10/2003 Resolved Problems Problem Noted Date Diagnosed Date Resolved Date Diarrhea of presumed infectious origin 10/14/2017 01/05/2018 Immunizations Immunization Administration Dates Next Due Fluzone High Dose - >Age 65 (Prefilled Syringe) 02/28/2022,02/06/2020,03/01/2019 Hepatitis B(Engerix B Adult) 08/04/2018,01/06/20 18,11/29/2017 Influenza Adult (Generic) 03/21/2023,,03/04/2021,2020,02/06/2020,02/16/2017 MODERNA COVID-19 (12+) MRNA, LNP-S, PF, 100 MCG/ 0.5 ML DOSE 07/18/2020,07/18/2020,06/20/2020,2020 MODERNA COVID-19 (NATURAL RESOURCES EXTENSION EDUCATOR DALE MOISE), MRNA, LNP-S, PF, 50 MCG/ 0.25 ML DOSE 09/03/2021,04/02/2021 Pneumococcal (Pneumovax 23) 07/21/2017 Pneumococcal (Prevnar 13) 02/06/2016 Shingrix 02/06/2020,11/23/2019 Td 05/10/2007 Td (Generic) 05/16/2012 Td (TDVAX) 05/10/2007 Tdap (Generic) 05/16/2012 Zoster (Zostavax) 43286 Unt/0.65Ml 02/06/2020 Family History Medical History Relation Comments Heart Disease Father Bleeding Disorder Neg Hx Clotting Disorder Neg Hx Relation Status Comments Father Social History Tobacco Use Types Packs/Day Years Used Date Smoking Tobacco: Former Cigarettes 1 15 0 05/10/1987 - 05/10/2002 Passive Smoke Exposure: Never Smokeless Tobacco: Former Comments:na Alcohol Use Standard Drinks/Week Comments No 0 (1 standard drink = 0.6 oz pur e alcohol) PHQ-2 Answer Date Recorded Patient Health Questionnaire-2 Score 0 06/23/2022 Sex and Gender Information Value Date Recorded Sex Assigned at Not on file Legal Sex Male 10:05 AM CDT Gender Identity Not on file Sexual Orientation Not on file 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 Not on file Not on file [employer] Not on file Not on file Not on file Last Filed Vital Signs Vital Sign Reading Time Taken Comments Blood Pressure 104/76 04/30/2023 9:41 AM HAND COKE DRAWER Pulse 81 04/30/2023 9:41 AM HAND COKE DRAWER Temperature 36.9 C (98.4 F) 04/27/2023 11:47 AM HAND COKE DRAWER Respiratory Rate 16 04/27/2023 11:47 AM HAND COKE DRAWER Oxygen Saturation 98% 04/30/2023 9:41 AM HAND COKE DRAWER Inhaled Oxygen Concentration - - Weight 78.2 kg (172 lb 6.4 oz) 04/30/2023 9:41 A M HAND COKE DRAWER Height 182.9 cm (6') 04/30/2023 9:41 AM HAND COKE DRAWER Body Mass Index 23.38 04/30/2023 9:41 AM HAND COKE DRAWER Plan of Treatment Health Maintenance Due Date Last Done Comments RSV Immunization or 60+ Years (1 - Risk 60-74 years 1-dose series) 2012 Annual Medicare Wellness Visit 2017 Zoster Vaccines (3 of 3) 04/02/2020 020, 02/06/2020, 11/23/2019 DTaP, Tdap and Td Vaccines (3 - Td or Tdap) 05/16/2022 05/16/2012, 05/16/2012, 05/10/2007, Additional history exists COVID-19 Vaccine ( season) 2024 02/28/2022, 09/03/2021, 04/02/2021, Additional history exists PHQ-2 (Physician [place]) 05/10/2024 Colorectal Cancer Screening FIT-DNA (3 Years) 06/17/2024 06/17/2021 Pneumococcal Vaccine: 50+ Years Completed 07/21/2017, 02/06/2016 Hepatitis C Completed 12/01/2022, 06/10, 06/23/2022, Additional history exists Meningococcal B Vaccine Aged Out No l onger eligible based on patient's age to complete this topic Meningococcal Vaccine Aged Out No analia breanna eligible based on patient's age to complete this topic RSV Immunizations Under 20 Months Aged Out No longer eligible based on patient's age to complete this topic Procedures Procedure Name Priority Date/Time Associated Diagnosis Comments HEPATITIS C RNA W/ REFLX GENOTYPE Routine 06/23/2022 2:28 PM HAND COKE DRAWER Chronic hepatitis C without hepatic coma Annual physical exam Screening for endocrine, metabolic and immunity disorder COLOGUARD (EXACT SCIENCE) Routine 06/17/2021 7:30 AM HAND COKE DRAWER Screening for malignant neoplasm of colon from Last 3 Months or Most Recently Relevant to Health Maintenance Results * HEPATITIS C RNA W/ REFLX GENOTYPE (06/23/2022 2:28 PM HAND COKE DRAWER) HEPATITIS C RNA PCR QNT <15 NOT DETECTED IU/mL [facility] HE[facility] C RNA PCR QNT <1.18 NOT DETECTED LogIU/mL [facility] Comment: REFERENCE RANGE: NOT DETECTED IU/mL NOT DETECTED Log IU/mL This test was performed using Real-Time Polymerase Chain Reaction Reportable range is 15 to 100,000,000 IU/mL (1.18-8.00 Log IU/mL). The analytical performance characteristics of this assay have been determined by [employer]. The modifications have not been cleared or approved by the FDA. This assay has been validated pursuant to the CLIA regulations and is used for clinical purposes. For additional information, please refer to http://education.[employer]/faq/UHR79u4 (This link is being provided for informational/ educational purposes only.) 06/23/2022 2:28 PM HAND COKE DRAWER 06/24/2022 12:22 AM HAND COKE DRAWER Narrative Resulting Agency Comment Performing Organization Information: Site ID: [id number] Name: [facility], Address: [address] [place] [id number] Director: Josee Springer MD,PhD,JUNG us Patrick Martínez DO LABORATORY Final Re sult [facility] [address] [address], * COLOGUARD ([employer] SCIENCE) (06/17/2021 7:30 AM HAND COKE DRAWER) COLOGUARD RESULT Negative Negative [employer] (CLIA #:[id number]) Comment: NEGATIVE TEST RESULT. A negative Cologuard result indicates a low likelihood that a colorectal cancer (CRC) or advanced adenoma (adenomatous polyps with more advanced pre-malignant features) is present. The chance that a person with a negative Cologuard test has a colorectal cancer is less than 1 in 1500 (negative predictive value >99.9%) or has an advanced adenoma is less than 5.3% (negative predictive value 94.7%). These data are based on a prospective cross-sectional study of 10,000 individuals at average risk for colorectal cancer who were screened with both Cologuard and colonoscopy. (Lizette Aguirre et al, N Engl J Med 2014;370(14):2191-5433) The normal value (reference range) for this assay is negative. COLOGUARD RE-SCREENING RECOMMENDATION: Periodic colorectal cancer screening is an important part of preventive healthcare for asymptomatic individuals at average risk for colorectal cancer. Following a negative Cologuard result, the [place] [employer] Society and U.S. Multi-Society Task Force screening guidelines recommend a Cologuard re-screening interval of 3 years. References: [place] [employer] Guideline for Colorectal Cancer Screening: https://www.cancer.org/cancer/sjkqe-frgpsw-fjkqck/ufzwzsole-ccsvwovao-hsvkcsb/ac s-rec ommendations.html.; Ernst DK, Rashad CR, Anai GalarzaK, Colorectal Cancer Screening: Recommendations for Physicians and Patients from the U.S. Multi-Society Task Force on Colorectal Cancer Screening , Am J Gastroenterology 2017; 112:8698-1679. TEST DESCRIPTION: Composite algorithmic analysis of stool DNA-biomarkers with hemoglobin immunoassay. Quantitative values of individual biomarkers are not reportable and are not associated with individual biomarker result reference ranges. Cologuard is intended for colorectal cancer screening of adults of either sex, 45 years or older, who are at average-risk for colorectal cancer (CRC). Cologuard has been approved for use by the U.S. FDA. The performance of Cologuard was established in a cross sectional study of average-risk adults aged 50-84. Cologuard performance in patients ages 45 to 49 years was estimated by sub-group analysis of near-age groups. Colonoscopies performed for a positive result may find as the most clinically significant lesion: colorectal cancer [4.0%], advanced adenoma (including sessile serrated polyps greater than or equal to 1cm diameter) [20%] or non- advanced adenoma [31%]; or no colorectal neoplasia [45%]. These estimates are derived from a prospective cross-sectional screening study of 10,000 individuals at average risk for colorectal cancer who were screened with both Cologuard and colonoscopy. (Lizette Jordan al, N Engl J Med 2014;370(14):8248-9271.) Cologuard may produce a false negative or false positive result (no colorectal cancer or precancerous polyp present at colonoscopy follow up). A negative Cologuard test result does not guarantee the absence of CRC or advanced adenoma (pre-cancer). The current Cologuard screening interval is every 3 years. ([place] Cancer Society and U.S. Multi-Society Task Force). Cologuard performance data in a 10,000 patient pivotal study using colonoscopy as the reference method can be accessed at the following location: www.[employer].Looklet/results. Additional description of the Cologuard test process, warnings and precautions can be found at www.cologuard.com. STOOL STOOL SPECIMEN / Unknown 06/17/2021 7:30 AM HAND COKE DRAWER 06/18/2021 12:13 PM HAND COKE DRAWER us Patrick Martínez DO BODY FLUIDS AND STOOLS O RDERABLES Final Result Performing Organization Address City/State/[facility] Co de Phone Number [employer] ([employer] [address]) [address] [place] [address], [employer] (CLIA #:[id number]) [address] [place] [address] from Last 3 Months or Most Recently Relevant to Health Maintenance Insurance GENERIC - COMMERCIAL GENERIC - COMMERCIAL GENERIC - COMMERCIAL GENERIC - COMMERCIAL HUMANA Care Teams Kings[place] Machine Operator Relationship Specialty Start Date End Date Patrick Martínez DO [address] [place] [id number] PCP - General FAMILY PRACTICE 12/21/18
--- OUTSIDE RECORDS SUMMARY | 2024-10-23 15:23 | XMS_ITS | CONTINUITY OF CARE DOCUMENT ---
Author Name leandra loganmodesto Address Unknown Organization [facility] Address [id number] [place] [address] [address] [place] [address] Phone [phone] Care Team Providers Care Case Advocate Name Role Phone Jb Diego MD Unavailable [phone] Jb Diego MD Unavailable [phone] Patrick Martínez MD Unavailable PROBLEMS Condition Status Date Provider Notes Cardiology examination active Mark Hou ri Back Pain active Mark Houri CHEST PAIN active Mark Nichols ENCOUNTERS Date Type Provider Location Encounter Diag nosis - In-person encounter Office Visit Jb Diego MD [facility] - In-person encounter Office Visit Jb Diego MD [facility] Cardiology examinationBack PainCHEST PAIN VITAL SIGNS Date Observation Value Provider Body Mass Index (Ratio) 24.27 kg/m2 Shirin am Simone blood pressure, cuff size regular Ke rri Andrewueplaak blood pressure, diastolic 82 mm[Hg] Ke rri Grueneselwyn blood pressure, systolic 124 mm[Hg] Brandi Greenberg oxygen saturation, oximetry 97 % Judi Greenberg respiratory rate E&M 12 /min Judi davila pulse rate 53 /min Judi goode weight E&M 179 [lb_av] Judi Patricia [facility] height E&M 72 [in_i] Judi Gomez [facility] Body Mass Index (Ratio) 23.46 kg/m2 Shirin Nichols blood pressure, diastolic 87 mm[Hg] Li [employer] blood pressure, systolic 137 mm[Hg] Janneth kLogkim pulse rate 60 /min Haley Ramires blood pressure, diastolic 87 mm[Hg] Shai Ramires blood pressure, systolic 137 mm[Hg] She andi Ramires oxygen saturation, oximetry 98 % Haley Ramires respiratory rate E&M 18 /min Haleytriston Ramires height E&M 72 [in_i] Haley Ramires blood pressure, cuff size regular reilly Ramires weight E&M 173 [lb_av] Haleytriston Ramires ALLERGIES Allergy Name Onset Date Reaction Criticality Status SOY High Criticality active HISTORY OF MEDICATION USE Medication Status Instructions Dates Provider Indications Com ments Belsomra 10 mg tablet active take 1 pill a day Judi Dionicio SOCIAL HISTORY Date Observation Value Provider smoking status Never smoker Jb Mauro smoking status Never smoker Haley Ramires INSURANCE PROVIDERS Payer name Policy type / Coverage type [place] [employer] ID HU[employer] PPO O [id number] ADVANCE DIRECTIVES Name Date DISCUSSED - NO DECISION MADE TREATMENT PLAN Date Name Performer Cardiology Jb Diego MD Cardiology:Myoview a nd echo are essentially normal. Additional testing that can be performed are CT of chest and cardiac cath, however patient does not want to have testing done at this time. He will call us back if sx worsen. Jb Diego MD Cardiology:Pt contin ues to have episodes of chest and back pain. Myoview and echo are essentially normal. Additional testing that can be performed are CT of chest and cardiac cath, however patient does not want to have testing done at this time. He will call us back if sx worsen. Jb Diego MD Cardiology Mark Nichols Cardiology:Pt had mu ltiple ER visits due to chest pain. EKG is abnormal with incomplete RBBB. Father had heart attack in 50s. Pt has severe pain in right hip and is not able to walk on treadmill. Mark Nichols Date Name Stress Regadenoson Complete Echo HISTORY OF PROCEDURES Procedure Date Procedure Name Provider Procedure Notes S tatus EKG Jb Diego MD completed
--- OUTSIDE RECORDS SUMMARY | 2024-10-23 15:23 | XMS_ITS | Encounter Summary ---
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
--- OUTSIDE RECORDS SUMMARY | 2024-10-23 15:23 | XMS_ITS | Data Portability ---
Author Organization [place] [facility] [place] [facility], Main Office Address [address] [place] [address] Care Team Providers Care Freight Manager Name Role Phone TSERING PACHECO Primary Care Provider [phone] TSERING PACHECO Referring Provider Assessment Encounter Date Assessment Date Assessment LastModified by Organization Details LastModified Time 10/13/2023 10/13/2023 73-year-old male presents for evaluation of his right hip. He reports pain since February of last year. He denies any acute injury, but states that he thinks it is related to some food that he ate. He reported that he needed to be on crutches for about 3 weeks. Since then, he has been doing exercises at home for his hip. He is taking aspirin but has not had anything else because he does not like taking medications. The pain is located over the lateral aspect of his hip. He rates it as 3/10. He previously saw another orthopedic surgeon who told him to just use a cane. Review of systems per patient questionnaire Physical exam: He has tenderness over the lateral hip. Nonantalgic gait, negative Trendelenburg. He is hip flexion to 100, internal rotation 10, external rotation 30, no pain with internal and external rotation or with logroll. Negative Stinchfield. Negative Jesus. X-rays were reviewed, demonstrating mild to moderate degenerative changes of the hip joint He has trochanteric bursitis. I would recommend a course of physical therapy specifically for the lateral hip, which it does not sound like he has done before. Since he does not like taking oral medications, he can try Voltaren gel. He may follow-up as needed. [email or web address] Not available 10/13/2023 13:35:36 09/13/2024 09/13/2024 Patient presents today with bilateral wrist and thumb pain that has been going on for about 2 weeks. Right side is worse than the left. He denies any specific injury but states that he is an avid snow maker and plays daily. He is starting to have shooting pain into the wrists with playing the piano. He sometimes has tingling and numbess when this happens. He feels that both hands are very weak. Rates his pain 4/10. For treatment he has tried home exercises, heat, ice, aloe, and tumeric. He does not like to take medications unless necessary as they upset his stomach and affect his urology issues. Review of system per patient questionnaire. Imaging: X-rays reviewed of bilateral wrists show no acute bony abnormality or fracture. 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 Physical exam: Tenderness with palpitation around bilateral thumb CMC. Tenderness at right anterior wrist. Positive Phalen's on the right. No issues with hand or wrist ROM. Sensation intact to light touch. It is likely he is experiencing both carpal tunnel and arthritic symptoms. We discussed that we could try bilateral wrist braces to wear at night. We recommend a hand therapist to work on lack of strength and pain with certain movements. He would like to try exercises on his own so we will provide him with a handout. We recommend a steroid pack to help with inflammation but he would not like to take medications at this time. We recommend trying Voltaren gel. We can see him back in 4-6 weeks for recheck if he is still experiencing symptoms. He is in agreement with this plan. [email or web address] Not available 09/13/2024 14:21:44 Plan of Treatment Reminders Order Date Submit Date Provider Last Modified By Organization Details Last Modified Time Details Appointments None recorded. Lab None recorded. Referral physical therapist referral 2023 024 [email or web address] Not available 4 09:56:37 Procedures None recorded. Surgeries None recorded. Imaging XR, wrist 2024 025 [email or web address] [facility] [place], [address], [place], [address], 5 14:06:20 Medication Orders None recorded. Patient TargetsNo targets recorded. Patient InstructionsNo instructions recorded. Reason for Referral Physical Therapist Referral for Tendinitis of right hip Referring Physician: Danish Casas, Orthopedic Surgery, Encounter Date: 10/13/2023 Results Created Date Observation Date Name Description Value Unit Range Abnormal Flag Note LastModifiedBy Organization Detail LastModifiedTime 09/27/19 24 08/03/2023 XR, hip + pelvi s, unila teral , 2 or 3 view No observ ation record ed. [email or web address] Not Available 09/08 15:52:34 09/14/19 25 XR, wrist No observ ation record ed. [email or web address] [facility] [place] [address], [place], [address], 09/13/2024 14:06:19 Result Notes None recorded. Problems Name Problem SNOMED Code Status Onset Date Resolution Date Notes Provider Name and Address Organization Details Recorded Time Pain of right hip joint 7998524963374 02 Active 2023 DANNY Harris, [facility] [employer] [facility] 4 11:11:18 Tendinitis of right hip 0193060114117 9104 Active 2023 Charmaine Danielle obi, MD [employer] [facility] [employer] [facility] 4 11:48:05 Pain of joint of wrist 737062874 Active 2024 Sariah Osborne CNA null, [facility] [employer] [facility] 5 11:08:57 Problem Notes None recorded. Procedures Surgical History Date Name Laterality Status Provider Name and Address Organization Details Recorded Time Hernia Repair completed DANNY Mike KBLE [facility] [employer] [facility] 10/13/2023 11:09:51 Imaging Results None recorded. Procedure Notes None recorded. Medical Equipment None Reported. Allergies No known drug allergies Medications Name Sig Start Date Stop Date Status Note LastModified by Organization Details LastModified Time oxybutynin chloride ER 10 mg tablet,exte nded release 24 hr TAKE 1 TABLET BY MOUTH ONCE DAILY active Not Available Not Available No t Available ibuprofen 800 mg tablet TAKE 1 TABLET BY MOUTH EVERY 8 HOURS NEEDED FOR PAIN active Not Available Not Available No t Available fluconazole 150 mg tablet TAKE 1 TABLET BY MOUTH ONCE DAILY active Not Available Not Available No t Available hydrocodone 5 mg-acetamin ophen 325 mg tablet TAKE 1 TABLET BY MOUTH EVERY 4 HOURS NEEDED FOR PAIN active Not Available Not Available No t Available Anucort-HC 25 mg suppository INSERT 1 SUPPOSITO RY RECTALLY EVERY DAY AT BEDTIME active Not Available Not Available No t Available tamsulosin 0.4 mg capsule active Not Available Not Available Not Available pantoprazol e 40 mg tablet,olivia yed release TAKE 1 TABLET BY MOUTH EVERY MORNING FOR 4 WEEKS 10/12 completed Not Available Not Available Not Available mirtazapine 30 mg tablet 10/12 completed Not Available Not Available Not Available clotrimazol e 1 % topical cream APPLY TOPICALLY TO THE AFFECTED AREA EVERY 12 HOURS FOR 8 WEEKS active Not Available Not Available No t Available Belsomra 10 mg tablet TAKE 1 TABLET BY MOUTH EVERY DAY AT BEDTIME active Not Available Not Available No t Available Gemtesa 75 mg tablet TAKE 1 TABLET BY MOUTH ONCE DAILY active Not Available Not Available No t Available Vitals Date Recorded Body height Body mass index (BMI) Body weight Provider Name and Address Organization Details Last Updated DateTime 09/13/2024 182.88 cm 23.1 kg/m2 51616.7 g Sariah Osborne CNA [facility] 09/13/2024 11:07:23 Date Recorded Body height Body mass index (BMI) Body weight Provider Name and Address Organization Details Last Updated DateTime 10/13/2023 182.88 cm 23.1 kg/m2 33990.7 g DANNY Harris [facility] [employer] 10/13/2023 11:08:17 Social History Question Answer Notes LastModified by Organizat ion Details LastModified Time Tobacco Smoking Status Unknown If Ever Smoked DANNY Harris [facility] [employer] 10/13/2023 11:09:14 What Was The Date Of Your Most Recent Tobacco Screening? 10/13/2023 [email or web address] Information not available 10/13/2023 Sex: Unknown Functional Status Question Answer Note LastModified by Organization D etails LastModified Time What is your level of alcohol consumption? None [email or web address] Information not available 10/13/2023 Mental Status None recorded. Family History Nothing Reported. Medical History Condition Response ARTHRITIS Y HEPATITIS / LIVER DISEASE Y Past Encounters Encounter ID Performer Location Encounter Start Date Encounter Closed Date Diagnosis/Indication Diagnosis SNOMED-CT Code Diagnosis ICD10 Code Diagnosis Note [id number] Danish Casas MD [facility] [place] [address] [place] [address] 10/13/2023 10:50:59 10/13/2023 11:56:07 Pain of right hip joint [id number] 96116 M25.551 Tendinitis of right hip 9490513229 5804300 M76.891 M70.61 [id number] Danish Casas MD [facility] [place] [address] [place] [address] 09/13/2024 10:57:55 09/13/2024 12:01:58 Pain of joint of wrist 974159575 M25.531 M25.532 Health Concerns Section Related Observation LastModified by Organization Detai ls LastModified Time None Recorded Concern Status LastModified by Organization Details LastModified Time None Recorded Advance Directives Directive None Recorded Payers Insurance Date Sequence Insurance Name Policy Number Policy Aguilar Covered Member ID Aguilar Member ID Guarantor Name 09/13/2024 [employer] (MEDICARE REPLACEMENT/A DVANTAGE - PPO) Dorian Kat [id number] Dorian Kat 10/06/2024 1 [employer] (MEDICARE REPLACEMENT/A DVANTAGE - PPO) Dorian Kat [id number] Dorian Kat 09/13/2024 1 [employer] Dorian Kat [id number] Dorian Kat
[2024-10-23 20:55] LABS: Strep Group A RT-PCR NOT DETECTED (Negative)
[2024-10-23 21:04] LABS: Influenza A QL RT-PCR Negative (Negative); Influenza B QL RT-PCR Negative (Negative); RSV RNA, RT-PCR Negative (Negative); SARS-CoV-2 RNA PCR Negative (Negative)
== END 2024-10-23 14:16 | disposition home or self-care (01) ==
LOC: ANHGOSHLAB 14:16
PROVIDERS: PCP Family Medicine; Visit Provider Family Medicine
DX: J06.9 Acute upper respiratory infection, unspecified (principal); Z20.822 Contact with and (suspected) exposure to COVID-19
CPT/HCPCS: 87637; 87651

== ENCOUNTER 2024-12-18 11:43 | Outpatient (CLI) | payer MEDICARE, SELFPAY ==
--- OUTSIDE RECORDS SUMMARY | 2024-12-18 11:45 | XMS_ITS | Clinical Summary ---
Author Organization [facility] Address [address] [place] [address] Care Team Providers Care Vocal Music Instructor Name Role Phone Patrick Martínez Primary Care [...] MCG/ 0.5 ML DOSE 07/18/2020,07/18/2020,06/20/2020,2020 MODERNA COVID-19 (MANAGER DIGITAL DALE MOISE), MRNA, LNP-S, PF, 50 MCG/ 0.25 ML DOSE 09/03/2021,04/02/2021 Pneumococcal (Pneumovax 23) 07/21/2017 Pneumococcal (Prevnar 13) 02/06/2016 Shingrix 02/06/2020,11/23/2019 Td 05/10/2007 Td (Generic) 05/16/2012 Td (TDVAX) 05/10/2007 Tdap (Generic) 05/16/2012 Zoster (Zostavax) 71059 Unt/0.65Ml 02/06/2020 Family History Medical History Relation [...] file Not on file Not on file 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 Not on file Not on file Not on file Last Filed Vital Signs Vital Sign Reading Time Taken Comments Blood Pressure 104/76 04/30/2023 9:41 AM GRAIN MIXER Pulse 81 04/30/2023 9:41 AM GRAIN MIXER Temperature 36.9 C (98.4 F) 04/27/2023 11:47 AM GRAIN MIXER Respiratory Rate 16 04/27/2023 11:47 AM GRAIN MIXER Oxygen Saturation 98% 04/30/2023 9:41 AM GRAIN MIXER Inhaled Oxygen Concentration - - Weight 78.2 kg (172 lb 6.4 oz) 04/30/2023 9:41 A M GRAIN MIXER Height 182.9 cm (6') 04/30/2023 9:41 AM GRAIN MIXER Body Mass Index 23.38 04/30/2023 9:41 AM GRAIN MIXER Plan of Treatment Health Maintenance Due Date [...] 09/03/2021, 04/02/2021, Additional history exists PHQ-2 (Physician [place]) 05/10/2024 Colorectal Cancer Screening FIT-DNA (3 Years) [...] W/ REFLX GENOTYPE Routine 06/23/2022 2:28 PM GRAIN MIXER Chronic hepatitis C without hepatic coma Annual physical exam Screening for endocrine, metabolic and immunity disorder COLOGUARD (EXACT SCIENCE) Routine 06/17/2021 7:30 AM GRAIN MIXER Screening for malignant neoplasm of colon from Last 3 Months or Most Recently Relevant to Health Maintenance Results * HEPATITIS C RNA W/ REFLX GENOTYPE (06/23/2022 2:28 PM GRAIN MIXER) HEPATITIS C RNA PCR QNT <15 NOT DETECTED IU/mL [facility] HE[facility] RNA PCR QNT <1.18 NOT DETECTED LogIU/mL [facility] Comment: REFERENCE RANGE: NOT DETECTED IU/mL NOT DETECTED Log IU/mL This test was performed using Real-Time Polymerase Chain Reaction Reportable range is 15 to 100,000,000 IU/mL (1.18-8.00 Log IU/mL). The analytical performance characteristics of this assay have been determined by [employer]. The modifications have not been cleared or approved by the FDA. This assay has been validated pursuant to the CLIA regulations and is used for clinical purposes. For additional information, please refer to http://education.[employer]/faq/NRH37h8 (This link is being provided for informational/ educational purposes only.) 06/23/2022 2:28 PM GRAIN MIXER 06/24/2022 12:22 AM GRAIN MIXER Narrative Resulting Agency Comment Performing Organization Information: Site ID: [id number] Name: [facility], Address: [address] [place] [address] Director: Josee Springer MD,PhD,JUNG us Patrick Martínez DO LABORATORY Final Re sult [facility] [address] [address], * COLOGUARD (Qovia SCIENCE) (06/17/2021 7:30 AM GRAIN MIXER) COLOGUARD RESULT Negative Negative [employer] (CLIA #:[id number]) Comment: NEGATIVE TEST RESULT. A negative Cologuard [...] Aguirre et al, N Engl J Med 2014;370(14):5339-1114) The normal value (reference range) for this assay is negative. COLOGUARD RE-SCREENING RECOMMENDATION: Periodic colorectal cancer screening is an important part of preventive healthcare for asymptomatic individuals at average risk for colorectal cancer. Following a negative Cologuard result, the [place] Cancer Society and U.S. Multi-Society Task Force screening guidelines recommend a Cologuard re-screening interval of 3 years. References: [place] Cancer Society Guideline for Colorectal Cancer Screening: https://www.cancer.org/cancer/uyyjp-prgnny-mcjmje/wnqkqcrnd-euoqbuevy-bvuwpxq/ac s-rec ommendations.html.; Ernst DK, Rashad CR, Anai GalarzaK, Colorectal Cancer Screening: Recommendations for Physicians and Patients from the U.S. Multi-Society Task Force on Colorectal Cancer Screening , Am J Gastroenterology 2017; 112:5811-2729. TEST DESCRIPTION: Composite algorithmic analysis of stool [...] (Lizette Jordan al, N Engl J Med 2014;370(14):4459-3178.) Cologuard may produce a false negative or false positive result (no colorectal cancer or precancerous polyp present at colonoscopy follow up). A negative Cologuard test result does not guarantee the absence of CRC or advanced adenoma (pre-cancer). The current Cologuard screening interval is every 3 years. ([place] Cancer Society and U.S. Multi-Society Task Force). Cologuard performance data in a 10,000 patient pivotal study using colonoscopy as the reference method can be accessed at the following location: www.[employer]/results. Additional description of the Cologuard test process, warnings and precautions can be found at www.cologuard.com. STOOL STOOL SPECIMEN / Unknown 06/17/2021 7:30 AM GRAIN MIXER 06/18/2021 12:13 PM GRAIN MIXER us Patrick Martínez DO BODY FLUIDS AND STOOLS O RDERABLES Final Result Performing Organization Address City/State/[facility] Co de Phone Number [employer] ([address] [facility]) [address] [place] [place] [address], [employer] (CLIA #:[id number]) [address] [place] [address] from Last 3 Months or Most Recently Relevant to Health Maintenance Insurance GENERIC - COMMERCIAL GENERIC - COMMERCIAL GENERIC - COMMERCIAL GENERIC - COMMERCIAL HUMANA Care Teams Vocal Music Instructor Relationship Specialty Start Date End Date Patrick Martínez DO [address] [place] [id number] PCP - General FAMILY PRACTICE 12/21/18
--- OUTSIDE RECORDS SUMMARY | 2024-12-18 11:45 | XMS_ITS | Encounter Summary ---
Author Organization [facility] Address [address] [place] [address] Care Team Providers Care Jewelry Coater Name Role Phone Patrick Martínez DO Primary Care Provider + Encounter Details Date Type Department Care Team (Late st Contact Info) Description 06/02/2024 [employer] Message [address] [address] [employer], [facility] Provider Sign Up for NEW [employer] account Social History Tobacco Use Types Packs/Day [...] file Not on file Not on file [employer] Not on file Not on file Not on file documented as of this encounter Plan of Treatment Not on file documented as of this encounter Visit Diagnoses Not on filedocumented in this encounter Additional Health Concerns Assessment Noted Time PHQ-9 Depression Total Score: 0 06/02/19 22 10:06 AM FAMILY PRACTICE MD documented as of this encounter Care Teams Jewelry Coater Relationship Specialty Start Date End Date Patrick Martínez DO [address] [place] [address] PCP - General FAMILY PRACTICE 12/21/18 documented as of this encounter
[2024-12-18 13:04] LABS: Hematocrit 41.0 % (42.0-52.0); Hemoglobin 14.5 g/dL (14.0-18.0); Immature Granulocyte Percent A 0.2 % (0-0.5); Immature Platelet Fraction Pct 2.5 % (0.9-11.2); Lymphocytes Absolute Auto 1.09 K/mm3 (0.9-3.2); Mean Corpuscular HGB Conc 35.4 g/dl (32-36); Mean Corpuscular Hemoglobin 33.6 pg (26-34); Mean Corpuscular Volume 95.1 fl (80-100); Nucleated Red Blood Cells Absolute Auto 0.000 K/mm3 (0.0-0.012); Nucleated Red Blood Cells Perc 0.0 % (0.0-0.2); Platelet Count Result 143 k/mm3 (150-375); Red Blood Count 4.31 M/mm3 (4.6-6.20); White Blood Count 4.6 K/mm3 (4.5-10.0)
[2024-12-18 13:06] LABS: Alanine Aminotransferase 14 U/L (6-50); Albumin Level 4.3 g/dL (3.5-5.1); Alkaline Phosphatase 60 U/L (38-126); Anion Gap 6 mmol/L (4-12); Aspartate Amino Transferase 37 U/L (17-59); Bilirubin,Total 0.4 mg/dL (0.2-1.3); Blood Urea Nitrogen 20 mg/dL (9-20); Calcium 9.2 mg/dL (8.4-10.2); Carbon Dioxide 26 mmol/L (22-30); Chloride 96 mmol/L (98-107); Estimated Glomerular Filt Rate > 60; Glucose 94 mg/dL (65-110); Potassium 4.7 mmol/L (3.4-5.0); Sodium 128 mmol/L (137-145); Total Protein 7.5 g/dL (6.3-8.2)
== END 2024-12-18 11:44 | disposition home or self-care (01) ==
LOC: ANHGOSHLAB 11:43
PROVIDERS: PCP Family Medicine; Visit Provider Nurse Practitioner Family
DX: R07.89 Other chest pain (principal)
CPT/HCPCS: 36415; 80053; 85025; 85055

== ENCOUNTER 2024-12-18 13:53 | Outpatient (CLI) | payer MEDICARE, SELFPAY ==
--- NOTE | ~2024-12-18 | XR_ITS ---
EXAMINATION: XR chest 2V 12/18/2024 14:11 INDICATION: Chest pain and shortness of breath PROCEDURE: 2 view chest COMPARISON: 04/21/2023 FINDINGS: The lungs are clear. The cardiomediastinal silhouette is within normal limits. There are no pleural effusions. There is no pneumothorax suspected. IMPRESSION: 1: NO ACUTE CARDIOPULMONARY DISEASE. Reviewed, dictated and finalized at location A.
--- OUTSIDE RECORDS SUMMARY | 2024-12-18 14:12 | XMS_ITS | Encounter Summary ---
Author Organization [facility] Address [address] [place] [address] Care Team Providers Care Test Desk Operator Name Role Phone Patrick Martínez DO Primary Care Provider + Encounter Details Date Type Department Care Team (Late st Contact Info) Description 06/02/2024 [employer] Message [address] [address] [employer], [facility] Provider Sign Up for NEW [employer] account Social History Tobacco Use Types Packs/Day [...] file Not on file Not on file Online Program Coordinator Not on file Not on file Not on file documented as of this encounter Plan of Treatment Not on file documented as of this encounter Visit Diagnoses Not on filedocumented in this encounter Additional Health Concerns Assessment Noted Time PHQ-9 Depression Total Score: 0 06/02/19 22 10:06 AM AUTOMOBILE SERVICE WRITER documented as of this encounter Care Teams Test Desk Operator Relationship Specialty Start Date End Date Patrick Martínez DO [address] [place] [address] PCP - General FAMILY PRACTICE 12/21/18 documented as of this encounter
--- OUTSIDE RECORDS SUMMARY | 2024-12-18 14:13 | XMS_ITS | Clinical Summary ---
Author Organization [facility] Address [address] [place] [address] Care Team Providers Care Poultry Offal Worker Name Role Phone Patrick Martínez Primary Care [...] MCG/ 0.5 ML DOSE 07/18/2020,07/18/2020,06/20/2020,2020 MODERNA COVID-19 (NUCLEAR POWERPLANT MECHANIC HELPER DALE MOISE), MRNA, LNP-S, PF, 50 MCG/ 0.25 ML DOSE 09/03/2021,04/02/2021 Pneumococcal (Pneumovax 23) 07/21/2017 Pneumococcal (Prevnar 13) 02/06/2016 Shingrix 02/06/2020,11/23/2019 Td 05/10/2007 Td (Generic) 05/16/2012 Td (TDVAX) 05/10/2007 Tdap (Generic) 05/16/2012 Zoster (Zostavax) [address]1114 Unt/0.65Ml 02/06/2020 Family History Medical History Relation [...] file Not on file Not on file 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 Not on file Not on file Not on file Last Filed Vital Signs Vital Sign Reading Time Taken Comments Blood Pressure 104/76 04/30/2023 9:41 AM FOOD PREP WORKER Pulse 81 04/30/2023 9:41 AM FOOD PREP WORKER Temperature 36.9 C (98.4 F) 04/27/2023 11:47 AM FOOD PREP WORKER Respiratory Rate 16 04/27/2023 11:47 AM FOOD PREP WORKER Oxygen Saturation 98% 04/30/2023 9:41 AM FOOD PREP WORKER Inhaled Oxygen Concentration - - Weight 78.2 kg (172 lb 6.4 oz) 04/30/2023 9:41 A M FOOD PREP WORKER Height 182.9 cm (6') 04/30/2023 9:41 AM FOOD PREP WORKER Body Mass Index 23.38 04/30/2023 9:41 AM FOOD PREP WORKER Plan of Treatment Health Maintenance Due Date [...] 09/03/2021, 04/02/2021, Additional history exists PHQ-2 (Physician [place]) 05/10/2024 Colorectal Cancer Screening FIT-DNA (3 Years) [...] W/ REFLX GENOTYPE Routine 06/23/2022 2:28 PM FOOD PREP WORKER Chronic hepatitis C without hepatic coma Annual physical exam Screening for endocrine, metabolic and immunity disorder COLOGUARD (EXACT SCIENCE) Routine 06/17/2021 7:30 AM FOOD PREP WORKER Screening for malignant neoplasm of colon from Last 3 Months or Most Recently Relevant to Health Maintenance Results * HEPATITIS C RNA W/ REFLX GENOTYPE (06/23/2022 2:28 PM FOOD PREP WORKER) HEPATITIS C RNA PCR QNT <15 NOT DETECTED IU/mL [facility] HEPATITIS C RNA PCR QNT <1.18 NOT DETECTED LogIU/mL [facility] Comment: REFERENCE RANGE: NOT DETECTED IU/mL NOT DETECTED Log IU/mL This test was performed using Real-Time Polymerase Chain Reaction Reportable range is 15 to 100,000,000 IU/mL (1.18-8.00 Log IU/mL). The analytical performance characteristics of this assay have been determined by [employer]. The modifications have not been cleared or approved by the FDA. This assay has been validated pursuant to the CLIA regulations and is used for clinical purposes. For additional information, please refer to http://education.[employer]/faq/MCL11b0 (This link is being provided for informational/ educational purposes only.) 06/23/2022 2:28 PM FOOD PREP WORKER 06/24/2022 12:22 AM FOOD PREP WORKER Narrative Resulting Agency Comment Performing Organization Information: Site ID: [id number] Name: [facility], Address: [address] [place] [address] Director: Josee Springer MD,PhD,JUNG us Patrick Martínez DO LABORATORY Final Re sult [facility] [address] [address], * COLOGUARD (ITI Tech SCIENCE) (06/17/2021 7:30 AM FOOD PREP WORKER) COLOGUARD RESULT Negative Negative [employer] (CLIA #:[id number]) Comment: NEGATIVE TEST RESULT. A negative Cologuard [...] Aguirre et al, N Engl J Med 2014;370(14):6762-3849) The normal value (reference range) for this assay is negative. COLOGUARD RE-SCREENING RECOMMENDATION: Periodic colorectal cancer screening is an important part of preventive healthcare for asymptomatic individuals at average risk for colorectal cancer. Following a negative Cologuard result, the [place] Cancer Society and U.S. Multi-Society Task Force screening guidelines recommend a Cologuard re-screening interval of 3 years. References: [place] Cancer Society Guideline for Colorectal Cancer Screening: https://www.cancer.org/cancer/ltbsv-hfckri-orbbnh/titlzpted-hogmukkdd-vttejjz/ac s-rec ommendations.html.; Ernst DK, Rashad CR, Anai GalarzaK, Colorectal Cancer Screening: Recommendations for Physicians and Patients from the U.S. Multi-Society Task Force on Colorectal Cancer Screening , Am J Gastroenterology 2017; 112:5912-8720. TEST DESCRIPTION: Composite algorithmic analysis of stool [...] (Lizette Jordan al, N Engl J Med 2014;370(14):6993-3991.) Cologuard may produce a false negative or false positive result (no colorectal cancer or precancerous polyp present at colonoscopy follow up). A negative Cologuard test result does not guarantee the absence of CRC or advanced adenoma (pre-cancer). The current Cologuard screening interval is every 3 years. ([place] Cancer Society and U.S. Multi-Society Task Force). Cologuard performance data in a 10,000 patient pivotal study using colonoscopy as the reference method can be accessed at the following location: www.[employer]/results. Additional description of the Cologuard test process, warnings and precautions can be found at www.cologuard.com. STOOL STOOL SPECIMEN / Unknown 06/17/2021 7:30 AM FOOD PREP WORKER 06/18/2021 12:13 PM FOOD PREP WORKER us Patrick Martínez DO BODY FLUIDS AND STOOLS O RDERABLES Final Result Performing Organization Address City/State/[facility] Co de Phone Number [employer] ([address] [facility]) [address] [place] [place] [address], [employer] (CLIA #:[id number]) [address] [place] [address] from Last 3 Months or Most Recently Relevant to Health Maintenance Insurance GENERIC - COMMERCIAL GENERIC - COMMERCIAL GENERIC - COMMERCIAL GENERIC - COMMERCIAL HUMANA Care Teams Poultry Offal Worker Relationship Specialty Start Date End Date Patrick Martínez DO [address] [place] [id number] PCP - General FAMILY PRACTICE 12/21/18
== END 2024-12-18 13:54 | disposition home or self-care (01) ==
PROVIDERS: PCP Family Medicine; Visit Provider Nurse Practitioner Family
DX: R07.89 Other chest pain (principal)
CPT/HCPCS: 71046

== ENCOUNTER 2025-01-29 10:10 | Outpatient (CLI) | payer MEDICARE, SELFPAY ==
--- OUTSIDE RECORDS SUMMARY | 2025-01-29 11:14 | XMS_ITS | Encounter Summary ---
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
--- OUTSIDE RECORDS SUMMARY | 2025-01-29 11:14 | XMS_ITS | Clinical Summary ---
Author Organization [facility] Address [address] [place] [address] Care Team Providers Care Forensic Audit Expert Name Role Phone Patrick Martínez Primary Care [...] MCG/ 0.5 ML DOSE 07/18/2020,07/18/2020,06/20/2020,2020 MODERNA COVID-19 (PIN INSERTER REGULATOR DALE MOISE), MRNA, LNP-S, PF, 50 MCG/ 0.25 ML DOSE 09/03/2021,04/02/2021 Pneumococcal (Pneumovax 23) 07/21/2017 Pneumococcal (Prevnar 13) 02/06/2016 Shingrix 02/06/2020,11/23/2019 Td 05/10/2007 Td (Generic) 05/16/2012 Td (TDVAX) 05/10/2007 Tdap (Generic) 05/16/2012 Zoster (Zostavax) [address]684 Unt/0.65Ml 02/06/2020 Family History Medical History Relation [...] file Not on file Not on file 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 Not on file Not on file Not on file Last Filed Vital Signs Vital Sign Reading Time Taken Comments Blood Pressure 104/76 04/30/2023 9:41 AM WINDOWS SOFTWARE ENGINEER Pulse 81 04/30/2023 9:41 AM WINDOWS SOFTWARE ENGINEER Temperature 36.9 C (98.4 F) 04/27/2023 11:47 AM WINDOWS SOFTWARE ENGINEER Respiratory Rate 16 04/27/2023 11:47 AM WINDOWS SOFTWARE ENGINEER Oxygen Saturation 98% 04/30/2023 9:41 AM WINDOWS SOFTWARE ENGINEER Inhaled Oxygen Concentration - - Weight 78.2 kg (172 lb 6.4 oz) 04/30/2023 9:41 A M WINDOWS SOFTWARE ENGINEER Height 182.9 cm (6') 04/30/2023 9:41 AM WINDOWS SOFTWARE ENGINEER Body Mass Index 23.38 04/30/2023 9:41 AM WINDOWS SOFTWARE ENGINEER Plan of Treatment Health Maintenance Due Date Last Done Comments RSV Immunization or 60+ Years (1 - Risk 60-74 years 1-dose series) 2012 Annual Medicare Wellness Visit 2017 Zoster Vaccines (3 of 3) 04/02/2020 020, 02/06/2020, 11/23/2019 DTaP, Tdap and Td Vaccines (3 - Td or Tdap) 05/16/2022 05/16/2012, 05/16/2012, 05/10/2007, Additional history exists PHQ-2 (Physician [place]) 05/10/2024 Colorectal Cancer Screening FIT-DNA (3 Years) 06/17/2024 06/17/2021 COVID-19 Vaccine ( season) 2025 02/28/2022, 09/03/2021, 04/02/2021, Additional history exists Pneumococcal Vaccine: 50+ Years Completed 07/21/2017, 02/06/2016 [...] W/ REFLX GENOTYPE Routine 06/23/2022 2:28 PM WINDOWS SOFTWARE ENGINEER Chronic hepatitis C without hepatic coma Annual physical exam Screening for endocrine, metabolic and immunity disorder COLOGUARD (EXACT SCIENCE) Routine 06/17/2021 7:30 AM WINDOWS SOFTWARE ENGINEER Screening for malignant neoplasm of colon from Last 3 Months or Most Recently Relevant to Health Maintenance Results * HEPATITIS C RNA W/ REFLX GENOTYPE (06/23/2022 2:28 PM WINDOWS SOFTWARE ENGINEER) HEPATITIS C RNA PCR QNT <15 NOT DETECTED IU/mL [facility] HE[facility] RNA PCR QNT <1.18 NOT DETECTED LogIU/mL [facility] Comment: REFERENCE RANGE: NOT DETECTED IU/mL NOT DETECTED Log IU/mL This test was performed using Real-Time Polymerase Chain Reaction Reportable range is 15 to 100,000,000 IU/mL (1.18-8.00 Log IU/mL). The analytical performance characteristics of this assay have been determined by [employer]. The modifications have not been cleared or approved by the FDA. This assay has been validated pursuant to the CLIA regulations and is used for clinical purposes. For additional information, please refer to http://education.Elevate HR/faq/QCM68k2 (This link is being provided for informational/ educational purposes only.) 06/23/2022 2:28 PM WINDOWS SOFTWARE ENGINEER 06/24/2022 12:22 AM WINDOWS SOFTWARE ENGINEER Narrative Resulting Agency Comment Performing Organization Information: Site ID: [id number] Name: [facility], Address: [address] [place] [phone] Director: Josee Springer MD,PhD,JUNG us Patrick Martínez DO LABORATORY Final Re sult [facility] [address] [phone], * COLOGUARD (OANDA SCIENCE) (06/17/2021 7:30 AM WINDOWS SOFTWARE ENGINEER) COLOGUARD RESULT Negative Negative [employer] (CLIA #:[id number]) Comment: NEGATIVE TEST RESULT. A negative Cologuard [...] Aguirre et al, N Engl J Med 2014;370(14):1840-7957) The normal value (reference range) for this assay is negative. COLOGUARD RE-SCREENING RECOMMENDATION: Periodic colorectal cancer screening is an important part of preventive healthcare for asymptomatic individuals at average risk for colorectal cancer. Following a negative Cologuard result, the [place] Cancer Society and U.S. Multi-Society Task Force screening guidelines recommend a Cologuard re-screening interval of 3 years. References: [place] [employer] Society Guideline for Colorectal Cancer Screening: https://www.cancer.org/cancer/mcron-iapiwo-sgmuca/mrzvtaflx-todwdgjpg-pnbjiym/ac s-rec ommendations.html.; Ernst DK, Rashad CR, Anai GalarzaK, Colorectal Cancer Screening: Recommendations for Physicians and Patients from the U.S. Multi-Society Task Force on Colorectal Cancer Screening , Am J Gastroenterology 2017; 112:3679-0449. TEST DESCRIPTION: Composite algorithmic analysis of stool [...] (Lizette Jordan al, N Engl J Med 2014;370(14):6532-8598.) Cologuard may produce a false negative or false positive result (no colorectal cancer or precancerous polyp present at colonoscopy follow up). A negative Cologuard test result does not guarantee the absence of CRC or advanced adenoma (pre-cancer). The current Cologuard screening interval is every 3 years. ([place] Cancer Society and U.S. Multi-Society Task Force). Cologuard performance data in a 10,000 patient pivotal study using colonoscopy as the reference method can be accessed at the following location: www.VenueSpot.DivX/results. Additional description of the Cologuard test process, warnings and precautions can be found at www.cologuard.com. STOOL STOOL SPECIMEN / Unknown 06/17/2021 7:30 AM WINDOWS SOFTWARE ENGINEER 06/18/2021 12:13 PM WINDOWS SOFTWARE ENGINEER us Patrick Martínez DO BODY FLUIDS AND STOOLS O RDERABLES Final Result Performing Organization Address City/State/[facility] Co de Phone Number [employer] ([address] [facility]) [address] [address], [employer] (CLIA #:[id number]) [address] [place] [address] from Last 3 Months or Most Recently Relevant to Health Maintenance Insurance GENERIC - COMMERCIAL GENERIC - COMMERCIAL GENERIC - COMMERCIAL GENERIC - COMMERCIAL HUMANA Care Teams Forensic Audit Expert Relationship Specialty Start Date End Date Patrick Martínez DO [address] [place] [address] PCP - General FAMILY PRACTICE 12/21/18
--- NOTE | 2025-01-29 11:45 | NEURO_ITS ---
Impression: # Complains of hand pain. Non-diabetic, delgadillo. ? # No Carpal Tunnel Syndrome or ulnar neuropathy. ? # Normal needle/EMG exam. ? # Clinical correlation recommended. Nerve Conduction Studies ?Stim Site NR Peak (ms) P-T Amp (?V) Site1 Site2 Delta-P (ms) Dist (cm) Ra (m/s) Left Median Anti Sensory (2-3nd Digit) Wrist ? 3.0 40.6 Wrist 2-3nd Digit 3.0 14.0 47 Wrist ? 3.2 43.6 Wrist 2-3nd Digit 3.0 14.0 47 Right Median Anti Sensory (2-3nd Digit) Wrist ? 3.3 12.2 Wrist 2-3nd Digit 3.3 14.0 42 Wrist ? 3.3 31.6 Wrist 2-3nd Digit 3.3 14.0 42 Left Radial Anti Sensory (Base 1st Digit) Wrist ? 2.2 37.8 Wrist Base 1st Digit 2.2 0.0 Right Radial Anti Sensory (Base 1st Digit) Wrist ? 2.7 17.7 Wrist Base 1st Digit 2.7 0.0 Left Ulnar Anti Sensory (5th Digit) Wrist ? 2.8 37.0 Wrist 5th Digit 2.8 14.0 50 Right Ulnar Anti Sensory (5th Digit) Wrist ? 2.8 59.1 Wrist 5th Digit 2.8 14.0 50 ?Stim Site NR Onset (ms) O-P Amp (mV) Site1 Site2 Delta-0 (ms) Dist (cm) Ra (m/s) Left Median Motor (Abd Poll Brev) Wrist ? 2.9 4.9 Elbow Wrist 5.8 32.0 55 Elbow ? 8.7 6.7 Right Median Motor (Abd Poll Brev) Wrist ? 4.1 2.3 Elbow Wrist 5.7 32.0 56 Elbow ? 9.8 3.0 Left Ulnar Motor (Abd Dig Minimi) Wrist ? 2.7 6.7 A Elbow Wrist 5.7 32.0 56 A Elbow ? 8.4 5.8 B Elbow Wrist 4.4 24.0 55 B Elbow ? 7.1 4.3 Right Ulnar Motor (Abd Dig Minimi) Wrist ? 2.7 4.1 A Elbow Wrist 5.9 32.0 54 A Elbow ? 8.6 3.4 B Elbow Wrist 4.1 22.0 54 B Elbow ? 6.8 2.1 F Wave Studies ?NR F-Lat (ms) L-R F-Lat (ms) Left Median (Mrkrs) (Abd Poll Brev) ? 31.64 1.11 Right Median (Mrkrs) (Abd Poll Brev) ? 32.76 1.11 Left Ulnar (Mrkrs) (Abd Dig Min) ? 32.15 0.56 Right Ulnar (Mrkrs) (Abd Dig Min) ? 32.72 0.56 Electromyography ?Side Muscle Nerve Root Ins Act Fibs Amp Dur Recrt Comment Right 1stDorInt Ulnar C8-T1 Nml Nml Nml Nml Nml Right Ext Indicis Radial (Post Int) C7-8 Nml Nml Nml Nml Nml Right Ext Digitorum Radial (Post Int) C7-8 Nml Nml Nml Nml Nml Right BrachioRad Radial C5-6 Nml Nml Nml Nml Nml Right PronatorTeres Median C6-7 Nml Nml Nml Nml Nml Right Abd Poll Brev Median C8-T1 Nml Nml Nml Nml Nml Right ABD Dig Min Ulnar C8-T1 Nml Nml Nml Nml Nml Right FlexPolLong Median (Ant Int) C7-8 Nml Nml Nml Nml Nml Right Abd Poll Long Radial (Post Int) C7-8 Nml Nml Nml Nml Nml Left 1stDorInt Ulnar C8-T1 Nml Nml Nml Nml Nml Left Ext Indicis Radial (Post Int) C7-8 Nml Nml Nml Nml Nml Left Ext Digitorum Radial (Post Int) C7-8 Nml Nml Nml Nml Nml Left BrachioRad Radial C5-6 Nml Nml Nml Nml Nml Left PronatorTeres Median C6-7 Nml Nml Nml Nml Nml Left Abd Poll Brev Median C8-T1 Nml Nml Nml Nml Nml Left ABD Dig Min Ulnar C8-T1 Nml Nml Nml Nml Nml Left FlexPolLong Median (Ant Int) C7-8 Nml Nml Nml Nml Nml Left Abd Poll Long Radial (Post Int) C7-8 Nml Nml Nml Nml Nml
== END 2025-01-29 10:11 | disposition home or self-care (01) ==
PROVIDERS: PCP Family Medicine; Visit Provider Nurse Practitioner Family
DX: R20.0 Anesthesia of skin (principal); R20.2 Paresthesia of skin
CPT/HCPCS: 95886; 95911

== ENCOUNTER 2025-04-12 09:57 | Outpatient (CLI) | payer MEDICARE, SELFPAY ==
--- OUTSIDE RECORDS SUMMARY | 2025-04-12 08:45 | XMS_ITS | Encounter Summary ---
Author Organization [facility] RADHA Nascimento [facility] Address [address] [place] [address] Care Team Providers Care Turner Machine Name Role Phone Unavailable Primary Care Provider Unavailabl e Reason for Referral * Radiology Services (Routine) - Authorized Specialty Diagnoses / Procedures Referred By Contac t Referred To Contact Diagnoses Monoclonal gammopathy of unknown significance Procedures XR BONE SURVEY COMPLETE Leonides Eddy MD [address] [employer] [address] [place] [phone] Phone: tel: fax: Referral ID Status Reason Start Date Expiration Date V isits Requested Visits Authorized [id number] Authorized 04/12/2025 05/13/2026 1 1 TRICAL SYSTEMS ENGINEER Reason for Visit * Reason Comments Establish Care Encounter Details Date Type Department Care Team (Late st Contact Info) Description 04/12/2025 8:45 AM ELECTRICAL SYSTEMS ENGINEER Office Visit [facility] Oncology and Hematology - [place] [address] [facility] [address] [place] [address] Leonides Eddy MD [address] [place] [address] Monoclonal gammopathy of unknown significance (Primary Dx) Social History Tobacco Use Types Packs/Day Years Used Date Smoking Tobacco: Former Cigarettes 0.5 30 1 06/13/1973 - 04/12/2004 Smokeless Tobacco: Former Chew Tobacco Cessation:Counseling Given: Not Answered Alcohol Use Standard Drinks/Week Comments Not Currently 0 (1 standard drink = 0.6 oz pur e alcohol) Socially Sex and Gender Information Value Date Recorded Sex Assigned at Not on file Legal Sex Male 1:27 PM ELECTRICAL SYSTEMS ENGINEER Gender Identity Not on file Sexual Orientation Not on file documented as of this encounter Last Filed Vital Signs Vital Sign Reading Time Taken Comments Blood Pressure 165/95 04/12/2025 9:10 AM ELECTRICAL SYSTEMS ENGINEER Pulse 56 04/12/2025 9:06 AM ELECTRICAL SYSTEMS ENGINEER Temperature 36.4 C (97.6 F) 04/12/2025 9:06 AM ELECTRICAL SYSTEMS ENGINEER Respiratory Rate 16 04/12/2025 9:06 AM ELECTRICAL SYSTEMS ENGINEER Oxygen Saturation 98% 04/12/2025 9:06 AM ELECTRICAL SYSTEMS ENGINEER Inhaled Oxygen Concentration - - Weight 78.8 kg (173 lb 12.8 oz) 04/12/2025 9:06 AM ELECTRICAL SYSTEMS ENGINEER Height 182.9 cm (6') 04/12/2025 9:06 AM ELECTRICAL SYSTEMS ENGINEER Body Mass Index 23.57 04/12/2025 9:06 AM ELECTRICAL SYSTEMS ENGINEER documented in this encounter Progress Notes * Leonides Eddy MD - 04/12/2025 9:08 AM CST Hematology-oncology consult Note Requesting Physician Primary Care Physician No primary care provider on file. Problem list There is no problem list on file for this patient. Previous TREATMENT ? Measurable Disease ? Reason for Visit Dorian Stephens is a 74 y.o. male who was referred for consultation for plasma cell disorder. History of present illness This is a pleasant 74-year-old male who has been in good health noted tingling in the chest and was referred to the roustabout head who performed the workup for myeloma. Patient had labs done on March 09 including serum protein electrophoresis with immunofixation that showed IgA lambda monoclonal band present. He denies any bone pain. 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 Denies anyweight loss. He is in good health. Denies any previous history of malignancy. Denies any other new complaints. Past Medical History Past Medical History: Diagnosis Date Diverticulosis of colon Viral hepatitis C Surgical History Past Surgical History: Procedure Laterality Date HX HERNIA REPAIR Medications Current Outpatient Medications Medication Sig Dispense Refill Belsomra 10 mg tablet Take 10 mg by mouth daily at bedtime. No current facility-administered medications for this visit. Allergies No Known Allergies Immunizations: Immunization History Administered Date(s) Administered (SPIKEVAX) (12 YRS UP PRIMARY SERIES) KAITLYNN-19 VACCINE - MRNA-1273(PF) 100 MCG/0.5 ML IM SUSP 06/20/2020, 07/18/2020, 04/02/2021, 09/03/2021 Family History Family History Problem Relation Name Age of Onset Heart Disease Father No Known Problems Mother No Known Problems Brother Cancer Sister unknown primary Social History Social History Tobacco Use Smoking status: Former Current packs/day: 0.00 Average packs/day: 0.5 packs/day for 30.0 years (15.0 ttl pk-yrs) Types: Cigarettes Start date: 04/12/1974 Quit date: 04/12/2004 Years since quittin.0 Smokeless tobacco: Former Types: Chew Substance Use Topics Alcohol use: Not Currently Comment: Socially Review of Systems Constitutional: Patient did not mention fever; no night sweats; no anorexia; no weight loss; no fatique NEENT: Patient did not mention headache; no change in vision; no change in hearing; no sore throat;no dysphagia Respiratory: Patient did not mention shortness of breath; no pleuritic chest pain; no cough; no hemoptysis Cardiac: Patient did not mention cardiac-like chest pain; no palpitations; no orthopnea; no PND; noDOE GI: Patient did not mention abdominal pain; no nausea; no vomiting; no diarrhea; no hematochezia; no melena : Patient did not mention dysuria; no frequency; no hesitancy; no hematuria CLUTCH REBUILDER: Musculosketetal: Patient did not mention bone pain; no arthralgia; no joint swelling; no myalgia; Skin: Patient did not mention pruritis; no rash; no petechiae; no ecchymoses Endocrine: Patient did not mention polydipsia; no polyuria; no unusual weight gain Neuro: Patient did not mention headache; no change in vision; no sensory changes; no muscle weakness; no confusion; no seizures Psych: Patient did not mention anxiety; no depression; Physical Exam Vitals: As per nursing note Constitutional: Well developed, well nourished, no acute distress, non-toxic appearance Teeth and gum. No signs of infection or swelling. Eyes: PERRL, conjunctiva normal HEENT: Atraumatic, external ears normal, nose normal, oropharynx moist, no pharyngeal exudates. no sinus tenderness Neck- normal range of motion, no tenderness, supple Respiratory: No respiratory distress, normal breath sounds, no rales, no wheezing Cardiovascular: Normal rate, normal rhythm, no murmurs, no gallops, no rubs GI: Soft, nondistended, normal bowel sounds, nontender, no splenomegaly, no hepatomegaly, no mass, no rebound, no guarding : No costovertebral angle tenderness Musculoskeletal: No edema, no tenderness, no deformities. Back- no tenderness Integument: Well hydrated, no rash, Digits and nails inspection normal Lymphatic: No lymphadenopathy noted Neurologic: Alert & oriented x 3, CN 2-12 normal, normal motor function, normal sensory function, no focal deficits noted Psychiatric: Speech and behavior appropriate ? labs No results found for this or any previous visit (from the past 24 hours). Labs from March 09 included serum protein electrophoresis that showed IgA lambda monoclonal band present IgA level was 379 IgG 1321 IgM 37 Pathology ? Imaging & Other Studies Performance Status? Assessment / Plan: ? Monoclonal gammopathy of unknown significance. Patient is a pleasant 74-year-old male whohas been in good health and without any previous history of malignancy started having some tinglingin the chest and was referred to the roustabout head and workup was done that showed monoclonal IgA lambda band present. Clinically he is asymptomatic without any bone pain and weight loss. I have discussed the differential diagnosis of elevated IgM monoclonal band and discussed differences between MGUS and multiple myeloma. At this time I will order workup that would include CBC with differential, CMP, serum protein electrophoresis with immunofixation, quantitative immunoglobulin, serum free light chain studies and a skeletal survey. Based on the result we will decide about bone marrow aspiration and biopsy. I have answered all the questions to patient's satisfaction. Follow-up with me in 2 weeks. Thank you very much for allowing me to participate in Dorian Stephens's evaluation and management. Please feel free to contact if I can be of any further assistance in your patient???s care requiring hematology or oncology evaluation. Sincerely, ? ? Leonides Eddy M.D. cell TOBACCO COUNSELING He is not a tobacco/nicotine user. Leonides Eddy MD ,04/12/2025 10:03 AM ? Total time spent 60 minutes, two third of the total time spent counseling patient [id number]. CC:? TRICAL SYSTEMS ENGINEER documented in this encounter Plan of Treatment Upcoming Encounters Date Type Department Care Team (Late st Contact Info) Description 04/26/2025 4:30 PM ELECTRICAL SYSTEMS ENGINEER Telephone Check Up [facility] Oncology and Hematology - [place]anael [address] [facility] [address] [place] [phone] Leonides Eddy MD [address] [facility] [address] [place] [address] Scheduled Orders Name Type Priority Associated Diagnoses Orde r Schedule CBC WITH DIFFERENTIAL Lab Stat Monoclonal gammopathy of unknown significance Expected: 04/12/2025, Expires: 04/12/2026 COMPREHENSIVE METABOLIC PANEL Lab Stat Monoclonal gammopathy of unknown significance Expected: 04/12/2025, Expires: 04/12/2026 IMMUNOGLOBULINS IGG IGA IGM Lab Routine Monoclonal gammopathy of unknown significance Expected: 04/12/2025, Expires: 04/12/2026 KAPPA/LAMBDA, FREE LIGHT CHAINS Lab Routine Monoclonal gammopathy of unknown significance Expected: 04/12/2025, Expires: 04/12/2026 XR BONE SURVEY COMPLETE Imaging Routine Monoclonal gammopathy of unknown significance 1 Occurrences starting 04/12/2025 until 04/12/2026 PROTEIN ELECTROPHORESIS W/REFLEX,SERUM Lab Routine Monoclonal gammopathy of unknown significance Expected: 04/12/2025, Expires: 04/12/2026 documented as of this encounter Visit Diagnoses Diagnosis Monoclonal gammopathy of unknown significance- Primary Monoclonal paraproteinemia documented in this encounter
[2025-04-12 10:32] LABS: Hematocrit 42.3 % (42.0-52.0); Hemoglobin 15.2 g/dL (14.0-18.0); Immature Granulocyte Percent A 0.3 % (0-0.5); Lymphocytes Absolute Auto 0.94 K/mm3 (0.9-3.2); Mean Corpuscular HGB Conc 35.9 g/dl (32-36); Mean Corpuscular Hemoglobin 34.4 pg (26-34); Mean Corpuscular Volume 95.7 fl (80-100); Nucleated Red Blood Cells Absolute Auto 0.000 K/mm3 (0.0-0.012); Nucleated Red Blood Cells Perc 0.0 % (0.0-0.2); Platelet Count Result 129 k/mm3 (150-375); Red Blood Count 4.42 M/mm3 (4.6-6.20); White Blood Count 3.8 K/mm3 (4.5-10.0)
--- OUTSIDE RECORDS SUMMARY | 2025-04-12 10:55 | XMS_ITS | Encounter Summary ---
Author Organization [facility] Address [address] [place] [address] Care Team Providers Care Bridge Toll Collector Name Role Phone Patrick Martínez DO Primary Care Provider + Encounter Details Date Type Department Care Team (Late st Contact Info) Description 06/02/2024 [employer] Message [address] [address] [employer], [facility] Provider Sign Up for NEW [employer] account Social History Tobacco Use Types Packs/Day [...] file Not on file Not on file Sat Tutor Not on file Not on file Not on file documented as of this encounter Plan of Treatment Not on file documented as of this encounter Visit Diagnoses Not on filedocumented in this encounter Additional Health Concerns Assessment Noted Time PHQ-9 Depression Total Score: 0 06/02/19 22 10:06 AM RESIDENT PROGRAMS ASSISTANT documented as of this encounter Care Teams Bridge Toll Collector Relationship Specialty Start Date End Date Patrick Martínez DO [address] [place] [address] PCP - General FAMILY PRACTICE 12/21/18 documented as of this encounter
--- OUTSIDE RECORDS SUMMARY | 2025-04-12 10:55 | XMS_ITS | Clinical Summary ---
Author Organization [facility] Randal claudia Palmira Address [address] [place] [address] Care Team Providers Care Core Oven Tender Name Role Phone Unavailable Primary Care Provider Unavailabl e Allergies No known active allergies Medications Belsomra 10 mg tablet Take 10 mg by mouth daily at bedtime. 01/26/2025 Active Active Problems No known active problems Encounters Date Type Department Care Team Description 04/12/2025 8:45 AM LEAF BLENDER Office Visit [facility] Oncology and Hematology - Natanael [address] [facility] [address] [place] [address] Leonides Eddy MD Monoclonal gammopathy of unknown significance (Primary Dx) from Last 3 Months Family History Medical History Relation Name Comments No Known Problems Brother Heart Disease Father No Known Problems Mother Cancer Sister unknown primary Relation Name Status Comments Brother Father Mother Sister Alive Social History Tobacco Use Types Packs/Day Years [...] on file Legal Sex Male 1:27 PM LEAF BLENDER Gender Identity Not on file Sexual Orientation Not on file Last Filed Vital Signs Vital Sign Reading Time Taken Comments Blood Pressure 165/95 04/12/2025 9:10 AM LEAF BLENDER Pulse 56 04/12/2025 9:06 AM LEAF BLENDER Temperature 36.4 C (97.6 F) 04/12/2025 9:06 AM LEAF BLENDER Respiratory Rate 16 04/12/2025 9:06 AM LEAF BLENDER Oxygen Saturation 98% 04/12/2025 9:06 AM LEAF BLENDER Inhaled Oxygen Concentration - - Weight 78.8 kg (173 lb 12.8 oz) 04/12/2025 9:06 AM LEAF BLENDER Height 182.9 cm (6') 04/12/2025 9:06 AM LEAF BLENDER Body Mass Index 23.57 04/12/2025 9:06 AM LEAF BLENDER Plan of Treatment Upcoming Encounters Date Type Department Care Team (Late st Contact Info) Description 04/26/2025 4:30 PM LEAF BLENDER Telephone Check Up [facility] Oncology and Hematology - Natanael [address] [facility] [address] [place] [address] Leonides Eddy MD [address] [facility] [address] [place] [address] Health Maintenance Due Date Last Done Comments COLORECTAL SCREENING 1997 Colorectal Cancer Screening 1997 FIT-DNA Q 3 years 1997 FIT/FOBT Q 1 year 1997 Flex Sig/CT Colonography Q 5 years 1997 DTAP/TDAP/TD VACCINES (2 - T d or Tdap) 05/16/2022 05/16/2012, 05/16/2012 [place] Preventative Visit/Annual Wellness Visit 05/10/2024 INFLUENZA VACCINE (#1) 2024 , 02/06/2020, 03/01/2019 COVID-19 Vaccine (2024-2 6 season) 2025 09/03/2021, 04/02/2021, 07/18/2020, Additional history exists RSV VACCINE (60+ or ) (1 - 1-dose 75+ series) 2027 PNEUMOCOCCAL VACCINE 50+ YEARS Completed 07/21/2017 , 02/06/2016 ZOSTER VACCINE Completed 02/06/2020, 11/23/2019 Insurance [facility]
--- OUTSIDE RECORDS SUMMARY | 2025-04-12 10:55 | XMS_ITS | Clinical Summary ---
Author Organization [facility] Address [address] [place] [address] Care Team Providers Care Pattern Chart Writer Name Role Phone Patrick Martínez Primary Care [...] 05/22/2019 Chronic hepatitis C without hepatic coma 018 Primary insomnia 10/14/2017 Chronic insomnia 05/10/2003 Resolved Problems Problem Noted Date Diagnosed Date Resolved Date Diarrhea of presumed infectious origin 10/14/2017 01/05/2018 Immunizations Immunization Administration Dates Next Due Fluzone High Dose - >Age 65 (Prefilled Syringe) 02/28/2022,02/06/2020,03/01/2019 Hepatitis B(Engerix B Adult) 08/04/2018,01/06/20 18,11/29/2017 Influenza Adult (Generic) 03/21/2023,,03/04/2021,2020,02/06/2020,02/16/2017 MODERNA COVID-19 (12+) MRNA, LNP-S, PF, 100 MCG/ 0.5 ML DOSE 07/18/2020,07/18/2020,06/20/2020,2020 MODERNA COVID-19 (POST MANAGER DALE MOISE), MRNA, LNP-S, PF, 50 MCG/ 0.25 ML DOSE 09/03/2021,04/02/2021 Pneumococcal (Pneumovax 23) 07/21/2017 Pneumococcal (Prevnar 13) 02/06/2016 Shingrix 02/06/2020,11/23/2019 Td 05/10/2007 Td (Generic) 05/16/2012 Td (TDVAX) 05/10/2007 Tdap (Generic) 05/16/2012 Zoster (Zostavax) 18458 Unt/0.65Ml 02/06/2020 Family History Medical History Relation [...] file Not on file Not on file Ticker Maintainer Not on file Not on file Not on file Last Filed Vital Signs Vital Sign Reading Time Taken Comments Blood Pressure 104/76 04/30/2023 9:41 AM MICROSOFT SYSTEMS ENGINEER Pulse 81 04/30/2023 9:41 AM MICROSOFT SYSTEMS ENGINEER Temperature 36.9 C (98.4 F) 04/27/2023 11:47 AM MICROSOFT SYSTEMS ENGINEER Respiratory Rate 16 04/27/2023 11:47 AM MICROSOFT SYSTEMS ENGINEER Oxygen Saturation 98% 04/30/2023 9:41 AM MICROSOFT SYSTEMS ENGINEER Inhaled Oxygen Concentration - - Weight 78.2 kg (172 lb 6.4 oz) 04/30/2023 9:41 A M MICROSOFT SYSTEMS ENGINEER Height 182.9 cm (6') 04/30/2023 9:41 AM MICROSOFT SYSTEMS ENGINEER Body Mass Index 23.38 04/30/2023 9:41 AM MICROSOFT SYSTEMS ENGINEER Plan of Treatment Health Maintenance Due Date Last Done Comments Hepatitis A Vaccines (1 of 2 - Risk 2-dose series) 1971 RSV Immunization or 60+ Years (1 - Risk 60-74 years 1-dose series) 2012 Annual Medicare Wellness Visit 2017 Zoster Vaccines (3 of 3) 04/02/2020 020, 02/06/2020, 11/23/2019 DTaP, Tdap and Td Vaccines (3 - Td or Tdap) 05/16/2022 05/16/2012, 05/16/2012, 05/10/2007, Additional history exists PHQ-2 (Physician [place]) 05/10/2024 Colorectal Cancer Screening FIT-DNA (3 Years) 06/17/2024 06/17/2021, 06/17/2021 COVID-19 Vaccine ( season) 2025 02/28/2022, 09/03/2021, 04/02/2021, Additional history exists Influenza Adult (#1) 2025 03/21/2023, 02/28/2022, 02/28/2022, Additional history exists Pneumococcal Vaccine: 50+ Years Completed 07/21/2017, 02/06/2016 Hepatitis C Completed 12/01/2022, 06/10, 06/23/2022, Additional history exists Meningococcal B Vaccine Aged Out No l onger eligible based on patient's age to complete this topic Meningococcal Vaccine Aged Out No analia derrick eligible based on patient's age to complete this topic RSV Immunizations Under 20 Months Aged Out No longer eligible based on patient's age to complete this topic Procedures Procedure Name Priority Date/Time Associated Diagnosis Comments HEPATITIS C RNA W/ REFLX GENOTYPE Routine 06/23/2022 2:28 PM MICROSOFT SYSTEMS ENGINEER Chronic hepatitis C without hepatic coma Annual physical exam Screening for endocrine, metabolic and immunity disorder COLOGUARD (EXACT SCIENCE) Routine 06/17/2021 7:30 AM MICROSOFT SYSTEMS ENGINEER Screening for malignant neoplasm of colon from Last 3 Months or Most Recently Relevant to Health Maintenance Results * HEPATITIS C RNA W/ REFLX GENOTYPE (06/23/2022 2:28 PM MICROSOFT SYSTEMS ENGINEER) HEPATITIS C RNA PCR QNT <15 NOT DETECTED IU/mL [facility] HEPATITIS C RNA PCR QNT <1.18 NOT DETECTED LogIU/mL [facility] Comment: REFERENCE RANGE: NOT DETECTED IU/mL NOT DETECTED Log IU/mL This test was performed using Real-Time Polymerase Chain Reaction Reportable range is 15 to 100,000,000 IU/mL (1.18-8.00 Log IU/mL). The analytical performance characteristics of this assay have been determined by [facility]. The modifications have not been cleared or approved by the FDA. This assay has been validated pursuant to the CLIA regulations and is used for clinical purposes. For additional information, please refer to http://education.HEXIO/faq/NEJ52l8 (This link is being provided for informational/ educational purposes only.) 06/23/2022 2:28 PM MICROSOFT SYSTEMS ENGINEER 06/24/2022 12:22 AM MICROSOFT SYSTEMS ENGINEER Narrative Resulting Agency Comment Performing Organization Information: Site ID: [id number] Name: [facility], Address: [address] [place] [id number] Director: Josee Springer MD,PhD,JUNG us Patrick Martínez DO LABORATORY Final Re sult [facility] - DAMASO ORDERS MORENA CHRISTOPHER[address] [address], * COLOGUARD (EXACT SCIENCE) (06/17/2021 7:30 AM MICROSOFT SYSTEMS ENGINEER) Pathologist [facility] COLOGUARD RESULT Negative Negative [facility] (CLIA #:[id number]) Comment: NEGATIVE TEST RESULT. A negative Cologuard [...] Aguirre et al, N Engl J Med 2014;370(14):0143-6654) The normal value (reference range) for this assay is negative. COLOGUARD RE-SCREENING RECOMMENDATION: Periodic colorectal cancer screening is an important part of preventive healthcare for asymptomatic individuals at average risk for colorectal cancer. Following a negative Cologuard result, the [place] Cancer Society and U.S. Multi-Society Task Force screening guidelines recommend a Cologuard re-screening interval of 3 years. References: [place] [employer] Guideline for Colorectal Cancer Screening: https://www.cancer.org/cancer/pqbfe-qthbvp-ayyktr/zdbknjdpv-ektikmnqr-hjmfojy/ac s-rec ommendations.html.; Ernst BESS, Rashad KIRK, Anai GalarzaK, Colorectal Cancer Screening: Recommendations for Physicians and Patients from the U.S. Multi-Society Task Force on Colorectal Cancer Screening , Am J Gastroenterology 2017; 112:7891-9575. TEST DESCRIPTION: Composite algorithmic analysis of stool [...] Aguirre et al, N Engl J Med 2014;370(14):9448-5154.) Cologuard may produce a false negative or false positive result (no colorectal cancer or precancerous polyp present at colonoscopy follow up). A negative Cologuard test result does not guarantee the absence of CRC or advanced adenoma (pre-cancer). The current Cologuard screening interval is every 3 years. ([place] Cancer Society and U.S. Multi-Society Task Force). Cologuard performance data in a 10,000 patient pivotal study using colonoscopy as the reference method can be accessed at the following location: www.[employer]/results. Additional description of the Cologuard test process, warnings and precautions can be found at [email or web address].[email or web address]. STOOL STOOL SPECIMEN / Unknown 06/17/2021 7:30 AM MICROSOFT SYSTEMS ENGINEER 06/18/2021 12:13 PM MICROSOFT SYSTEMS ENGINEER us Patrick Martínez DO BODY FLUIDS AND STOOLS O RDERABLES Final Result Performing Organization Address City/State/[facility] Co de Phone Number adQ ([facility]) [address] [place] [address], [email or web address] (CLIA #:[id number]) [address] [place] [address] from Last 3 Months or Most Recently Relevant to Health Maintenance Insurance GENERIC - COMMERCIAL GENERIC - COMMERCIAL GENERIC - COMMERCIAL GENERIC - COMMERCIAL [address] [place] [address] MEDICARE Care Teams Pattern Chart Writer Relationship Specialty Start Date End Date Patrick Martínez DO [address] [place] [address] [phone] PCP - General FAMILY PRACTICE 12/21/18
[2025-04-12 13:08] LABS: Alanine Aminotransferase 16 U/L (6-50); Albumin Level 4.5 g/dL (3.5-5.1); Alkaline Phosphatase 83 U/L (38-126); Anion Gap 3 mmol/L (4-12); Aspartate Amino Transferase 34 U/L (17-59); Bilirubin,Total 0.6 mg/dL (0.2-1.3); Blood Urea Nitrogen 18 mg/dL (9-20); Calcium 9.3 mg/dL (8.4-10.2); Carbon Dioxide 30 mmol/L (22-30); Chloride 96 mmol/L (98-107); Estimated Glomerular Filt Rate > 60; Glucose 107 mg/dL (65-110); Potassium 4.9 mmol/L (3.4-5.0); Sodium 129 mmol/L (137-145); Total Protein 8.0 g/dL (6.3-8.2)
[2025-04-12 13:17] LABS: Immunoglobulin A 439 mg/dL (70-400); Immunoglobulin G 1506 mg/dL (700-1600); Immunoglobulin M 40 mg/dL (40-230)
[2025-04-13 14:08] LABS: Free Lambda Lt Chains, Serum 28.2 mg/L (5.7-26.3); Kappa/Lambda Ratio, Serum 0.73 (0.26-1.65)
[2025-04-13 15:09] LABS: Albumin 3.9 g/dL (2.9-4.4); Alpha-1-Globulin 0.2 g/dL (0.0-0.4); Alpha-2-Globulin 0.6 g/dL (0.4-1.0); Gamma Globulin 1.3 g/dL (0.4-1.8)
== END 2025-04-12 09:58 | disposition home or self-care (01) ==
LOC: ANHLAB 09:57
PROVIDERS: PCP Family Medicine; Visit Provider Internal Medicine Hematology & Oncology
DX: D47.2 Monoclonal gammopathy (principal)
CPT/HCPCS: 36415; 80053; 82784; 83521; 84155; 84165; 85025

== ENCOUNTER 2025-04-12 14:13 | Outpatient (CLI) | payer MEDICARE, SELFPAY ==
--- NOTE | ~2025-04-12 | XR_ITS ---
XR bone survey comp/metastic 04/12/2025 15:38 Indication: Monoclonal gammopathy. Tingling in chest for 6 months. Procedure: 33 images of the skeleton 4 bone survey Comparison: No prior studies for comparison. Findings: Mild cervical, thoracic and lumbar spondylosis with curvature of the thoracic and lumbar spine. Moderate colonic fecal loading. No focal lytic or blastic lesions. No focal soft tissue abnormality. No foreign bodies. Impression: 1: No suspicious lytic or blastic lesions are identified to suggest metastatic disease or myeloma. Reviewed, dictated and finalized at location I. MACY ORDER ENTRY TECHNICIAN Impression: 1: No suspicious lytic or blastic lesions are identified to suggest metastatic disease or myeloma.
== END 2025-04-12 14:14 | disposition home or self-care (01) ==
LOC: GOSHIMG 14:15
PROVIDERS: PCP Family Medicine; Visit Provider Internal Medicine Hematology & Oncology
DX: D47.2 Monoclonal gammopathy (principal)
CPT/HCPCS: 77075